=== PATIENT | female | born 1945 | race Caucasian/White ===

== ENCOUNTER 2020-10-09 08:59 | Day surgery (SDC) | payer MEDICARE, SELFPAY ==
[2020-10-03 11:32] VITALS: BMI 40.0
--- NOTE | 2020-10-04 16:50 | MHC.SHP ---
Pre-Procedural Eval Section A The patient is an INPATIENT: No The History & Physical has been completed within 30 days and I have reviewed it.: Yes Section B Chief Complaint: Cataract Right Eye Allergies: Allergies Allergy/AdvReac Type Severity Reaction Status Date / Time Erythromycin Allergy Intermediate swelling, Verified 10/03/20 11:37 itching Penicillins Allergy Intermediate itching/swe Verified 10/03/20 11:37 lling/rash Plan Diagnosis/Plan: Unchanged I have reviewed the history and physical and performed a pertinent physical examination on my patient. No changes have occurred unless specified.
--- NOTE | 2020-10-06 09:50 | HO.ANESPROP2 ---
Documented by User: Jo-Ann Bustillo 10/06/20 09:52 HPI - Anesthesia Eval Consult details Narrative: 75yo F for Right Cataract Extraction IOL Insertion PCP cleared No prev cataract on record PMFSH Past Medical History Medical History COVID-19 vaccine administered Elevated cholesterol GERD (gastroesophageal reflux disease) History of anxiety History of positive PPD Hypothyroid Surgical History Surgical History History of total replacement of right hip Hx of cholecystectomy Hx of hysterectomy Social History Social History Smoking Status: Former smoker Tobacco Type: Cigarette Years Smoked: 40 Smoking Quit Date: 2002 Use of substances other than those prescribed or required for medical reasons: No Have you been hit, kicked, punched, or otherwise hurt by someone within the past year? If so, by whom?: No Are you DNR?: No Advance Directives Information Provided: No Recently lost weight without trying: No Eating poorly because of decreased appetite: No Nutrition Risks: No Nutritional Risk Meds Allergies Allergy/AdvReac Type Severity Reaction Status Date / Time Erythromycin Allergy Intermediate swelling, Verified 10/03/20 11:37 itching Penicillins Allergy Intermediate itching/swe Verified 10/03/20 11:37 lling/rash Home Medications Medication Instructions Recorded Confirmed Last Taken Type citalopram 1 tab PO BEDTIME 10/03/20 10/03/20 Unknown History ibuprofen-diphenhydramine cit 1 cap PO BEDTIME 10/03/20 10/03/20 Unknown History [Advil PM] levothyroxine 1 tab PO BEDTIME 10/03/20 10/03/20 Unknown History omeprazole 20 mg PO BEDTIME 10/03/20 10/03/20 Unknown History simvastatin 1 tab PO BEDTIME 10/03/20 10/03/20 Unknown History Exam Exam Date and Time: October 06, 2020 0950 Height,Weight and Vital Signs: Height 5 ft 3 in Weight 102.512 kg Assessment and Plan Assessment Anesthesia Assessment: Chart Reviewed Documented by User: Carson Cooper 10/09/20 10:41 PMFSH Past Medical History Medical History COVID-19 vaccine administered Elevated cholesterol GERD (gastroesophageal reflux disease) History of anxiety History of positive PPD Hypothyroid Surgical History Surgical History History of total replacement of right hip Hx of cholecystectomy Hx of hysterectomy Social History Social History Smoking Status: Former smoker Tobacco Type: Cigarette Years Smoked: 40 Smoking Quit Date: 2002 Use of substances other than those prescribed or required for medical reasons: No Have you been hit, kicked, punched, or otherwise hurt by someone within the past year? If so, by whom?: No Are you DNR?: No Advance Directives Information Provided: No Recently lost weight without trying: No Eating poorly because of decreased appetite: No Nutrition Risks: No Nutritional Risk Meds Allergies Allergy/AdvReac Type Severity Reaction Status Date / Time Erythromycin Allergy Intermediate swelling, Verified 10/03/20 11:37 itching Penicillins Allergy Intermediate itching/swe Verified 10/03/20 11:37 lling/rash Home Medications Medication Instructions Recorded Confirmed Last Taken Type citalopram 1 tab PO BEDTIME 10/03/20 10/03/20 Unknown History ibuprofen-diphenhydramine cit 1 cap PO BEDTIME 10/03/20 10/03/20 Unknown History [Advil PM] levothyroxine 1 tab PO BEDTIME 10/03/20 10/03/20 Unknown History omeprazole 20 mg PO BEDTIME 10/03/20 10/03/20 Unknown History simvastatin 1 tab PO BEDTIME 10/03/20 10/03/20 Unknown History Exam Airway Mallampati Class: III TM Dist: >3cm Neck ROM: Full
[2020-10-09 10:06] VITALS: BP 141/80; PULSE 84; RESP 18; TEMP 36.1; O2SAT 95
[2020-10-09] MEDS: Tetracaine HCl/PF 0.5% Oph Sol 4 ML DROPS 1 DROP EYE-RIGHT (10:10)
[2020-10-09] MEDS: Phenylephrine HCL 2.5% Oph SoL 2 ML BOTTLE 1 DROP EYE-RIGHT ×3 (10:13→10:16)
[2020-10-09] MEDS: Tropicamide 1 % Ophth Sol 3 ML BTL 1 DROP EYE-RIGHT ×3 (10:13→10:16)
[2020-10-09] MEDS: Lactated Ringers 500 ML 50 ML IV (10:25)
--- NOTE | 2020-10-09 11:31 | HO.PNOPHT ---
Ophthalmology Procedure Procedure Date of Service: 10/09/20 Ophthalmology Viscoelastic: Chin Dunnt Dual Pack Pro Ophthalmology Lenses: TECARIS [id number] (21) Procedure Notes: PREOPERATIVE DIAGNOSIS: Decreased visual acuity right eye secondary to cataract POSTOPERATIVE DIAGNOSIS: Same PROCEDURE: Right cataract extraction with intraocular lens insertion SURGEON: Burt Christensen M.D. ANESTHESIA: Topical/MAC ESTIMATED BLOOD LOSS: None COMPLICATIONS: None After obtaining informed consent, the patient was brought to the operating room suite and placed in the supine position. After adequate sedation per anesthesia, topical drops of Tetracaine were given to the right eye. The eye was then prepped and draped in the usual sterile fashion. The operating room microscope was then positioned over the operative eye and a lid speculum placed. A paracentesis was created. Viscoelastic was then instilled into the anterior chamber. A three plane incision was then created temporally, utilizing a 2.85 mm keratome. Capsulotomy forceps were then utilized to create a circular tear capsulotomy. Hydrodissection and hydrodelineation were carried out until adequate mobilization of the nucleus occurred. Phacoemulsification was then utilized to remove the dense central nucleus followed by removal of the cortical material utilizing the automated aspiration irrigation unit. Viscoelastic was instilled into the posterior capsular bag followed by placement of a posterior chamber intraocular lens without difficulty. The residual Viscoelastic was then removed utilizing the automated IA machine. The wound was checked and found to be watertight. The patient tolerated the procedure well and the lid speculum was removed. Intracameral injection of Vigamox 0.1 mL followed by a subtenon injection of Kenalog-40 0.2 mL were administered. The patient will be seen in the a.m.
[2020-10-09 11:57] VITALS: BP 132/71; PULSE 73; RESP 16; TEMP 36.2; O2SAT 99
== END 2020-10-09 12:20 | disposition home or self-care (01) ==
PROVIDERS: PCP Nurse Practitioner Family; Visit Provider Ophthalmology
PROC: (CPT 66985; principal; 2020-10-09 12:00)
DX: H25.11 Age-related nuclear cataract, right eye (principal); H52.4 Presbyopia; E03.9 Hypothyroidism, unspecified; Z79.899 Other long term (current) drug therapy; Z87.891 Personal history of nicotine dependence
CPT/HCPCS: 66984; J2250; J3300; V2632

== ENCOUNTER 2020-10-23 10:15 | Day surgery (SDC) | payer MEDICARE, SELFPAY ==
[2020-10-03 11:39] VITALS: BMI 40.0
--- NOTE | 2020-10-19 08:37 | MHC.SHP ---
Pre-Procedural Eval Section A The patient is an INPATIENT: No The History & Physical has been completed within 30 days and I have reviewed it.: Yes Section B Chief Complaint: Left Eye Cataract Allergies: Allergies Allergy/AdvReac Type Severity Reaction Status Date / Time Erythromycin Allergy Intermediate swelling, Verified 10/03/20 11:37 itching Penicillins Allergy Intermediate itching/swe Verified 10/03/20 11:37 lling/rash Plan Diagnosis/Plan: Unchanged I have reviewed the history and physical and performed a pertinent physical examination on my patient. No changes have occurred unless specified.
--- NOTE | 2020-10-20 08:47 | HO.ANESPROP2 ---
HPI - Anesthesia Eval Consult details Narrative: 75yo F for Left Cataract Extraction IOL Insertion PCP cleared Right eye done 10/09/20: Midaz 2 PMFSH Past Medical History Medical History COVID-19 vaccine administered Elevated cholesterol GERD (gastroesophageal reflux disease) History of anxiety History of positive PPD Hypothyroid Surgical History Surgical History History of total replacement of right hip Hx of cholecystectomy Hx of hysterectomy Social History Social History Years Smoked: 40 Use of substances other than those prescribed or required for medical reasons: No Have you been hit, kicked, punched, or otherwise hurt by someone within the past year? If so, by whom?: No Are you DNR?: No Advance Directives Information Provided: No Recently lost weight without trying: No Eating poorly because of decreased appetite: No Nutrition Risks: No Nutritional Risk Meds Allergies Allergy/AdvReac Type Severity Reaction Status Date / Time Erythromycin Allergy Intermediate swelling, Verified 10/23/20 11:05 itching Penicillins Allergy Intermediate itching/swe Verified 10/23/20 11:05 lling/rash Home Medications Medication Instructions Recorded Confirmed Last Taken Type citalopram 1 tab PO BEDTIME 10/03/20 10/03/20 Unknown History ibuprofen-diphenhydramine cit 1 cap PO BEDTIME 10/03/20 10/03/20 Unknown History [Advil PM] levothyroxine 1 tab PO BEDTIME 10/03/20 10/03/20 Unknown History omeprazole 20 mg PO BEDTIME 10/03/20 10/03/20 Unknown History simvastatin 1 tab PO BEDTIME 10/03/20 10/03/20 Unknown History Exam Exam Date and Time: October 20, 2020 0847 Height,Weight and Vital Signs: Height 5 ft 3 in Weight 102.512 kg Assessment and Plan Assessment Anesthesia Assessment: Chart Reviewed
[2020-10-23 11:12] VITALS: BP 143/79; PULSE 93; RESP 18; TEMP 36.2; O2SAT 97
[2020-10-23] MEDS: Lactated Ringers 500 ML 50 ML IV (11:15)
[2020-10-23] MEDS: Tetracaine HCl/PF 0.5% Oph Sol 4 ML DROPS 1 DROP EYE-LEFT (11:17)
[2020-10-23] MEDS: Tropicamide 1 % Ophth Sol 3 ML BTL 1 DROP EYE-LEFT ×3 (11:18→11:24)
[2020-10-23] MEDS: Phenylephrine HCL 2.5% Oph SoL 2 ML BOTTLE 1 DROP EYE-LEFT ×3 (11:20→11:26)
--- NOTE | 2020-10-23 12:04 | HO.PNOPHT ---
Ophthalmology Procedure Procedure Date of Service: 10/23/20 Ophthalmology Viscoelastic: Healon Duet Dual Pack Pro Ophthalmology Lenses: TECNIS [id number] (20.5) Procedure Notes: PREOPERATIVE DIAGNOSIS: Decreased visual acuity left eye secondary to cataract POSTOPERATIVE DIAGNOSIS: Same PROCEDURE: Left cataract extraction with intraocular lens insertion SURGEON: Burt Christensen M.D. ANESTHESIA: Topical/MAC ESTIMATED BLOOD LOSS: None COMPLICATIONS: None After obtaining informed consent, the patient was brought to the operation room suite and placed in the supine position. After adequate sedation per anesthesia, topical drops of Tetracaine were given to the left eye. The eye was then prepped and draped in the usual sterile fashion. The operating room microscope was then positioned over the operative eye and a lid speculum placed. A paracentesis was created. Viscoelastic was then instilled into the anterior chamber. A three plane incision was then created temporally, utilizing a 2.85 mm keratome. Capsulotomy forceps were then utilized to create a circular tear capsulotomy. Hydrodissection and hydrodelineation were carried out until adequate mobilization of the nucleus occurred. Phacoemulsification was then utilized to remove the dense central nucleus followed by removal of the cortical material utilizing the automated aspiration irrigation unit. Viscoat elastic was instilled into the posterior capsular bag followed by placement of a posterior chamber intraocular lens without difficulty. The residual Viscoat elastic was then removed utilizing the automated IA machine. The wound was check and found to be watertight. The patient tolerated the procedure well and the lid speculum was removed. Intracameral injection of Vigamox 0.1 mL followed by a subtenon injection of Kenalog-40 0.2 mL were administered. The patient will be seen in the a.m.
[2020-10-23 12:37] VITALS: BP 113/70; PULSE 79; RESP 16; TEMP 36.5; O2SAT 95
== END 2020-10-23 12:39 | disposition home or self-care (01) ==
PROVIDERS: PCP Nurse Practitioner Family; Visit Provider Ophthalmology
PROC: (CPT 66985; principal; 2020-10-23 13:00)
DX: H25.12 Age-related nuclear cataract, left eye (principal); H52.4 Presbyopia; E03.9 Hypothyroidism, unspecified; Z87.891 Personal history of nicotine dependence; Z79.899 Other long term (current) drug therapy
CPT/HCPCS: 66984; J2250; J3010; J3300; V2632

== ENCOUNTER 2020-12-13 11:09 | Emergency (ER) | payer MEDICARE, SELFPAY ==
--- NOTE | ~2020-12-13 | XR_ITS ---
EXAMINATION: XR CHEST CLINICAL INFORMATION: Shortness of breath COMPARISON: Previous chest and rib x-ray May 2018 TECHNIQUE: 2 views of the chest were obtained. FINDINGS: No significant abnormality is noted involving the heart, lungs, mediastinum, bony thorax or soft tissues. XR/XR chest 2V IMPRESSION: Unremarkable examination.
--- NOTE | 2020-12-13 07:18 | ECG_ITS ---
Test Reason : SOB Blood Pressure : / mmHG Vent. Rate : 069 BPM Atrial Rate : 069 BPM P-R Int : 154 ms QRS Dur : 078 ms QT Int : 414 ms P-R-T Axes : 048 025 046 degrees QTc Int : 443 ms Normal sinus rhythm Normal ECG When compared with ECG of 31-MAR-2014 12:46, No significant change was found Referred By: Marlene Robles Electronically Signed By:Luis M Daniels
[2020-12-13 11:17] VITALS: BP 123/67; PULSE 78; RESP 24; TEMP 36.6; O2SAT 93; BMI 37.2
--- NOTE | 2020-12-13 11:46 | ED_ITS ---
HPI - SOB/Dyspnea General Chief Complaint: Dyspnea Stated Complaint: difficulty breathing Time Seen by Provider: 12/13/20 11:46 Source: patient Mode of arrival: ambulatory Limitations: no limitations History of Present Illness MD elicited complaint: shortness of breath and cough Onset (ago): day(s) (2) Context: other (did start a one shot supplement for ketosis) Timing: intermittent Severity: mild Exacerbating factors: coughing Relieving factors: nothing Associated symptoms: denies other symptoms Treatment prior to arrival: none Related Data Home Medications Medication Instructions Recorded Confirmed citalopram 1 tab PO BEDTIME 10/03/20 10/03/20 ibuprofen-diphenhydramine cit 1 cap PO BEDTIME 10/03/20 10/03/20 [Advil PM] levothyroxine 1 tab PO BEDTIME 10/03/20 10/03/20 omeprazole 20 mg PO BEDTIME 10/03/20 10/03/20 simvastatin 1 tab PO BEDTIME 10/03/20 10/03/20 Previous Rx's Medication Instructions Recorded prednisone 40 mg PO DAILY 4 Days #8 tab 12/13/20 Allergies Allergy/AdvReac Type Severity Reaction Status Date / Time Erythromycin Allergy Intermediate swelling, Verified 10/23/20 11:05 itching Penicillins Allergy Intermediate itching/swe Verified 10/23/20 11:05 lling/rash Review of Systems Review of Systems: Constitutional : No Fever, No Chills ENT/Mouth : No sore throat, No Rhinorrhea, No Swallowing Difficulty Eyes: No Eye Pain, No Swelling, No Redness Cardiovascular : No Chest Pain, positive SOB, No Orthopnea, no Edema Respiratory : pos Cough, No Sputum, No Wheezing, positive dyspnea Gastrointestinal : No Nausea, No Vomiting, No Diarrhea, No abdominal Pain, No Hematochezia, No Melena Genitourinary : No Dysuria, No Urinary Frequency, No Hematuria Musculoskeletal : No joint pain, No Myalgias Skin : No Skin Lesions, No rash Neuro : No Weakness, No Numbness, No Dizziness, No Headache Psych : No Anxiety/Panic, No Depression Heme/Lymph: No Bruising, No Lymphadenopathy Endocrine : No Polyuria, No Polydipsia All other systems reviewed and are negative PMFSH Past Medical History Attestation statement: The following information was validated with the patient. Medical History COVID-19 vaccine administered Elevated cholesterol GERD (gastroesophageal reflux disease) History of anxiety History of positive PPD Hypothyroid Surgical History History of total replacement of right hip Hx of cholecystectomy Hx of hysterectomy Social History Social History (Updated 12/13/20 @ 11:56 by Marlene Robles DO) Patient Tobacco Use Status: Former Tobacco user Years Smoked: 40 Use of substances other than those prescribed or required for medical reasons: No Advance Directives: No Advance Directives Information Provided: No Physical Exam Vital Signs: Vital Signs: Last Vital Signs Temp 97.8 F 12/13/20 11:17 Pulse 84 12/13/20 13:22 Resp 16 12/13/20 13:22 BP 133/51 L 12/13/20 13:22 Pulse Ox 99 12/13/20 13:22 Body Mass Index 37.2 Appearance: Alert. Oriented X3. No acute distress. Eyes: Pupils equal, round and reactive to light. ENT: Pharynx normal. Neck: Normal inspection. Neck supple. CVS: Normal heart rate and rhythm. Pulses normal. Respiratory: No respiratory distress. Breath sounds diminished throughout, dry bronchospastic cough Abdomen: Soft and non-tender. Skin: Skin warm and dry. Normal skin color. Normal skin turgor. Extremities: No lower extremity edema. No calf ttp Neuro: Oriented X 3. No motor deficit. No sensory deficit. Course Course Course Narrative: 1 to 2 days of symptoms neg ddimer, neg troponin, CXR negative, BNP negative - feels better after neb stable for DC at this time, will start on low dose prednisone and do INH teaching, sats 93% on RA MDM - SOB/Dyspnea MDM Narrative Medical decision making narrative: 75 yo female with hx of hypothyroidism, GERD, depression, HLD startd new ketone diet and started taking a supplement one shot - c/o dyspnea x 2 days has a dry bronchospastic cough will need labs, troponin, CXR, COVID swab, EKG ddimer - dispo per results and findings. Lab Data Result diagrams: 12/13/20 12:11 12/13/20 12:11 Labs: Lab Results 12/13/20 12/13/20 12/13/20 Range/Units 11:23 12:11 12:11 WBC 7.8 (4.8-10.8) X10*3/uL RBC 4.59 (4.20-5.50) X10*6/uL Hgb 13.0 (12.0-16.0) g/dl Hct 40.4 (37-47) % MCV 88.0 (80-98) fL MCH 28.3 (27.0-33.0) pg MCHC 32.2 (31.0-35.0) g/dl RDW 13.3 (11.0-16.0) % Plt Count 216 (160-400) X10*3/uL MPV 10.6 (9.4-12.3) fL Immature Gran % (Auto) 0.3 (0.0-0.4) % Neut % (Auto) 51.9 (45-73) % Lymph % (Auto) 32.3 (20-40) % [place] % (Auto) 4.9 (2-11) % Eos % (Auto) 9.7 H (0-4) % Baso % (Auto) 0.9 (0-2) % Lymph # (Auto) 2.5 (1.2-4.9) X10*3/uL [place] # (Auto) 0.4 (0.1-1.2) X10*3/uL Eos # (Auto) 0.8 H (0.0-0.4) X10*3/uL Baso # (Auto) 0.1 (0.0-0.2) X10*3/uL Abs Immat Gran (auto) 0.02 (0.00-0.03) X10*3/uL Absolute Neuts (auto) 4.1 (2.0-8.3) X10*3/uL Absolute Nucleated RBC 0.000 (0.0-0.012) X10*3/uL Nucleated RBC % (auto) 0.0 (0.0-0.2) /100WBC D-Dimer NG/ML Sodium 141 (135-145) mmol/L Potassium 4.0 (3.3-5.1) mmol/L Chloride 106 (96-108) mmol/L Carbon Dioxide 26 (22-29) mmol/L Anion Gap 13 (12-20) BUN 14 (9-16) mg/dL Creatinine 0.87 (0.5-1.4) mg/dL Estim Creat Clear Calc 63.2 Estimated GFR > 60 Random Glucose 108 (60-115) mg/dL Calcium 9.5 (8.4-10.2) mg/dL Magnesium 2.0 (1.6-2.6) mg/dL Total Bilirubin 0.3 (0.0-1.0) mg/dL Direct Bilirubin < 0.2 (0.0-0.5) mg/dL AST 14 (5-31) U/L ALT 9 (0-31) U/L Alkaline Phosphatase 75 (39-117) U/L Troponin I High Sens (<3.5-17.0) ng/L B-Natriuretic Peptide (<100) pg/mL Total Protein 6.4 L (6.5-8.0) g/dL Albumin 4.0 (3.5-5.0) g/dL Lipase 47 (8-78) U/L COVID-19 (AXEL) Negative (Negative) COVID-19 Clin Com See Note 12/13/20 12/13/20 Range/Units 12:11 12:11 WBC (4.8-10.8) X10*3/uL RBC (4.20-5.50) X10*6/uL Hgb (12.0-16.0) g/dl Hct (37-47) % MCV (80-98) fL MCH (27.0-33.0) pg MCHC (31.0-35.0) g/dl RDW (11.0-16.0) % Plt Count (160-400) X10*3/uL MPV (9.4-12.3) fL Immature Gran % (Auto) (0.0-0.4) % Neut % (Auto) (45-73) % Lymph % (Auto) (20-40) % [place] % (Auto) (2-11) % Eos % (Auto) (0-4) % Baso % (Auto) (0-2) % Lymph # (Auto) (1.2-4.9) X10*3/uL [place] # (Auto) (0.1-1.2) X10*3/uL Eos # (Auto) (0.0-0.4) X10*3/uL Baso # (Auto) (0.0-0.2) X10*3/uL Abs Immat Gran (auto) (0.00-0.03) X10*3/uL Absolute Neuts (auto) (2.0-8.3) X10*3/uL Absolute Nucleated RBC (0.0-0.012) X10*3/uL Nucleated RBC % (auto) (0.0-0.2) /100WBC D-Dimer < 200 NG/ML Sodium (135-145) mmol/L Potassium (3.3-5.1) mmol/L Chloride (96-108) mmol/L Carbon Dioxide (22-29) mmol/L Anion Gap (12-20) BUN (9-16) mg/dL Creatinine (0.5-1.4) mg/dL Estim Creat Clear Calc Estimated GFR Random Glucose (60-115) mg/dL Calcium (8.4-10.2) mg/dL Magnesium (1.6-2.6) mg/dL Total Bilirubin (0.0-1.0) mg/dL Direct Bilirubin (0.0-0.5) mg/dL AST (5-31) U/L ALT (0-31) U/L Alkaline Phosphatase (39-117) U/L Troponin I High Sens < 3.5 (<3.5-17.0) ng/L B-Natriuretic Peptide < 10 (<100) pg/mL Total Protein (6.5-8.0) g/dL Albumin (3.5-5.0) g/dL Lipase (8-78) U/L COVID-19 (AXEL) (Negative) COVID-19 Clin Com ECG Data Attestation: I personally reviewed and interpreted this ECG as follows: ECG interpretation date: 12/13/20 ECG interpretation time: 12:01 Interpretation: Rate: 69 Rhythm: NSR [place]: normal Normal P waves. Normal GIOVANNA. Normal QRS complex. ST T wave : normal no JHOANA qTC: normal prior studies: no acute ischemia The study has been interpreted contemporaneously by me. . Discharge Plan Discharge Clinical Impression: Acute bronchospasm Patient Disposition: Home, Self-Care Instructions: Dyspnea (ED) Additional Instructions: return to ED for any worsening symptoms or concerns STOP TAKING ONE SHOT USE INHALER 2 PUFFS EVERY 4 HOURS NEEDED FOR COUGH AND WHEEZING Prescriptions: New prednisone 20 mg tablet 40 mg PO DAILY 4 Days Qty: 8 RF: 0 No Action simvastatin 40 mg tablet 1 tab PO BEDTIME RF: 0 citalopram 20 mg tablet 1 tab PO BEDTIME RF: 0 levothyroxine 125 mcg tablet 1 tab PO BEDTIME RF: 0 Advil PM 200-38 mg Tablet 1 cap PO BEDTIME RF: 0 omeprazole 20 mg Tablet,Delayed Release (Dr/Ec) 20 mg PO BEDTIME RF: 0 Referrals: Linda Bell NP [Primary Care Provider] - 2 days
[2020-12-13 11:58] LABS: IDNOW Serial# 9DD0AD1C
[2020-12-13 11:59] LABS: COVID-19 Test Negative (Negative)
[2020-12-13 12:11] VITALS: PULSE 68; O2SAT 94
[2020-12-13] MEDS: Albuterol Sulfate (0.083%) 2.5 MG/3 ML VIAL.NEB INHALE (12:11)
[2020-12-13 12:25] LABS: MANUAL DIFF FLAG NO
[2020-12-13 12:26] LABS: Basophils Absolute Auto 0.1 X10*3/uL (0.0-0.2); Basophils Percent Auto 0.9 % (0-2); Eosinophils Absolute Auto 0.8 X10*3/uL (0.0-0.4); Eosinophils Percent Auto 9.7 % (0-4); Hematocrit 40.4 % (37-47); Imm Gran Abs Auto 0.02 X10*3/uL (0.00-0.03); Imm Gran Pct Auto 0.3 % (0.0-0.4); Lymphocytes Absolute Auto 2.5 X10*3/uL (1.2-4.9); Lymphocytes Percent Auto 32.3 % (20-40); Mean Corpuscular HGB Conc 32.2 g/dl (31.0-35.0); Mean Corpuscular Hemoglobin 28.3 pg (27.0-33.0); Mean Platelet Volume 10.6 fL (9.4-12.3); Monocytes Absolute Auto 0.4 X10*3/uL (0.1-1.2); Monocytes Percent Auto 4.9 % (2-11); Neutrophils Absolute Auto 4.1 X10*3/uL (2.0-8.3); Neutrophils Percent Auto 51.9 % (45-73); Platelet Count 216 X10*3/uL (160-400); Red Blood Count 4.59 X10*6/uL (4.20-5.50); Red Cell Distribution Width 13.3 % (11.0-16.0); White Blood Count 7.8 X10*3/uL (4.8-10.8)
[2020-12-13 12:37] LABS: D Dimer < 200 NG/ML
[2020-12-13 13:15] LABS: Alanine Aminotransferase 9 U/L (0-31); Alkaline Phosphatase 75 U/L (39-117); Anion Gap 13 (12-20); Aspartate Amino Transferase 14 U/L (5-31); Bilirubin Direct < 0.2 mg/dL (0.0-0.5); Bilirubin Total 0.3 mg/dL (0.0-1.0); Blood Urea Nitrogen 14 mg/dL (9-16); Calcium 9.5 mg/dL (8.4-10.2); Carbon Dioxide 26 mmol/L (22-29); Chloride 106 mmol/L (96-108); Creatinine Clr Calc Pharmacy 63.2; Estimated Glomerular Filt Rate > 60; Glucose Random 108 mg/dL (60-115); Lipase 47 U/L (8-78); Sodium 141 mmol/L (135-145); Total Protein 6.4 g/dL (6.5-8.0)
[2020-12-13 13:16] LABS: B Type Natriuretic Peptide < 10 pg/mL (<100); Troponin-I High Sensitivity < 3.5 ng/L (<3.5-17.0)
[2020-12-13 13:22] VITALS: BP 133/51; PULSE 84; RESP 16; O2SAT 99
[2020-12-13] MEDS: predniSONE 20 MG TABLET 40 MG PO (13:32)
[2020-12-13] MEDS: Albuterol Sulfate 90 MCG 8 GM INHALER 2 PUFF INHALE (13:37)
== END 2020-12-13 13:49 | disposition home or self-care (01) ==
PROVIDERS: Emergency Provider Emergency Medicine; PCP Nurse Practitioner Family
DX: J98.01 Acute bronchospasm (principal); R06.00 Dyspnea, unspecified; R05 Cough; R06.02 Shortness of breath; Z20.822 Contact with and (suspected) exposure to COVID-19; Z79.899 Other long term (current) drug therapy; Z87.891 Personal history of nicotine dependence
CPT/HCPCS: 36415; 71046; 80048; 80076; 83690; 83735; 83880; 84484; 85025; 85379; 87635; 93005; 94640; 94664; 99284

== ENCOUNTER 2021-01-29 09:07 | Outpatient (REF) | payer MEDICARE, SELFPAY ==
[2021-01-29 10:29] LABS: Hematocrit 40.1 % (37-47); Hemoglobin 12.6 g/dl (12.0-16.0); Mean Corpuscular HGB Conc 31.4 g/dl (31.0-35.0); Mean Corpuscular Hemoglobin 28.3 pg (27.0-33.0); Mean Corpuscular Volume 90.1 fL (80-98); Mean Platelet Volume 10.5 fL (9.4-12.3); Platelet Count 248 X10*3/uL (160-400); Red Blood Count 4.45 X10*6/uL (4.20-5.50); Red Cell Distribution Width 13.6 % (11.0-16.0); White Blood Count 9.5 X10*3/uL (4.8-10.8)
[2021-01-29 10:53] LABS: Cholesterol 194 mg/dL; HDL Cholesterol 64 mg/dL; LDL Cholesterol Calculated 100 mg/dl; Triglycerides 151 mg/dL
[2021-01-29 11:18] LABS: Thyroid Stimulating Hormone 0.56 uIU/mL (0.32-4.0)
== END 2021-01-29 09:08 | disposition home or self-care (01) ==
LOC: HO.LAB 09:07
PROVIDERS: PCP Nurse Practitioner Family; Visit Provider Nurse Practitioner Family
DX: E78.00 Pure hypercholesterolemia, unspecified (principal); E03.9 Hypothyroidism, unspecified
CPT/HCPCS: 36415; 80061; 84443; 85027

== ENCOUNTER 2021-05-15 14:27 | Outpatient (REF) | payer MEDICARE, SELFPAY ==
[2021-05-15 16:08] LABS: MANUAL DIFF FLAG NO
[2021-05-15 16:10] LABS: Basophils Absolute Auto 0.1 X10*3/uL (0.0-0.2); Basophils Percent Auto 0.8 % (0-2); Eosinophils Absolute Auto 0.5 X10*3/uL (0.0-0.4); Eosinophils Percent Auto 6.1 % (0-4); Hematocrit 42.3 % (37.0-47.0); Hemoglobin 13.1 g/dl (12.0-16.0); Imm Gran Abs Auto 0.04 X10*3/uL (0.00-0.03); Imm Gran Pct Auto 0.5 % (0.0-0.4); Lymphocytes Absolute Auto 2.1 X10*3/uL (1.2-4.9); Lymphocytes Percent Auto 26.4 % (20-40); Mean Corpuscular Hemoglobin 27.6 pg (27.0-33.0); Mean Corpuscular Volume 89.1 fL (80.0-98.0); Mean Platelet Volume 9.9 fL (9.4-12.3); Monocytes Absolute Auto 0.4 X10*3/uL (0.1-1.2); Monocytes Percent Auto 5.4 % (2-11); Neutrophils Absolute Auto 4.8 x10*3/uL (2.0-8.3); Neutrophils Percent Auto 60.8 % (45-73); Platelet Count 254 X10*3/uL (160-400); Red Blood Count 4.75 X10*6/uL (4.20-5.50); Red Cell Distribution Width 12.9 % (11.0-16.0); White Blood Count 7.9 X10*3/uL (4.8-10.8)
[2021-05-15 17:21] LABS: Erythrocyte Sedimentation Rate 7 MM/HR (0-20)
[2021-05-16 13:36] LABS: IgA 131 mg/dL (70-320); IgG 813 mg/dL (600-1540); IgM 73 mg/dL (50-300)
== END 2021-05-15 14:28 | disposition home or self-care (01) ==
LOC: HO.LAB 14:27
PROVIDERS: PCP Nurse Practitioner Family; Visit Provider Hospitalist
DX: J44.9 Chronic obstructive pulmonary disease, unspecified (principal); J45.40 Moderate persistent asthma, uncomplicated; D72.10 Eosinophilia, unspecified; R60.0 Localized edema; Z79.899 Other long term (current) drug therapy
CPT/HCPCS: 36415; 82784; 82785; 85025; 85652; 86003; 99202

== ENCOUNTER 2021-06-22 08:59 | Day surgery (SDC) | payer MEDICARE, SELFPAY ==
[2021-06-15 13:34] VITALS: BMI 37.5
--- NOTE | 2021-06-21 09:21 | HO.ANESPROP2 ---
Documented by User: Jo-Ann Bustillo NP 06/21/21 09:32 HPI - Anesthesia Eval Consult details Narrative: 76yo F for Upper Endoscopy with balloon dilation and Colonoscopy with antibiotics Preop abx per GI d/t [facility] Active Problems Active Problems: All Active Problems (Updated 06/15/21 @ 13:36 by Marta Gilmore RN) Bilateral lower extremity edema (Acute) Eosinophilia (Acute) Asthma (Acute) Past Medical History Medical History Asthma Bilateral lower extremity edema COVID-19 vaccine series completed Elevated cholesterol Eosinophilia GERD (gastroesophageal reflux disease) History of anxiety History of positive PPD Hypothyroid Surgical History Surgical History History of total replacement of right hip Hx of cataract extraction Hx of cholecystectomy Hx of hysterectomy Social History Social History Are you a primary healthcare business analyst to a significant other at home: No Do you presently have visiting nurse or other home services: No Patient Tobacco Use Status: Former Tobacco user Quit Date: age 56 Tobacco use type: Cigarette Years Smoked: 40 Use of substances other than those prescribed or required for medical reasons: No Have you been hit, kicked, punched, or otherwise hurt by someone within the past year? If so, by whom?: No Are you DNR?: No Advance Directives: Yes Advance Directives Information Provided: Yes Advance Directives on File: Yes Advance Directives Date on File: 07/12/15 Recently lost weight without trying: No Eating poorly because of decreased appetite: No Nutrition Risks: No Nutritional Risk Poor oral hygiene: No (dental implant upper right front-is somewhat LOOSE) Meds Allergies Allergy/AdvReac Type Severity Reaction Status Date / Time Erythromycin Allergy Intermediate swelling, Verified 05/15/21 14:52 itching Penicillins Allergy Intermediate itching/swe Verified 05/15/21 14:52 lling/rash Home Medications Medication Instructions Recorded Confirmed Last Taken Type citalopram 20 mg tablet 1 tab PO BEDTIME 10/03/20 06/15/21 Unknown History ibuprofen-diphenhydramine citrate 1 cap PO BEDTIME 10/03/20 06/15/21 Unknown History 200 mg-38 mg tablet (Advil PM) levothyroxine 125 mcg tablet 1 tab PO BEDTIME 10/03/20 06/15/21 Unknown History omeprazole 20 mg tablet,delayed 20 mg PO BEDTIME 10/03/20 06/15/21 Unknown History release simvastatin 40 mg tablet 1 tab PO BEDTIME 10/03/20 06/15/21 Unknown History budesonide-formoterol HFA 160 2 puff INHALATION BID 05/15/21 06/22/21 06/22/21 07:00 History mcg-4.5 mcg/actuation aerosol inhaler (Symbicort) Exam Exam Date and Time: June 21, 2021 0921 Height,Weight and Vital Signs: Height 5 ft 3 in Weight 96.162 kg Pertinent Lab Results Pertinent Lab Results: Laboratory Tests 12/13/20 05/15/21 12:11 15:55 WBC 7.9 Hgb 13.1 Hct 42.3 Plt Count 254 Sodium 141 Potassium 4.0 Chloride 106 Carbon Dioxide 26 BUN 14 Creatinine 0.87 Narrative Narrative: EKG 11/2020 Vent. Rate : 069 BPM ? ? Atrial Rate : 069 BPM ?? P-R Int : 154 ms? QRS Dur : 078 ms ? ? QT Int : 414 ms ? ? ? P-R-T Axes : 048 025 046 degrees ?? QTc Int : 443 ms ? Normal sinus rhythm Normal ECG When compared with ECG of 31-MAR-2014 12:46, No significant change was found Assessment and Plan Assessment Anesthesia Assessment: Chart Reviewed Documented by User: Janna Presley 06/22/21 10:33 ON LICENSE OF [facility] Past Medical History Medical History Asthma Bilateral lower extremity edema COVID-19 vaccine series completed Elevated cholesterol Eosinophilia GERD (gastroesophageal reflux disease) History of anxiety History of positive PPD Hypothyroid Family History Family history of problems with anesthesia: No Surgical History Surgical History History of total replacement of right hip Hx of cataract extraction Hx of cholecystectomy Hx of hysterectomy History of Problems with Anesthesia: No Social History Social History Are you a primary healthcare business analyst to a significant other at home: No Do you presently have visiting nurse or other home services: No Patient Tobacco Use Status: Former Tobacco user Quit Date: age 56 Tobacco use type: Cigarette Years Smoked: 40 Use of substances other than those prescribed or required for medical reasons: No Have you been hit, kicked, punched, or otherwise hurt by someone within the past year? If so, by whom?: No Are you DNR?: No Advance Directives: Yes Advance Directives Information Provided: Yes Advance Directives on File: Yes Advance Directives Date on File: 07/12/15 Recently lost weight without trying: No Eating poorly because of decreased appetite: No Nutrition Risks: No Nutritional Risk Poor oral hygiene: No (dental implant upper right front-is somewhat LOOSE) Meds Allergies Allergy/AdvReac Type Severity Reaction Status Date / Time Erythromycin Allergy Intermediate swelling, Verified 05/15/21 14:52 itching Penicillins Allergy Intermediate itching/swe Verified 05/15/21 14:52 lling/rash Home Medications Medication Instructions Recorded Confirmed Last Taken Type citalopram 20 mg tablet 1 tab PO BEDTIME 10/03/20 06/15/21 Unknown History ibuprofen-diphenhydramine citrate 1 cap PO BEDTIME 10/03/20 06/15/21 Unknown History 200 mg-38 mg tablet (Advil PM) levothyroxine 125 mcg tablet 1 tab PO BEDTIME 10/03/20 06/15/21 Unknown History omeprazole 20 mg tablet,delayed 20 mg PO BEDTIME 10/03/20 06/15/21 Unknown History release simvastatin 40 mg tablet 1 tab PO BEDTIME 10/03/20 06/15/21 Unknown History budesonide-formoterol HFA 160 2 puff INHALATION BID 05/15/21 06/22/21 06/22/21 07:00 History mcg-4.5 mcg/actuation aerosol inhaler (Symbicort) Exam Airway Mallampati Class: III TM Dist: >3cm Neck ROM: Full Assessment and Plan Final Anesthetic Review Family History of Problems with Anesthesia: No History of Problems with Anesthesia: No NPO: Yes ASA Class: III Anesthetic Plan Anesthetic Plan: MAC: Disposition: Standard PACU Documented by User: Alexia Noyola MD 06/22/21 10:49 PMFSH Active Problems Active Problems: All Active Problems (Updated 06/15/21 @ 13:36 by Marta Gilmore RN) Bilateral lower extremity edema (Acute)- low salt diet recommended. No medications. No h/o CHF Eosinophilia (Acute) Asthma (Acute) Increased BMI Asthma/COPD. On daily inhalers Past Medical History Medical History Asthma Bilateral lower extremity edema COVID-19 vaccine series completed Elevated cholesterol Eosinophilia GERD (gastroesophageal reflux disease) History of anxiety History of positive PPD Hypothyroid Surgical History Surgical History History of total replacement of right hip Hx of cataract extraction Hx of cholecystectomy Hx of hysterectomy Social History Social History Are you a primary healthcare business analyst to a significant other at home: No Do you presently have visiting nurse or other home services: No Patient Tobacco Use Status: Former Tobacco user Quit Date: age 56 Tobacco use type: Cigarette Years Smoked: 40 Use of substances other than those prescribed or required for medical reasons: No Have you been hit, kicked, punched, or otherwise hurt by someone within the past year? If so, by whom?: No Are you DNR?: No Advance Directives: Yes Advance Directives Information Provided: Yes Advance Directives on File: Yes Advance Directives Date on File: 07/12/15 Recently lost weight without trying: No Eating poorly because of decreased appetite: No Nutrition Risks: No Nutritional Risk Poor oral hygiene: No (dental implant upper right front-is somewhat LOOSE) Meds Allergies Allergy/AdvReac Type Severity Reaction Status Date / Time Erythromycin Allergy Intermediate swelling, Verified 05/15/21 14:52 itching Penicillins Allergy Intermediate itching/swe Verified 05/15/21 14:52 lling/rash Home Medications Medication Instructions Recorded Confirmed Last Taken Type citalopram 20 mg tablet 1 tab PO BEDTIME 10/03/20 06/15/21 Unknown History ibuprofen-diphenhydramine citrate 1 cap PO BEDTIME 10/03/20 06/15/21 Unknown History 200 mg-38 mg tablet (Advil PM) levothyroxine 125 mcg tablet 1 tab PO BEDTIME 10/03/20 06/15/21 Unknown History omeprazole 20 mg tablet,delayed 20 mg PO BEDTIME 10/03/20 06/15/21 Unknown History release simvastatin 40 mg tablet 1 tab PO BEDTIME 10/03/20 06/15/21 Unknown History budesonide-formoterol HFA 160 2 puff INHALATION BID 05/15/21 06/22/21 06/22/21 07:00 History mcg-4.5 mcg/actuation aerosol inhaler (Symbicort) Exam Height,Weight and Vital Signs: Height 5 ft 3 in Weight 96.162 kg Vital Signs Temp Pulse Resp BP Pulse Ox 06/22/21 10:20 98 F 72 18 106/73 96 Airway Loose/Missing/Broken Teeth: Yes (Loose dental implant. Has fallen out in the past) Heart: RRR Lungs: CTAB Assessment and Plan Assessment Anesthesia Assessment: Anesthesia Plan Discussed Final Anesthetic Review Final Preanesthetic Review: No Changes in Pt Med Stat, Meds/Allgs Chart Reviewed, Consent Obtained/Reviewed and Anes Risks/Benef Reviewed Patient Risk: Intermediate Procedure Risk: Low Assessment/Block/Sedation in SS: Assess/Block/Sedation-SS
[2021-06-22] MEDS: Lactated Ringers 1,000 ML 100 ML IVCONT (09:35)
[2021-06-22] MEDS: Gentamicin Sulfate/NaCl 80 MG/100 ML PIGGYBACK 100 MG IV (09:41)
[2021-06-22] MEDS: vancomycin HCL 1,500 MG in 0.9 % Sodium Chloride 500 ML 333.33 MG IV (10:04)
[2021-06-22] MEDS: Sodium Phosphate,Mono-Dibasic 133 ML ENEMA PR (10:11)
[2021-06-22 10:20] VITALS: BP 106/73; PULSE 72; RESP 18; TEMP 36.6; O2SAT 96
--- NOTE | 2021-06-22 11:54 | PM.OP ---
Brief Operative Note Date of Service: 06/22/21 Pre-op diagnosis: Dysphagia, Screening Post-op diagnosis: other (Esophageal stricture/Reflux esophagitis/Hiatal hernia, Colon polyp) Procedure: EGD with Balloon Dilation and biopsies, Colonoscopy to the cecum with hot snare polypectomy Surgeon: Refugio Mix Anesthesia: MAC Was an Mixer Helper used for this Procedure?: No Estimated blood loss (mL): 2.0 Pathology: other (A. EG Junction at 32cm B. Cecal polyp) Condition: stable Disposition: PACU
[2021-06-22 11:56] VITALS: BP 109/44; PULSE 88; RESP 20; TEMP 36.6; O2SAT 97
[2021-06-22 12:12] VITALS: BP 121/55; PULSE 76; RESP 18; TEMP 36.6; O2SAT 98
--- NOTE | 2021-06-23 01:01 | OP_ITS ---
SURGEON: Refugio Mix MD INDICATIONS: The patient presents for evaluation of gastroesophageal reflux, dysphagia, and colorectal cancer screening. Full consent was obtained from her for both procedures, including risks of bleeding and perforation. PREOPERATIVE DIAGNOSIS: POSTOPERATIVE DIAGNOSIS: PROCEDURE PERFORMED: Esophagogastroduodenoscopy with balloon dilation of esophageal stricture and biopsies and colonoscopy to the cecum with hot snare polypectomy. ESTIMATED BLOOD LOSS: COMPLICATIONS: ANESTHESIA: ASSISTANTS: SPECIMENS: PREOPERATIVE DIAGNOSES: Dysphagia, gastroesophageal reflux, and colorectal cancer screening. POSTOPERATIVE DIAGNOSES: Dysphagia, gastroesophageal reflux, and colorectal cancer screening, hiatal hernia, mild distal esophageal stricture, reflux esophagitis, colon polyp, diverticulosis, and internal hemorrhoids. DESCRIPTION OF PROCEDURE: The patient was placed in the left lateral decubitus position. The Olympus video gastroscope was passed in the posterior oropharynx and upper esophagus under direct vision. The scope was passed slowly into the distal esophagus. The gastroesophageal junction appeared at 32 cm. This area was notable for a nonobstructing fibrotic-appearing stricture with some friability and erythema consistent with some reflux esophagitis. There was no gross evidence of Tripp's esophagus, ulceration, nor mass. The scope easily passed this into a small to moderate-sized hiatal hernia. The scope was advanced to the pylorus and duodenum was cannulated the descending portion. The duodenum including the bulb appeared normal without mass or ulceration. Scope was withdrawn back to the stomach. The gastric antrum and body appeared normal with good peristalsis. The scope was retroflexed, visualizing the proximal stomach carefully, which appeared normal, without any sign of mass or ulceration. The scope was straightened and withdrawn back to the esophagus. I did use a [employer] incremental balloon to dilate the stricture from 18 mm to 19 mm at the recommended pressure for between 30 and 60 seconds each. Postdilation, there did appear to be definite disruption of the stricture and heme noted. I also obtained biopsies at the EG junction. Proximal to this, the esophageal mucosa appeared normal. Scope was withdrawn from the patient. She was turned around for the colonoscopy. The digital rectal exam revealed no abnormalities. The Olympus video pediatric colonoscope was entered into the rectum and advanced to the cecum. Once in the cecum, I did identify cecal pouch with appendiceal orifice. There was a fair amount of liquid stool in the cecum, which was irrigated and suctioned away as best as possible. In the region of the appendiceal orifice, just beneath it, there was an approximately 10 to 12 mm flat but slightly raised polyp, which was removed with the hot snare polypectomy and recovered by suction. Post polypectomy, there did not appear to be any residual polyp nor bleeding. The scope was then slowly withdrawn, assessing all mucosal surfaces carefully. Preparation throughout the colon, particularly in the descending and sigmoid colon, was limited due to a lot of liquid stool. A long time was spent irrigating and then suctioning, which did allow for good visualization overall. I did not visualize any other polyps, colitis, nor angiodysplasia. There was a mild amount of sigmoid diverticulosis. In the rectum, the scope was retroflexed visualizing internal hemorrhoids, but no other pathology. The rectal mucosa appeared normal. The scope was straightened and withdrawn from the patient. She tolerated both procedures well and was returned to recovery area in stable condition. IMPRESSION: 1. Distal esophageal stricture, status post balloon dilation. 2. Reflux esophagitis. 3. Hiatal hernia. 4. Colon polyp, status post hot snare polypectomy. 5. Sigmoid diverticulosis. 6. Internal hemorrhoids. PLAN: The results of the pathology will be checked. Overall, I would recommend a repeat colonoscopy in 3 years for further screening given the removal of the polyp and the somewhat limited visualization. Given the findings in the upper endoscopy, I shall increase omeprazole from 20 mg to 40 mg daily. I did advise her to stay off all aspirin and NSAIDs for at least 2 weeks, but long-term if possible. She was advised to see me in several months for a followup visit as well. She did receive preprocedure antibiotics in regard to her relatively recent hip replacement. MD UZAIR Sarmiento/JERONIMO / [id number] MTDChaitanya
== END 2021-06-22 12:58 | disposition home or self-care (01) ==
PROVIDERS: PCP Nurse Practitioner Family; Visit Provider Internal Medicine
PROC: (CPT 45385; principal; 2021-06-22 10:30)
DX: Z12.11 Encounter for screening for malignant neoplasm of colon (principal); D12.0 Benign neoplasm of cecum; K57.30 Diverticulosis of large intestine without perforation or abscess without bleeding; K64.8 Other hemorrhoids; K22.2 Esophageal obstruction; K21.00 Gastro-esophageal reflux disease with esophagitis, without bleeding; K44.9 Diaphragmatic hernia without obstruction or gangrene; E78.5 Hyperlipidemia, unspecified; E03.9 Hypothyroidism, unspecified; J45.909 Unspecified asthma, uncomplicated; Z79.51 Long term (current) use of inhaled steroids; Z79.899 Other long term (current) drug therapy; Z90.49 Acquired absence of other specified parts of digestive tract; Z96.641 Presence of right artificial hip joint; Z87.891 Personal history of nicotine dependence
CPT/HCPCS: 45385; 43249; 43239; 88305; C1726; J1580; J2370; J3370

== ENCOUNTER 2021-06-25 08:56 | Outpatient (REF) | payer MEDICARE, SELFPAY ==
--- NOTE | 2021-06-25 14:45 | PFT_ITS ---
Forced vital capacity 77%. FEV1 72%. FEV1 over FVC ratio is 70. FEF 25-75 is 59% and MVV 68%. Post bronchodilator therapy, there is a significant improvement in FVC, FEV1, EOA04-30, resulting in almost complete reversibility. Total lung capacity 92 and residual volume 92. Diffusion capacity 75. CONCLUSION: Mild obstructive airway disorder with significant response to bronchodilator therapy. These findings are consistent with bronchial asthma. Clinical correlation recommended. MD ANGELICA Zurita/MODL / [id number]
== END 2021-06-25 08:57 | disposition home or self-care (01) ==
LOC: HO.RESP 08:56
PROVIDERS: PCP Nurse Practitioner Family; Visit Provider Hospitalist
DX: J45.909 Unspecified asthma, uncomplicated (principal)
CPT/HCPCS: 94060; 94727; 94729

== ENCOUNTER → 2021-06-28 12:52 | Outpatient (BNVA) | payer MEDICARE, SELFPAY | PROVIDERS: PCP Nurse Practitioner Family; Visit Provider Hospitalist | DX: J45.40 Moderate persistent asthma, uncomplicated (principal); J44.9 Chronic obstructive pulmonary disease, unspecified; D72.10 Eosinophilia, unspecified; R60.0 Localized edema | CPT/HCPCS: 94640; 99212 ==

== ENCOUNTER 2021-11-06 07:06 | Outpatient (REF) | payer MEDICARE, SELFPAY ==
[2021-11-06 08:20] LABS: Hematocrit 41.1 % (37.0-47.0); Hemoglobin 12.9 g/dl (12.0-16.0); Mean Corpuscular HGB Conc 31.4 g/dl (31.0-35.0); Mean Corpuscular Hemoglobin 27.8 pg (27.0-33.0); Mean Corpuscular Volume 88.6 fL (80.0-98.0); Platelet Count 238 X10*3/uL (160-400); Red Blood Count 4.64 X10*6/uL (4.20-5.50); Red Cell Distribution Width 13.4 % (11.0-16.0)
[2021-11-06 08:41] LABS: Alanine Aminotransferase 11 U/L (0-31); Albumin Level 4.1 g/dL (3.5-5.0); Alkaline Phosphatase 91 U/L (39-117); Anion Gap 11 (12-20); Aspartate Amino Transferase 12 U/L (5-31); Bilirubin Total 0.3 mg/dL (0.0-1.0); Blood Urea Nitrogen 13 mg/dL (9-16); Calcium 9.3 mg/dL (8.4-10.2); Carbon Dioxide 30 mmol/L (22-29); Chloride 103 mmol/L (96-108); Estimated Glomerular Filt Rate > 60; Glucose Fasting 98 mg/dL (60-99); Potassium 4.3 mmol/L (3.3-5.1); Sodium 140 mmol/L (135-145); Total Protein 6.7 g/dL (6.5-8.0)
== END 2021-11-06 07:07 | disposition home or self-care (01) ==
LOC: HO.LAB 07:06
PROVIDERS: PCP Nurse Practitioner Family; Visit Provider Nurse Practitioner Family
DX: E78.00 Pure hypercholesterolemia, unspecified (principal); E03.9 Hypothyroidism, unspecified; K21.9 Gastro-esophageal reflux disease without esophagitis
CPT/HCPCS: 36415; 80053; 85027

== ENCOUNTER → 2021-12-28 13:02 | Outpatient (BNVA) | payer MEDICARE, SELFPAY | PROVIDERS: PCP Nurse Practitioner Family; Visit Provider Hospitalist | DX: J44.9 Chronic obstructive pulmonary disease, unspecified (principal); J45.40 Moderate persistent asthma, uncomplicated; D72.10 Eosinophilia, unspecified; R60.0 Localized edema | CPT/HCPCS: 99212 ==

== ENCOUNTER 2023-03-31 11:16 | Outpatient (AMB) | payer MEDICARE, SELFPAY ==
[2023-03-31 11:18] VITALS: BP 111/58; PULSE 101; O2SAT 95
--- NOTE | 2023-03-31 11:18 | MHC.OFFVIS ---
Intake Vital Signs 03/31/23 11:18 Weight 203 lb 14.841 oz BP 111/58 L Blood Pressure Location Rt brachial Position Sitting Pulse 101 H Pulse Source Doppler Pulse Oximetry (%) 95 Oxygen Delivery Method Room Air Intake Visit Reasons: dyspnea Allergies erythromycin base Allergy (Intermediate, Verified 03/31/23 11:23) swelling, itching Penicillins Allergy (Intermediate, Verified 03/31/23 11:23) itching/swelling/rash nickel Allergy (Verified 03/31/23 11:23) Unknown HPI HPI Comments History of Present Illness Details The patient is a 77-year-old woman with the family history of asthma in addition to eczema who apparently the last few months she started developing some chest tightness and wheezing after a bout of bronchitis. She has been evaluated in the ER. She was given medication including Symbicort. She has been using it daily. The medication has been helpful. However, family is have been concerned because she is still having some degree of wheezing during the daytime. She did have a follow-up with primary care. She did have a chest x-ray demonstrating no acute disease. The patient did have a bedside spirometry apparently without any significant findings. However because her ongoing symptoms the patient is referred to Pulmonary. The patient does state that she does have animals in the household. There is a dog and a cat that sleeps in her bed. She also states that there is mold in the basement. Denies any exposure to any other fumes or toxins. Denies any nasal polyps. The patient does have history of eczema. 06/28/2021 the patient is here for a pulmonary follow-up visit. Overall the patient has been doing very well on the Symbicort. She does use the medication as prescribed. She does have symptoms of chest tightness and dyspnea. She does not have a rescue inhaler at this time. The patient did undergo pulmonary function studies which I personally reviewed demonstrating an obstructive physiology consistent mild COPD. The patient will benefit from additional albuterol therapies and she does respond very well to the bronchodilators. In the office the patient was given albuterol treatments any did help her symptoms. Therefore she will take a nebulizer with her and will provide her with albuterol so she can use at home. In the meantime she continues with the allergy therapy. soon 02/19/2022 the patient is here for a pulmonary follow-up visit. Overall the patient has been doing well. She did get her nebulizer. However, for some reason the albuterol was not covered. She did not call the office however. Therefore, she had not been able to use her nebulizer. She still has a rescue inhaler that she can use as needed. Otherwise she has been doing well. Still having some dyspnea on exertion. We did review her last chest x-ray that was back in October 2020 demonstrating no acute disease. Will continue with current respiratory therapy. I will have another prescription sent to the pharmacy for the albuterol and will have a nurse follow-up with it. 03/31/2023 the patient is here for a pulmonary follow-up visit. Overall the patient continues to do well. She has been losing weight after her orthopedic surgery. She is going to be starting going to the [facility] and using a recumbent bike. Overall she is motivated. As far as her asthma seems to be in good control. Her PFTs were done back in 2021 demonstrating mild obstruction and a last chest x-ray was on 2020 demonstrating no acute disease. The patient has been using Symbicort but now she is as needed. She continues with a low-sodium diet. The patient will continue with current respiratory therapy. Plan to follow-up in a year's time with PFTs and an x-ray. If the patient develops any worsening symptoms prior to that she will call for an earlier assessment. FORMERLY [facility], [facility] Medical History (Updated 03/31/23 @ 11:28 by Reynold Aden MD) Asthma-COPD overlap syndrome COVID-19 vaccine series completed Bilateral lower extremity edema Eosinophilia Asthma History of positive PPD Hypothyroid GERD (gastroesophageal reflux disease) History of anxiety Elevated cholesterol Surgical History Hx of cataract extraction History of total replacement of right hip Hx of hysterectomy Hx of cholecystectomy Social History Are you a primary career guidance counselor to a significant other at home: No Do you presently have visiting nurse or other home services: No Patient Tobacco Use Status: Former Tobacco user Quit Date: age 56 Tobacco use type: Cigarette Years Smoked: 40 Advance Directives Date on File: 07/12/15 Review of Systems Const Denies night sweats ENT Denies change in voice, Denies lip swelling, Denies mouth pain, Reports nasal congestion, Reports nasal discharge and Denies tongue swelling Card Denies chest pain and Reports dyspnea on exertion Resp Reports cough and Reports dyspnea on exertion GI Denies abdominal pain Musc Denies no additional complaints Neuro Denies Neuro-related abnormal movements Psych Denies no additional complaints Ian/Lymph Denies easy bleeding and Denies lymphadenopathy Aller/Immun Denies lip swelling and Denies tongue swelling Physical Exam Vital Signs: Last Vital Signs Pulse 101 H 03/31/23 11:18 BP 111/58 L 03/31/23 11:18 Pulse Ox 95 03/31/23 11:18 Oxygen Delivery Method Room Air 03/31/23 11:18 Const General: alert Neck Neck: Yes normal visual inspection, Yes full ROM and Yes no lymphadenopathy Chest Chest palpation & inspection: normal inspection of the chest Resp Auscultation: no wheezes and diminished lung sounds Cardio Rate: regular rate Rhythm: regular rhythm Heart sounds: S1 normal heart sound present and S2 normal heart sound present GI Palpation (GI): Soft to palpation and nontender Auscultation: normal bowel sounds Skin General skin exam: rashes and/or lesions noted Extrem General: No clubbing, No cyanosis and Yes edema Immunizations pneumoc 20-ketan conj-dip cr(PF) 0.5 mL IM syringe Performing Provider: Reynold Aden MD [place] [facility] Administered by: Landy Martinez LPN on 03/31/23 11:42 Dose Route Admin Location Dispensed Lot Number Expiration Date NDC Dental Intern 0.5 mL IM Right Deltoid 0.5 mL [id number] 04/01/24 6130-5516-89 Lightbox/Modern Message VIS Given Date VIS Provided VIS Publication Date 03/31/23 Single Vaccine 22 Eligibility Eligibility Date Funding Source Not [facility] Eligible 03/31/23 Private Assessment & Plan Assessment & Plan (1) Asthma: Code(s): J45.909 - Unspecified asthma, uncomplicated Qualifiers: Asthma complication type: uncomplicated Asthma persistence: persistent Asthma severity: moderate Qualified Code(s): J45.40 - Moderate persistent asthma, uncomplicated (2) Eosinophilia: Code(s): D72.10 - Eosinophilia, unspecified Qualifiers: Eosinophilia type: unspecified eosinophilia Qualified Code(s): D72.10 - Eosinophilia, unspecified (3) Asthma-COPD overlap syndrome: Code(s): J44.9 - Chronic obstructive pulmonary disease, unspecified Plan Continue Symbicort Short-acting beta agonist as needed nebulizer continue singular at night low-sodium diet PFTs/CXR in 1 yr follow-up 12 months Orders: Orders XR chest 2V 11 Months J45.40 - Moderate persistent asthma, uncomplicated Pneumococcal 20 Immunization Today Z23 - Encounter for immunization PFT pulmonary function test 11 Months J45.40 - Moderate persistent asthma, uncomplicated Coding Level of Care Code Est Pt Level 4 (65737) Diagnoses Moderate persistent asthma without complication J45.40 Asthma complication type: uncomplicated Asthma persistence: persistent Asthma severity: moderate Eosinophilia, unspecified type D72.10 Eosinophilia type: unspecified eosinophilia Asthma-COPD overlap syndrome J44.9 Time Spent (min) 16
== END 2023-03-31 11:39 | disposition home or self-care (01) ==
PROVIDERS: PCP Nurse Practitioner Family; Visit Provider Hospitalist
DX: J45.40 Moderate persistent asthma, uncomplicated (principal); D72.10 Eosinophilia, unspecified; J44.9 Chronic obstructive pulmonary disease, unspecified
CPT/HCPCS: 99214

== ENCOUNTER → 2023-03-31 11:16 | Outpatient (BNVA) | payer MEDICARE, SELFPAY | PROVIDERS: PCP Nurse Practitioner Family; Visit Provider Hospitalist | DX: Z23 Encounter for immunization (principal); J45.40 Moderate persistent asthma, uncomplicated; D72.10 Eosinophilia, unspecified; J44.9 Chronic obstructive pulmonary disease, unspecified | CPT/HCPCS: 90471; 90677; 99212 ==

== ENCOUNTER 2023-05-12 14:43 | Outpatient (REF) | payer MEDICARE, SELFPAY ==
[2023-05-12 15:04] LABS: MANUAL DIFF FLAG NO
[2023-05-12 15:23] LABS: Basophils Absolute Auto 0.1 X10*3/uL (0.0-0.2); Basophils Percent Auto 0.7 % (0-2); Eosinophils Absolute Auto 0.3 X10*3/uL (0.0-0.4); Eosinophils Percent Auto 3.6 % (0-4); Hematocrit 38.7 % (37.0-47.0); Imm Gran Abs Auto 0.04 X10*3/uL (0.00-0.03); Imm Gran Pct Auto 0.5 % (0.0-0.4); Lymphocytes Absolute Auto 2.3 X10*3/uL (1.2-4.9); Lymphocytes Percent Auto 26.6 % (20-40); Mean Corpuscular Volume 90.4 fL (80.0-98.0); Mean Platelet Volume 10.2 fL (9.4-12.3); Monocytes Absolute Auto 0.4 X10*3/uL (0.1-1.2); Monocytes Percent Auto 4.1 % (2-11); Neutrophils Absolute Auto 5.6 x10*3/uL (2.0-8.3); Neutrophils Percent Auto 64.5 % (45-73); Platelet Count 257 X10*3/uL (160-400); Red Blood Count 4.28 X10*6/uL (4.20-5.50); Red Cell Distribution Width 13.6 % (11.0-16.0); White Blood Count 8.7 X10*3/uL (4.8-10.8)
[2023-05-12 15:54] LABS: Cholesterol 185 mg/dL (<200); HDL Cholesterol 59 mg/dL (>40); LDL Cholesterol Calculated 79 mg/dL (<100); Triglycerides 239 mg/dL (<150)
[2023-05-12 15:59] LABS: Alanine Aminotransferase 9 U/L (0-31); Albumin Level 3.9 g/dL (3.5-5.0); Alkaline Phosphatase 98 U/L (39-117); Anion Gap 11 (12-20); Aspartate Amino Transferase 14 U/L (5-31); Bilirubin Total 0.2 mg/dL (0.0-1.0); Blood Urea Nitrogen 17 mg/dL (9-16); Calcium 9.4 mg/dL (8.4-10.2); Carbon Dioxide 29 mmol/L (22-29); Chloride 108 mmol/L (96-108); Estimated Glomerular Filt Rate > 60; Glucose Random 133 mg/dL (60-115); Potassium 4.8 mmol/L (3.3-5.1); Sodium 143 mmol/L (135-145); Total Protein 6.6 g/dL (6.5-8.0)
[2023-05-12 16:15] LABS: TSH reflex Free T4 0.23 uIU/mL (0.32-4.0)
[2023-05-12 17:26] LABS: Free T4 (Free Thyroxine) 1.04 ng/dL (0.71-1.85)
[2023-05-12 17:41] LABS: Reflex LDLD? No
== END 2023-05-12 14:44 | disposition home or self-care (01) ==
LOC: HO.LAB 14:43
PROVIDERS: Visit Provider Internal Medicine
DX: Z00.00 Encounter for general adult medical examination without abnormal findings (principal); Z20.2 Contact with and (suspected) exposure to infections with a predominantly sexual mode of transmission
CPT/HCPCS: 36415; 80053; 80061; 84439; 84443; 85025

== ENCOUNTER 2023-12-17 12:53 | Outpatient (REF) | payer MEDICARE, SELFPAY ==
[2023-12-17 14:58] LABS: TSH reflex Free T4 0.87 uIU/mL (0.32-4.0)
== END 2023-12-17 12:54 | disposition home or self-care (01) ==
LOC: HO.LAB 12:53
PROVIDERS: PCP Internal Medicine; Visit Provider Internal Medicine
DX: E03.9 Hypothyroidism, unspecified (principal)
CPT/HCPCS: 36415; 84443

== ENCOUNTER 2024-03-23 09:54 | Outpatient (REF) | payer MEDICARE, SELFPAY ==
--- NOTE | 2024-03-23 11:07 | PFT_ITS ---
Flows: FEV1: 117 % of predicted at 2.28 L FVC: 132 % of predicted at 3.35 L FEV1/FVC: 68 % Bronchodilator response: Present Volumes: Total lung capacity: 101 % of predicted at 4.77 L Residual volume: 78 % of predicted at 1.58 L Slow vital capacity: 121 % of predicted at 3.19 L Expiratory reserve volume: 48 % of predicted at 0.31 L Diffusion capacity: Normal Impression: Mild obstructive ventilatory defect with positive bronchodilator response. Decreased expiratory reserve volume suggests extrathoracic restriction likely secondary to abdominal obesity. MTDD
[2024-03-23 11:18] VITALS: PULSE 100; RESP 16; O2SAT 93
== END 2024-03-23 09:55 | disposition home or self-care (01) ==
LOC: HO.RESP 09:54
PROVIDERS: Visit Provider Hospitalist
DX: J45.40 Moderate persistent asthma, uncomplicated (principal)
CPT/HCPCS: 94010; 94640; 94727; 94729

== ENCOUNTER → 2024-03-23 11:07 | Outpatient (BNV) | payer MEDICARE, SELFPAY | PROVIDERS: Visit Provider Internal Medicine Pulmonary Disease | DX: J45.40 Moderate persistent asthma, uncomplicated (principal) | CPT/HCPCS: 94060; 94727; 94729 ==

== ENCOUNTER 2024-12-21 13:12 | Outpatient (AMB) | payer MEDICARE, SELFPAY ==
[2024-12-21 13:13] VITALS: BP 110/68; PULSE 96; O2SAT 94; BMI 37.5
--- NOTE | 2024-12-21 13:13 | A.OFFVIS_ITS ---
Vital Signs 12/21/24 13:13 Height 5 ft 3 in Weight 211 lb 10.3 oz BMI 37.5 BP 110/68 Blood Pressure Location Lt brachial Pulse 96 Pulse Source Pulse Oximeter Pulse Oximetry (%) 94 Oxygen Delivery Method Room Air Intake Visit Reasons: asthma Internet Sourcer Required: No Accompanied by: Self / Same As Patient Allergies erythromycin base Allergy (Intermediate, Verified 12/21/24 13:18) swelling, itching Penicillins Allergy (Intermediate, Verified 12/21/24 13:18) itching/swelling/rash nickel Allergy (Verified 12/21/24 13:18) Unknown HPI Comments Details: The patient is a 79-year-old woman with the family history of asthma in addition to eczema who apparently the last few months she started developing some chest tightness and wheezing after a bout of bronchitis. She has been evaluated in the ER. She was given medication including Symbicort. She has been using it daily. The medication has been helpful. However, family is have been concerned because she is still having some degree of wheezing during the daytime. She did have a follow-up with primary care. She did have a chest x-ray demonstrating no acute disease. The patient did have a bedside spirometry apparently without any significant findings. However because her ongoing symptoms the patient is referred to Pulmonary. The patient does state that she does have animals in the household. There is a dog and a cat that sleeps in her bed. She also states that there is mold in the basement. Denies any exposure to any other fumes or toxins. Denies any nasal polyps. The patient does have history of eczema. 06/28/2021 the patient is here for a pulmonary follow-up visit. Overall the patient has been doing very well on the Symbicort. She does use the medication as prescribed. She does have symptoms of chest tightness and dyspnea. She does not have a rescue inhaler at this time. The patient did undergo pulmonary fu nction studies which I personally reviewed demonstrating an obstructive physiology consistent mild COPD. The patient will benefit from additional albuterol therapies and she does respond very well to the bronchodilators. In the office the patient was given albuterol treatments any did help her symptoms. Therefore she will take a nebulizer with her and will provide her with albuterol so she can use at home. In the meantime she continues with the allergy therapy. soon 02/19/2022 the patient is here for a pulmonary follow-up visit. Overall the patient has been doing well. She did get her nebulizer. However, for some reason the albuterol was not covered. She did not call the office however. Therefore, she had not been able to use her nebulizer. She still has a rescue inhaler that she can use as needed. Otherwise she has been doing well. Still having some dyspnea on exertion. We did review her last chest x-ray that was back in October 2020 demonstrating no acute disease. Will continue with current respiratory therapy. I will have another prescription sent to the pharmacy for the albuterol and will have a nurse follow-up with it. 03/31/2023 the patient is here for a pulmonary follow-up visit. Overall the patient continues to do well. She has been losing weight after her orthopedic surgery. She is going to be starting going to the [facility] and using a recumbent bike. Overall she is motivated. As far as her asthma seems to be in good control. Her PFTs were done back in 2021 demonstrating mild obstruction and a last chest x-ray was on 2020 demonstrating no acute disease. The patient has been using Symbicort but now she is as needed. She continues with a low-sodium diet. The patient will continue with current respiratory therapy. Plan to follow-up in a year's time with PFTs and an x-ray. If the patient develops any worsening symptoms prior to that she will call for an earlier assessment. 12/21/2024 the patient is here for a pulmonary follow-up visit. Overall she is doing okay although she complains of increasing dyspnea on exertion. She has been on the Symbicort. She no longer has been taking the Singulair since she could not get it refilled. She has noticed that with the heat in the humidity she has had a hard time with the breathing. More shortness of breath with minimal activity. Moderate severity. She does have wheezing on exam. The p atient did have PFTs back in 2023 which we personally reviewed. Appears that she does have a mild obstruction consistent with COPD. Will go ahead and optimize her respiratory medicines by switching her from Symbicort to Breztri. She also will restart Singulair. Will plan to follow-up in the fall to see how she is responding to the therapy. If she has any issues prior to the appointment she can always call for further recommendations. [facility] Medical History (Updated 03/31/23 @ 11:28 by Reynold Aden MD) Asthma-COPD overlap syndrome COVID-19 vaccine series completed Bilateral lower extremity edema Eosinophilia Asthma History of positive PPD Hypothyroid GERD (gastroesophageal reflux disease) History of anxiety Elevated cholesterol Surgical History Hx of cataract extraction History of total replacement of right hip Hx of hysterectomy Hx of cholecystectomy Social History Are you a primary patient care nursing assistant to a significant other at home: No Do you presently have visiting nurse or other home services: No Patient Tobacco Use Status: Former Tobacco user Tobacco use type: Cigarette Years Smoked: 40 Advance Directives Date on File: 07/12/15 Review of Systems Const Denies night sweats ENT Denies change in voice, Denies lip swelling, Denies mouth pain, Reports nasal congestion, Reports nasal discharge and Denies tongue swelling Card Denies chest pain and Reports dyspnea on exertion Resp Reports cough, Reports dyspnea on exertion and Reports wheezing GI Denies abdominal pain Musc Denies no additional complaints Neuro Denies Neuro-related abnormal movements Psych Denies no additional complaints Ian/Lymph Denies easy bleeding and Denies lymphadenopathy Aller/Immun Denies lip swelling, Denies tongue swelling and Reports wheezing Physical Exam Vital Signs: Last Vital Signs Pulse 96 12/21/24 13:13 BP 110/68 12/21/24 13:13 Pulse Ox 94 12/21/24 13:13 Oxygen Delivery Method Room Air 12/21/24 13:13 BMI result Body Mass Index 37.5 Const General: alert Neck Neck: Yes normal visual inspection, Yes full ROM and Yes no lymphadenopathy Chest Chest palpation & inspection: normal inspection of the chest Resp Effort & Inspection: prolonged expiratory phase Auscultation: wheezes and diminished lung sounds Cardio Rate: regular rate Rhythm: regular rhythm Heart sounds: S1 normal heart sound present and S2 normal heart sound present GI Palpation (GI): Soft to palpation and nontender Auscultation: normal bowel sounds Skin General skin exam: rashes and/or lesions noted Extrem General: No clubbing, No cyanosis and Yes edema Assessment & Plan Assessment & Plan (1) Asthma: Code(s): J45.909 - Unspecified asthma, uncomplicated Category: Medical Qualifiers: Asthma complication type: uncomplicated Asthma persistence: persistent Asthma severity: moderate Qualified Code(s): J45.40 - Moderate persistent asthma, uncomplicated (2) Eosinophilia: Code(s): D72.10 - Eosinophilia, unspecified Category: Medical Qualifiers: Eosinophilia type: unspecified eosinophilia Qualified Code(s): D72.10 - Eosinophilia, unspecified (3) Asthma-COPD overlap syndrome: Code(s): J44.9 - Chronic obstructive pulmonary disease, unspecified Category: Medical Plan stop Symbicort start Breztri BID Short-acting beta agonist as needed nebulizer continue singular at night low-sodium diet CXR follow-up 4 months Orders: Orders XR chest 2V Today J44.9 - Chronic obstructive pulmonary disease, unspecified Medications: New etgzsxzrfk-cwlowcny-tnwdfrqrxn 160-9-4.8 mcg/actuation (Breztri Aerosphere) 2 inhalations inhalation BID 10.7 grams 11RF albuterol sulfate 90 mcg/actuation (Ventolin HFA) 2 puffs inhalation QID PRN 18 grams 11RF shortness of breath or wheezing 30 days Refilled montelukast 10 mg PO BEDTIME 90 tabs 3RF J45.909 - Unspecified asthma, uncomplicated Coding Level of Care Code Est Pt Level 4 (98291) Diagnoses Moderate persistent asthma without complication J45.40 Asthma complication type: uncomplicated Asthma persistence: persistent Asthma severity: moderate Eosinophilia, unspecified type D72.10 Eosinophilia type: unspecified eosinophilia Asthma-COPD overlap syndrome J44.9 Time Spent (min) 17
--- OUTSIDE RECORDS SUMMARY | 2024-12-21 14:17 | XMS_ITS | Clinical Summary ---
Author Organization [address] [place] [address] Building Address [address] [place] [address] Phone Care Team Providers Care Merchandising Manager Name Role Phone Caleb Perkins MD Primary Care Provider Allergies Active Allergy Reactions Criticality Noted Date Comments Erythromycin 03/12/2016 Nickel 04/06/2024 Penicillins Other,Wheezing 08/23/2005 Medications acetaminophen (TYLENOL) 325 mg tablet Take 2 tablets (650 mg total) by mouth every 6 hours as needed. Active bisacodyL (DULCOLAX) 10 mg suppository Insert 1 suppository (10 mg total) into the rectum 1 (one) time each day if needed. Active omeprazole (PriLOSEC) [address] capsule Take 1 capsule (20 mg total) by mouth. Active multivitamin tablet Take 1 tablet by mouth. Active citalopram (CeleXA) 20 mg tablet Take 1 tablet (20 mg total) by mouth 1 (one) time each day. 90 tablet 3 05/19/20 24 Active budesonide-form oteroL (SYMBICORT) 160-4.5 mcg/actuation inhaler INHALE 2 INHALATIONS INTO THE LUNGS 2 TIMES A DAY 51 g 08/05/19 25 Active mometasone (ELOCON) 0.1 % ointment Apply a thin layer to the affected area nightly for two weeks, then MWF thereafter 30 g 3 08/18/19 25 Active levothyroxine (SYNTHROID, LEVOTHROID) 112 mcg tablet TAKE 1 TABLET BY MOUTH DAILY FOR 5 DAYS A WEEK 30 tablet 3 12/09/19 25 Active levothyroxine (SYNTHROID, LEVOTHROID) 112 mcg tablet Take one tablet daily five days a week 09/16/19 24 025 Discontinued Active Problems Problem Noted Date Diagnosed Date Anxiety 04/06/2024 Diverticulosis of colon 05/08/2022 Gastro-esophageal reflux dis ease with esophagitis, without bleeding 05/08/2022 Simple chronic bronchitis (CMS/[facility] V24, CMS/HCC V28) 10/31/2021 Lichen sclerosus 09/05/2020 Other insomnia 07/18/2019 PLMD (periodic limb movement disorder) 1 Sleep apnea 01/29/2011 Eczema 07/02/2007 Dysphagia 08/23/2005 Overview (04/06/2024): 05/2004 IMO update Hyperlipidemia 08/23/2005 Overview (04/06/2024): 10/11-mibi at duson negative for ischemia Assessment & Plan (05/19/2024 1:03 PM EST): -stable Hypothyroidism 08/23/2005 Assessment & Plan (05/19/2024 1:03 PM EST): -continue synthroid 112 mcg daily 5 days a week Orders: Lipid panel; Future CBC and differential; Future Comprehensive metabolic panel; Future Thyroid stimulating hormone; Future Immunizations Name Administration Dates Next Due Influenza Quadravalent, 0.5m l (Fluad) 65yo and older 05/07/2021 Influenza Quadravalent, 0.5m l (Fluzone High-dose) 65yo and older 05/12/2023,03/27/2022,04/03/2017 Influenza trivalent, with pr eservative (Fluzone; Afluria) 6mo and older 03/02/2021 Shoebox SARS-CoV-2 COVID-19, mRNA, LNP-S, preservative free 01/03/2021 Td Tetanus diptheria, preser vative free (Tenivac) 7yo and older 05/12/2023 Tdap Tetanus diptheria acell ular pertussis (Boostrix; Adacel) 7yo and older 05/07/2004 Surgical History Surgery Date Site/Laterality Comments CHOLECYSTECTOMY PROCEDURE:CHOLECYSTECTOMY HYSTERECTOMY PROCEDURE:HYSTERECTOMY;COMMENT:1991 Medical History Medical History Date Comments Exposure to TB 1979 DX:Exposure to T B Anxiety DX:Anxiety GERD (gastroesophageal reflux disease) DX:GERD (gastroesophageal reflux disease) Hypothyroidism DX:Hypothyroidis m Hyperlipidemia DX:Hyperlipidemi a Family History Medical History Relation Name Comments No Known Problems Brother 1 Alcohol abuse Maternal Grandfather Cancer Maternal Grandfather Stroke Paternal Grandfather Asthma Sister 1 Asthma Sister 2 Relation Name Status Comments Brother 1 Alive Brother 2 Alive Father Maternal Grandfather Maternal Grandmother MA age mid 70 Mother Paternal Grandfather Paternal Grandmother ovarian cancer age 83 Sister 1 Alive Sister 2 Alive Sister 3 MS Social History Tobacco Use Types Packs/Day Years Used Date Smoking Tobacco: Former Cigarettes 0.5 40 0 10/24/1962 - 10/24/2002 Smokeless Tobacco: Never Alcohol Use Standard Drinks/Week Comments Yes 0 (1 standard drink = 0.6 oz pur e alcohol) rarely Comments No Sex and Gender Information Value Date Recorded Sex Assigned at Not on file Legal Sex Female 3:50 AM EST Gender Identity Not on file Sexual Orientation Not on file Obstetrics History Para Term AB IAB SAB Ectopic Multiple Livin g Live Births 1 1 Date Outcome GA Total Labor Labor/2nd/3rd Weight Sex Type Anes PTL Ariane A1 A5 Name Clin Para Last Filed Vital Signs Vital Sign Reading Time Taken Comments Blood Pressure 120/74 08/17/2024 1:05 PM EDT Pulse 77 08/17/2024 1:05 PM EDT Temperature - - Respiratory Rate 16 08/17/2024 1:05 PM EDT Oxygen Saturation 97% 05/19/2024 10:38 AM EST Inhaled Oxygen Concentration - - Weight 96.3 kg (212 lb 6.4 oz) 08/17/2024 1:05 P M EDT Height 160 cm (5' 3 ) 08/17/2024 1:05 PM EDT Body Mass Index 37.62 08/17/2024 1:05 PM EDT Plan of Treatment Health Maintenance Due Date Last Done Comments Zoster Vaccines (1 of 2) 1997 Hepatitis C Screening 05/09/2022 Osteoporosis Screening (Bone Density Screening) 05/09/2022 Social Influencers of Health Screening 05/09/2022 RSV Immunization Adult Patients (1 - 1-dose 75+ series) 2022 COVID-19 Vaccine ( season) 2024 06/21/2023, 05/09/2021, 01/03/2021, Additional history exists Depression Screening 06/02/2024 05/19/2024, 05/12/20 23 Influenza Vaccine (#1) 2025 , 03/27/2022, 05/07/2021, Additional history exists Falls Risk Assessment 05/19/2025 05/19/2024, 023 Medicare Annual Wellness Visit 05/19/2025 05/19/2024 Cholesterol Screening (Lipid Panel) 05/12/2028 05/12/2023 DTaP,Tdap,and Td Vaccines (3 - Td or Tdap) 05/12/2033 05/12/2023, 05/07/2004, 05/07/2004 Pneumococcal Vaccine: 50+ Years Completed 03/31/2023, 12/13/2014 HIB Vaccines Aged Out No longer eligi ble based on patient's age to complete this topic HPV Vaccines Aged Out No longer eligi ble based on patient's age to complete this topic Hepatitis A Vaccines Aged Out No long er eligible based on patient's age to complete this topic Hepatitis B Vaccines Aged Out No long er eligible based on patient's age to complete this topic IPV Vaccines Aged Out No longer eligi ble based on patient's age to complete this topic MMR Vaccines Aged Out No longer eligi ble based on patient's age to complete this topic Meningococcal ACWY Vaccine Aged Out N o longer eligible based on patient's age to complete this topic Meningococcal B Vaccine Aged Out No l onger eligible based on patient's age to complete this topic RSV Immunization Patients Under 20 months Aged Out No longer eligible based on patient's age to complete this topic Varicella Vaccines Aged Out No longer eligible based on patient's age to complete this topic Procedures Procedure Name Priority Date/Time Associated Diagnosis Comments DEPRESSION SCREENING Routine 05/12/2023 FALLS RISK ASSESSMENT Routine 05/12/2023 LIPID PANEL Routine 05/12/2023 from Last 3 Months or Most Recently Relevant to Health Maintenance Results * Falls Risk Assessment (05/12/2023) Falls Risk Assessment abstracted Historical Provider HEALTH MAINTENANCE Final Result * Depression Screening (05/12/2023) Pathologist [facility] [place] HM Depression Screening abstracted [facility] Provider HEALTH MAINTENANCE Final Result * Lipid panel (05/12/2023) Pathologist [facility] [place] Triglycerides 0 mg/dL Comment:no interpretation Cholesterol 0 mg/dL Comment:n interpretation HDL 0 mg/dL Comment:no interpretation LDL Cholesterol 0 mg/dL Comment:no interpretation Blood Venous blood specimen / Unknown [facility] Provider LAB BLOOD ORDERABLES Breanne l Result from Last 3 Months or Most Recently Relevant to Health Maintenance Insurance MEDICARE [facility] Care Teams Merchandising Manager Relationship Specialty Start Date End Date Caleb Perkins MD [address] [place] [address] PCP - General 06/09/23
--- OUTSIDE RECORDS SUMMARY | 2024-12-21 14:17 | XMS_ITS ---
Author Name [facility] Organization Unknown History of Medication Use Medication Directions Dispensed Refills Start Date End Date Stat us LORazepam (Ativan) 0.5 MG tablet Take 1 tablet (0.5 mg total) by mouth every night at bedtime as needed (insomnia). 12/23/2023 12/29/2023 active citalopram (CeleXA) 20 MG tablet TAKE 1 TABLET(20 MG) BY MOUTH DAILY 05/09/2023 active traMADol (ULTRAM) 50 MG tablet Take 50 mg by mouth every 6 (six) hours as needed for pain. 03/17/2023 05/09/2023 aborted budesonide-formotero l (Symbicort) 160-4.5 MCG/ACT inhaler Inhale 2 inhalations into the lungs 2 (two) times a day. 08/13/2022 active montelukast (SINGULAIR) 10 MG tablet Take 1 tablet (10 mg total) by mouth every night at bedtime. 08/12/2021 active omeprazole (PriLOSEC) 40 MG capsule Take 1 capsule (40 mg total) by mouth daily. 06/24/2021 12/23/2023 active acetaminophen (TYLENOL) 325 MG tablet Take 2 tablets (650 mg total) by mouth every 6 (six) hours as needed. active Multiple Vitamins-Calcium (Essential One Daily Multivit) TABS Take 1 tablet by mouth. active omeprazole (PriLOSEC) 20 MG capsule Take 1 capsule (20 mg total) by mouth. active Allergies Allergen Reaction Severity Comment Documented Date Source Statu s ERYTHROMYCIN 03/12/2016 [facility] active PENICILLINS OTHER (SEE COMMENTS) 08/23/2005 [facility] active NICKEL [facility] active Problems Problem Status Onset Date Problem Type Date of Resolution Source Gastro-esophageal reflux disease with esophagitis, without bleeding active 2022-05-08 ProblemAct [facility] Simple chronic bronchitis active 2021-10-31 ProblemAct [facility] Sleep apnea active 2011-01-29 ProblemAct [facility] Eczema active 2007-07-02 ProblemAct [facility] Screening for malignant neoplasm of colon active 2022-05-08 ProblemAct [facility] Hyperlipidemia active ProblemAct [facility] Hypothyroidism active ProblemAct [facility] Other insomnia active 2019-07-18 ProblemAct [facility] Anxiety active ProblemAct [facility] Lichen sclerosus active 2020-09-05 ProblemAct [facility] Dysphagia active 2005-08-23 ProblemAct [facility] Primary insomnia active EncounterDiagnosisAct [facility] PLMD (periodic limb movement disorder) active 2011-01-29 ProblemAct [facility] Diverticulosis of colon active 2022-05-08 ProblemAct [facility] Immunizations Vaccine Date Source Lot Number Status Influenza Quad (High Dose Fl uzone) 0.7mL >65Yrs (HD-IIV4) 05/12/2023 [facility] [id number] completed Td (Tenivac) 05/12/2023 [facility] [id number] completed Influenza Quad (Fluad) 0.5 m L >65Yrs (A&B ADJUVANTED) 05/07/2021 [facility] [id number] completed Influenza Trivalent Vaccine (IIV3) (inactive) 03/02/2021 [facility] completed Covid-19 (Pfizer) Dilution Required 01/03/2021 [facility] completed Covid-19 (Pfizer) Dilution Required 08/10/2020 [facility] [id number] completed Covid-19 (Pfizer) Dilution Required 07/20/2020 [facility] [id number] completed Tdap 05/07/2004 [facility] completed Encounters Encounter Type Encounter Reason Primary Diagnosis Location Date Ambulatory Hypothyroidism, unspecified Hypothyroidism, unspecified [facility] 05/19/2024 Care Team Organization Name Specialty Phone Email Start Date End [place] [facility] [place] [facility] 05/19/2024
--- OUTSIDE RECORDS SUMMARY | 2024-12-21 14:17 | XMS_ITS | Patient Health Record ---
Author Organization [facility] Address [address] [place] [id number] Care Team Providers Care Top Waddy Name Role Phone Caleb Perkins M.D. Primary Care Provider Ronda Refugio Wick Unavailable [phone] Allergies Allergen (clinical drug ingredient) Drug/Non Drug Allergy documented on EMR Reaction Allergy Type Onset Date Status Penicillin Itching Drug Allergy Active erythromycin Erythromycin Unknown Drug Allergy A ctive nickel Nickel Unknown Allergy Active Reason For Referral No Information Medications Medication SIG (Take, Route, Frequency, Duration) Notes Start Date End Date Status Citalopram Hydrobromide 20 MG Oral for 90 Active Levothyroxine Sodium 125 MCG TAKE 1 TABLET BY MOUTH DAILY Oral for 30 Active Symbicort 160-4.5 MCG/ACT Inhalation for 30 Active Tylenol 325 MG 1 tablet as needed Orally as needed Not-Taking Vitamin B Complex Ac tive Immunizations Vaccine Route Administration Date Status Comme nts Influenza Unknown 03/02/2021 Administered Social History Tobacco Use: Social History Observation Description Date Details (start date - stop date) Former Smoker NA - NA Tobacco Use/Smoking Question Answer Notes Patient is a former smoker How long has it been since you last smoked? > 10 years Alcohol Screen Question Answer Notes Did you have a drink contain ing alcohol in the past year? Yes How often did you have a dri nk containing alcohol in the past year? Never (0 point) How many drinks did you have on a typical day when you were drinking in the past year? 1 or 2 drinks (0 point) How often did you have 6 or more drinks on one occasion in the past year? Never (0 point) Points 0 Interpretation Negative Section Notes: Nonsmoker; no sig. alcohol Nonsmoker; no sig. alcohol Problems Problem Type SNOMED Code ICD Code Onset Dates Problem Status W/U Status Risk Notes Problem Colon cancer screening (508438930) Colon cancer screening (Z12.11) Active confirmed Problem 808009457 Encounter for screening for malignant neoplasm of colon (Z12.11) Active confirmed Problem Dysphagia (78139532) Dysphagia (R13.10) Active confirmed Problem Esophageal stricture (57000757) Esophageal stricture (K22.2) Active confirmed Problem Hiatal hernia (65931442) Hiatal hernia (K44.9) Active confirmed Problem Diverticulosis of colon (055432452) Diverticulosis of colon (K57.30) Active confirmed Problem Serrated polyp of colon (955047279) Serrated polyp of colon (K63.5) Active confirmed Problem 451147056 Gastroesophageal reflux disease, unspecified whether esophagitis present (K21.9) Active confirmed Problem Gastroesophageal reflux disease with esophagitis (disorder) (284005494) Gastro-esophageal reflux disease with esophagitis, without bleeding (K21.00) Active confirmed Problem 12559959 Esophageal dysphagia (R13.19) Active confirmed Vital Signs Blood pressure diastolic 11 mm Hg 09/14/2024 Height 63 in 09/14/2024 Blood pressure systolic 111 mm Hg 09/14/2024 Weight 213 lbs 09/14/2024 BMI 37.73 kg/m2 09/14/2024 Procedures Procedure Date Ordered Date Performed Result Body Sit e COLONOSCOPY 09/14/2024 N/A Encounters Encounter Location Date Provider Diagnosis [facility] [address] [place] [address] 09/14/2024 Refugio Mix Esophageal stricture K22.2 ; Hiatal hernia K44.9 ; Serrated polyp of colon K63.5 and Colon cancer screening Z12.11 Assessments Encounter Date Diagnosis (ICD Code) Assessment Notes Treatment Notes Treatment Clinical Notes Section Notes 09/14/2024 Esophageal stricture (ICD-10 - K22.2) Continue omeprazole daily. Call me if the swallowing worsens again and we can do another upper endoscopy with dilation if need be. Overall, Sandra appears to be doing well. Given the findings on the colonoscopy 3 years ago with a poor prep, I did recommend a follow-up colonoscopy with a better prep so as to rule out any polyps that were not seen at that time. She will have a 2-day prep at home that I did review with her today. We did review the rationale for the colonoscopy, including risks of bleeding and perforation. The procedure will be done with monitored anesthesia care. Full consent has been obtained for this, including risks of bleeding and perforation. It seems that her previous issues with swallowing are much improved at the present time. I did advise her of the findings of the stricture. I did advise her that I would recommend she stay on omeprazole daily rather than just as needed so as to minimize the risk of the stricture recurring and to also eliminate any acid reflux that might be causing esophageal spasm and dysphagia on that basis. I did advise her that she should let me know if the swallowing becomes problematic again and we could then always repeat the endoscopy with dilation if need be. Sandra was comfortable with this plan. Thank you again for allowing me to participate in Sandra's care. I shall continue to keep you advised of her progress.. 09/14/2024 Hiatal hernia (ICD-10 - K44.9) Overall, Sandra appears to be doing well. Given the findings on the colonoscopy 3 years ago with a poor prep, I did recommend a follow-up colonoscopy with a better prep so as to rule out any polyps that were not seen at that time. She will have a 2-day prep at home that I did review with her today. We did review the rationale for the colonoscopy, including risks of bleeding and perforation. The procedure will be done with monitored anesthesia care. Full consent has been obtained for this, including risks of bleeding and perforation. It seems that her previous issues with swallowing are much improved at the present time. I did advise her of the findings of the stricture. I did advise her that I would recommend she stay on omeprazole daily rather than just as needed so as to minimize the risk of the stricture recurring and to also eliminate any acid reflux that might be causing esophageal spasm and dysphagia on that basis. I did advise her that she should let me know if the swallowing becomes problematic again and we could then always repeat the endoscopy with dilation if need be. Sandra was comfortable with this plan. Thank you again for allowing me to participate in Sandra's care. I shall continue to keep you advised of her progress.. 09/14/2024 Serrated polyp of colon (ICD-10 - K63.5) Overall, Sandra appears to be doing well. Given the findings on the colonoscopy 3 years ago with a poor prep, I did recommend a follow-up colonoscopy with a better prep so as to rule out any polyps that were not seen at that time. She will have a 2-day prep at home that I did review with her today. We did review the rationale for the colonoscopy, including risks of bleeding and perforation. The procedure will be done with monitored anesthesia care. Full consent has been obtained for this, including risks of bleeding and perforation. It seems that her previous issues with swallowing are much improved at the present time. I did advise her of the findings of the stricture. I did advise her that I would recommend she stay on omeprazole daily rather than just as needed so as to minimize the risk of the stricture recurring and to also eliminate any acid reflux that might be causing esophageal spasm and dysphagia on that basis. I did advise her that she should let me know if the swallowing becomes problematic again and we could then always repeat the endoscopy with dilation if need be. Sandra was comfortable with this plan. Thank you again for allowing me to participate in Sandra's care. I shall continue to keep you advised of her progress.. 09/14/2024 Colon cancer screening (ICD-10 - Z12.11) Overall, Sandra appears to be doing well. Given the findings on the colonoscopy 3 years ago with a poor prep, I did recommend a follow-up colonoscopy with a better prep so as to rule out any polyps that were not seen at that time. She will have a 2-day prep at home that I did review with her today. We did review the rationale for the colonoscopy, including risks of bleeding and perforation. The procedure will be done with monitored anesthesia care. Full consent has been obtained for this, including risks of bleeding and perforation. It seems that her previous issues with swallowing are much improved at the present time. I did advise her of the findings of the stricture. I did advise her that I would recommend she stay on omeprazole daily rather than just as needed so as to minimize the risk of the stricture recurring and to also eliminate any acid reflux that might be causing esophageal spasm and dysphagia on that basis. I did advise her that she should let me know if the swallowing becomes problematic again and we could then always repeat the endoscopy with dilation if need be. Sandra was comfortable with this plan. Thank you again for allowing me to participate in Sandra's care. I shall continue to keep you advised of her progress.. Plan Of Treatment Pending Test Test Name Order Date COLONOSCOPY 09/14/2024 Future Test Test Name Order Date UPPER GI ENDOSCOPY BALLOOON DILATION OF ESOPH 05/31/2021 COLONOSCOPY 05/31/2021 Next Appt Details Provider Name:Refugio Mix , 03/07/2025 10:30:00 AM, [address] [place] [address] , [place], [place], [id number], Insurance Providers Payer Name Payer Address Payer Phone Subscriber Number Group Number Insured Name Patient Relationship to Insured Coverage Start Date Coverage End Date MEDICARE OF ID [address] [place] [address] [id number] SANDRA HSIEH Self - patient is the insured [employer] ATT[employer] CLAIMS [address] [place] [address] [id number] SANDRA HSIEH Self - patient is the insured Medical (General) History Medical History History ICD Code Denies [place],DM,CVA,renal disease GERD Hypothyroidism Hyperlipidemia Anxiety Asthma-seeing Dr. Aden Lichen sclerosis of perineal area--sees a [employer] for periodic biopsies Screening colonoscopy 06/2021 with a sessile serrated cecal polyp, but poor prep Upper endoscopy in June 03 revealed a moderate-sized hiatal hernia and an esophageal stricture that was dilated up to a 19 mm balloon with good effect. There was no esophagitis nor any Tripp's esophagus. Surgical History Surgery Date(Month/Year) Cataracts Hysterectomy with BSO 1991 Cholecystectomy 1996 Right hip replacement/ left hip replacem ent 2019
--- OUTSIDE RECORDS SUMMARY | 2024-12-21 14:17 | XMS_ITS | Clinical Summary ---
Author Organization Formerly [facility] Address [address] [place] [address] Phone Care Team Providers Care Pot Sander Name Role Phone Linda Bell NP Primary Care Provider + [phone] Matheus Lopez MD Unavailable [phone] Social History Tobacco Use Types Packs/Day Years Used Date Smoking Tobacco: Never Assessed Education Answer Date Recorded Are you interested in more education? Not on josie e 01/24/2023 Are you concerned about learning? Not on file 01/24/2023 No 01/24/2023 No 01/24/2023 Digital Access Answer Date Recorded No 01/24/2023 No 01/24/2023 Reliable internet access at home? Not on file 01/24/2023 Device with a working camera? Not on file Comments Unknown Sex and Gender Information Value Date Recorded Sex Assigned at Not on file Legal Sex Female 3:13 PM EDT Gender Identity Not on file Sexual Orientation Not on file Plan of Treatment Health Maintenance Due Date Last Done Comments LIPID PANEL 1945 DEPRESSION SCREENING 1959 SMOKING Hx and SMOKELESS TOB ACCO SCREENING 1960 HEPATITIS C SCREENING 1965 PNEUMOCOCCAL VACCINES (50+ y ears) (1 of 1 - PCV) 1997 ZOSTER VACCINES (1 of 2) 1997 OSTEOPOROSIS SCREENING INITI AL (ONE-TIME) 2012 Adult Td,Tdap Booster 05/07/2014 05/07/2004 RSV VACCINE (1 - 1-dose 75+ series) 2022 COVID-19 VACCINE ( - 2023-2 5 season) 2024 HEPATITIS A VACCINES Aged Out No long er eligible based on patient's age to complete this topic HIB VACCINES Aged Out No longer eligi ble based on patient's age to complete this topic MENINGOCOCCAL VACCINES (ACWY) Aged Out No longer eligible based on patient's age to complete this topic MENINGOCOCCAL VACCINES (B) Aged Out N o longer eligible based on patient's age to complete this topic Medical Devices Not on file Insurance [place] [id number] [employer] MEDEX SUPPLEMENT MEDICARE PART A & B [employer] MED[employer] SUPPLEMENT MEDICARE PART A & B [employer] MEDEX SUPPLEMENT MEDICARE PART A & B [employer] MEDEX SUPPLEMENT MEDICARE PART A & B [employer] MEDEX SUPPLEMENT MEDICARE PART A & B [employer] MEDEX SUPPLEMENT Care Teams Pot Sander Relationship Specialty Start Date End Date Linda Bell NP [address] [place] [address] [place] [address] [email or web address] PCP - General Nurse Practitioner 01/23/23 Matheus Lopez MD [address] [place] [address] [place] [address] Orthopedic Surgery 01/27/23 Additional Source Comments The information contained in this document represents components of the legal health record. It is not the complete legal health record.[facility]ly [facility]
--- OUTSIDE RECORDS SUMMARY | 2024-12-21 14:17 | XMS_ITS | Data Portability ---
Author Organization [place] - [facility] [place], [facility] Address [address] [place] [address] Care Team Providers Care Club Manager Name Role Phone KELVIN GOMEZ Primary Care Provider Assessment Encounter Date Assessment Date Assessment LastModified [...] patient. Fortunately she does not have severe imvd-hd-dftl osteoarthritis. I do not think she is a surgical candidate. I do think a course of nonoperative treatment including activity modification, rest, ice and elevation will help her symptoms. She should continue to use occasional shpc-vvd-zisbnyx pain medication and try to back off [...] with this appointment. This visit is a axzq-tu-zoph visit during the COVID-19 pandemic. Based on [...] all services provided today in accordance with [facility] and CDC Guidelines. [email or web address] Not available 11/30/2019 [...] Recorded Time 10/21/19 19 Orthopaedic Surgery completed [facility] [place] 11/15/2019 13:33:27 Hysterectomy/bladde r repair completed [facility] [place] 11/15/2019 13:33:40 cholecystectomy completed [facility] [place] 11/15/2019 13:33:50 Imaging Results None recorded. Procedure Notes None recorded. Medical Equipment None Reported. Allergies Allergen ID Allergen Name Allergen Category Reaction Reaction Severity Criticality Documentation Date Start Date Code Code System Note Provider Name and Address Organization Details Recorded Time 621667 Product containin g penicilli n (product) medicatio n Not available Not available Not available 11/15/2019 88181 8001 SNOMED [facility] 0 13:31:12 Medications Name Sig Start Date [...] Updated DateTime 11/15/2019 160.02 cm 37.2 kg/m2 38486.4 g May Chance [facility] [place] 11/15/2019 13:30:56 Social History Question Answer Notes LastModified by [employer] Details LastModified Time Tobacco Smoking Status Former Smoker 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 No Information not available 11/15/2019 What Is Your Level Of Caffeine Consumption? Moderate Information not available 11/15/2019 Have You Had Cortisone? Yes Information not available 11/15/2019 Work Related Injury? No Information not available 11/15/2019 Sex: Unknown Functional Status Question Answer Note LastModified by [employer] Details LastModified Time What is your level of alcohol consumption? 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 Family History Relationship Description Onset Age of this Age Resolved Age Notes LastModified by Organization Details LastModified Time Father No current problems or disability [email or web address] Not available 11/14 13:32:29 Mother No current problems or disability [email or web address] Not available 11/14 13:32:29 Medical History Condition Response HIV or AIDS N High Blood Pressure N Irregular Heartbeat N MRSA N Any Other Significant Medical Issues N Weight Gain / Loss N Hearing Loss N Angina, Heart Failure or Attack N Night Sweats N Seizures / Epilepsy N Osteoarthritis / Rheumatoid arthritis / Other N Cancer N Stroke N Ulcer / Stomach Bleeding / Indigestion N Visual Loss or Glaucoma N Blood Clots / Phlebitis N Heart Problems N Depression or Anxiety Y Emphysema / Chronic Bronchitis N Reaction to General/Local Anesthesia N Hepatitis / Jaundice N Kidney / Bladder Infections N Diabetes N Bleeding Disorder N Chemical Dependency / Alcoholism N Psoriasis / Skin Rash N Thyroid Disorder Y Heart Disease N Asthma / Shortness of Breath / Sleep Self Propelled 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 Obstetrics History GPAL:G 0 P 0 0 0 0 Past Encounters Encounter ID Performer Location Encounter Start Date Encounter Closed Date Diagnosis/Indication Diagnosis SNOMED-CT Code Diagnosis ICD10 Code Diagnosis Note [id number] TYRESE PERDOMO MD [address] [address] 11/15/2019 12:38:23 11/18/2019 15:41:21 Pain in right knee [id number] 87341 M25.561 Acute worsening in right knee pain [...] ID Guarantor Name 11/10/2019 1 MEDICARE [place]: [employer] Sandra Y Alexis [id number] Sandra Alexis 11/19/2019 2 [facility] [id number] Sandra Y Alexis [id number] Sandra Alexis Notes Date Note Type [...] Primarily medial side. She has used occasional iraj-iuj-tzzxvdt pain medication secondary to the pain. It [...] SYSTEMS: As per HPI. TYRESE PERDOMO MD [address] [place] [address], [phone], [facility] 12/05/2019 19:52:08 OBGyn Episode No OBEpisode recorded.
--- OUTSIDE RECORDS SUMMARY | 2024-12-21 14:17 | XMS_ITS | Clinical Summary ---
Author Organization [facility] Address [address] [place] [address] Care Team Providers Care Machine Washer Name Role Phone Caleb Perkins MD Primary Care Provider Ronda vailable Allergies Active Allergy Reactions Criticality Noted Date Comments Erythromycin 03/12/2016 Nickel Penicillins Other (See Comments) 08/23/2005 Medications Medication Sig Dispensed Refills Start Date End Date Status montelukast (SINGULAIR) 10 MG tablet Take 1 tablet (10 mg total) by mouth every night at bedtime. 0 08/12/2021 Active budesonide-formotero l (Symbicort) 160-4.5 MCG/ACT inhalerIndications:M ild persistent asthma without complication Inhale 2 inhalations into the lungs 2 (two) times a day. 48 g 1 08/13/2022 Active levothyroxine (SYNTHROID) tablet 112 mcgIndications:Hypot hyroidism, unspecified type Take one tablet daily five days a week 30 tablet 11 09/16/2023 Active acetaminophen (TYLENOL) 325 MG tablet Take 2 tablets (650 mg total) by mouth every 6 (six) hours as needed. 0 Active bisacodyl (DULCOLAX) [address] 1 suppository (10 mg total) rectally daily as needed. 0 Active Multiple Vitamins-Calcium (Essential One Daily Multivit) TABS Take 1 tablet by mouth. 0 Active omeprazole (PriLOSEC) 20 MG capsule Take 1 capsule (20 mg total) by mouth. 0 Active citalopram (CeleXA) 20 MG tabletIndications:An xiety TAKE 1 TABLET(20 MG) BY MOUTH DAILY 90 tablet 0 02/13/2024 Active Active Problems Problem Noted Date Diagnosed Date Diverticulosis of colon 05/08/2022 Gastro-esophageal reflux dis ease with esophagitis, without bleeding 05/08/2022 Screening for malignant neoplasm of colon 2021 Simple chronic bronchitis 10/31/2021 Lichen sclerosus 09/05/2020 Other insomnia 07/18/2019 PLMD (periodic limb movement disorder) 1 Sleep apnea 01/29/2011 Eczema 07/02/2007 Dysphagia 08/23/2005 Overview: Overview: 05/2004 O update Anxiety Hypothyroidism Hyperlipidemia Resolved Problems Problem Noted Date Diagnosed Date Resolved Date Personal history of tobacco use, presenting hazards to health 08/23/2005 09/29/2020 Overview: Overview: quit 2 years ago Dysphagia 08/23/2005 09/29/2020 Overview: 05/2004 IMO update Hyperlipidemia 08/23/2005 09/29/2020 Overview: 10/11-mibi at [place] negative for ischemia GERD (gastroesophageal reflux disease) 05/08/2022 Immunizations Name Administration Dates Next Due Covid-19 (Pfizer) Dilution Required 01/03/2021,0 08/10/2020,07/20/2020 Influenza Quad (Fluad) 0.5 m L >65Yrs (AIIV4) 05/07/2021 Influenza Quad (High Dose Fl uzone) 0.7mL >65Yrs (HD-IIV4) 05/12/2023 Influenza Trivalent (Fluzone /Afluria) 5.0mL Multi-dose Vial 03/02/2021 Td (Tenivac) 05/12/2023 Tdap 05/07/2004 Family History Medical History Relation Name Comments No Sig Med Hx Brother 1 Alcohol abuse Maternal Grandfather Cancer Maternal Grandfather Stroke Paternal Grandfather Asthma Sister 2 Asthma Sister 3 Relation Name Status Comments Brother 1 Alive Brother 2 Alive Father Maternal Grandfather Maternal Grandmother ID age mid 70 Mother Paternal Grandfather Paternal Grandmother ovarian cancer age 83 Sister 1 MS Sister 2 Alive Sister 3 Alive Social History Tobacco Use Types Packs/Day Years Used Date Smoking Tobacco: Former Cigarettes 0.5 0 10/24/1962 - 10/24/2002 Smokeless Tobacco: Never Tobacco Cessation:Counseling Given: Not Answered Alcohol Use Standard Drinks/Week Comments Yes 0 (1 standard drink = 0.6 oz pur e alcohol) rare Sex and Gender Information Value Date Recorded Sex Assigned at Female 05/12/2023 12:54 PM EST Gender Identity Not on file Sexual Orientation Not on file Job Start Date Occupation Industry Not on file Not on file Not on file Last Filed Vital Signs Vital Sign Reading Time Taken Comments Blood Pressure 94/65 12/23/2023 2:33 PM EDT Pulse 82 12/23/2023 2:33 PM EDT Temperature 36.2 C (97.1 F) 12/23/2023 2:33 PM EDT Respiratory Rate 20 10/31/2021 10:09 AM EDT Oxygen Saturation 96% 12/23/2023 2:33 PM EDT Inhaled Oxygen Concentration - - Weight 94.1 kg (207 lb 6.4 oz) 12/23/2023 2:33 P M EDT Height 160 cm (5' 3 ) 10/31/2021 10:09 AM EDT Body Mass Index 36.74 10/31/2021 10:09 AM EDT Plan of Treatment Health Maintenance Due Date Last Done Comments Hepatitis C Screening 1945 Shingrix-Zoster Vaccine (1 of 2) 1997 RSV Adult > 60+ Yrs or (1 - 1-dose 75+ series) 2022 COVID-19 Vaccine ( season) 2024 01/03/2021, 08/10/2020, 07/20/2020 BMI Counseling 05/12/2024 05/12/2023, 11/30, 05/08/2022, Additional history exists Depression Screening 05/12/2024 05/12/2023, 05/12/2023, 05/08/2022, Additional history exists Fall Risk Assessment 05/12/2024 05/12/2023, 05/12/2023, 05/08/2022, Additional history exists Preventative Health Evaluation 05/12/2024 05/12/2023, 05/08/2022, 05/07/2021, Additional history exists Osteoporosis Screening (DEXA Scan) 12/16/2024 12/16/2022 (Declined) Influenza Vaccine (#1) 2025 3, 05/07/2021, 03/02/2021 DTap / Tdap / Td (3 - Td or Tdap) 05/12/2033 05/12/2023, 05/07/2004 Hepatitis B Vaccines Aged Out No long er eligible based on patient's age to complete this topic Pneumococcal Vaccine Discontinued RSV Ped < 20 months Aged Out No longe r eligible based on patient's age to complete this topic Care Teams Machine Washer Relationship Specialty Start Date End Date Caleb Perkins MD PCP - General Internal Medicine 06/09/23
== END 2024-12-21 13:43 | disposition home or self-care (01) ==
LOC: HO.HPS 13:12
PROVIDERS: PCP Internal Medicine; Visit Provider Hospitalist
DX: J45.40 Moderate persistent asthma, uncomplicated (principal); D72.10 Eosinophilia, unspecified; J44.9 Chronic obstructive pulmonary disease, unspecified
CPT/HCPCS: 99214

== ENCOUNTER → 2024-12-21 13:12 | Outpatient (BNVA) | payer MEDICARE, SELFPAY | PROVIDERS: PCP Internal Medicine; Visit Provider Hospitalist | DX: J45.40 Moderate persistent asthma, uncomplicated (principal); D72.10 Eosinophilia, unspecified; J44.89 Other specified chronic obstructive pulmonary disease | CPT/HCPCS: 99212 ==

== ENCOUNTER 2025-02-17 08:42 | Outpatient (REF) | payer MEDICARE, SELFPAY ==
--- OUTSIDE RECORDS SUMMARY | 2024-12-13 05:10 | XMS_ITS ---
Author Organization [facility] Address [address] [place] [address] Care Team Providers Care Field Care Advocate Name Role Phone Caleb Perkins M.D. Primary Care Provider Ronda milenaRefugio Barajas [phone] REASON FOR VISIT screening,serrated polyp Encounters Encounter Location Date Provider Diagnosis [facility] Outpatient [address] [place] [id number] 12/13/2024 Refugio Mix Plan Of Treatment Next Appt Details Provider Name:Refugio Mix , 03/07/2025 10:30:00 AM, [address] [place] [address], [phone], Progress Notes * CAMERON HSIEH JoannaDOB: (79 yo F)Acc No.[id number]:12/13/2024 COLON WITH MAC Patient: CAMERON HUBER Provider: Lázaro Mix MD :1945 A ge:79 Y S ex:Female Date:12/13/2024 Address:[address] [place] [phone] Pcp:Caleb Perkins M.D. Subjective: * Chief Complaints: [...] 12/13/2024 Generated for Mariangel silva/Alvarado/Cody on: 0 02/17/2025 09:59 AM EDT
[2025-02-17 09:02] LABS: MANUAL DIFF FLAG NO
[2025-02-17 09:29] LABS: Hematocrit 39.9 % (37.0-47.0); Hemoglobin 13.1 g/dl (12.0-16.0); Imm Gran Abs Auto 0.05 X10*3/uL (0.00-0.03); Imm Gran Pct Auto 0.6 % (0.0-0.4); Lymphocytes Absolute Auto 3.2 X10*3/uL (1.2-4.9); Mean Corpuscular HGB Conc 32.8 g/dl (31.0-35.0); Mean Corpuscular Hemoglobin 28.8 pg (27.0-33.0); Mean Corpuscular Volume 87.7 fL (80.0-98.0); NRBC Abs Auto 0.000 X10*3/uL (0.0-0.012); NRBC Pct Auto 0.0 /100WBC (0.0-0.2); Platelet Count 255 X10*3/uL (160-400); Red Blood Count 4.55 X10*6/uL (4.20-5.50); White Blood Count 8.7 X10*3/uL (4.8-10.8)
--- OUTSIDE RECORDS SUMMARY | 2025-02-17 09:59 | XMS_ITS | Patient Health Record ---
Author Organization [facility] Address [address] [place] [address] Care Team Providers Care Contractor Buyer Name Role Phone Caleb Perkins M.D. Primary Care Provider Ronda Refugio Wick Unavailable [phone] Allergies Allergen (clinical drug ingredient) Drug/Non Drug [...] Status Risk Notes Problem Colon cancer screening (514111140) Colon cancer screening (Z12.11) Active confirmed Problem 245439299 Encounter for screening for malignant neoplasm of colon (Z12.11) Active confirmed Problem Dysphagia (72198976) Dysphagia (R13.10) Active confirmed Problem Esophageal stricture (64271717) Esophageal stricture (K22.2) Active confirmed Problem Hiatal hernia (69282110) Hiatal hernia (K44.9) Active confirmed Problem Diverticulosis of colon (163706179) Diverticulosis of colon (K57.30) Active confirmed Problem Serrated polyp of colon (092851658) Serrated polyp of colon (K63.5) Active confirmed Problem 444908497 Gastroesophageal reflux disease, unspecified whether esophagitis present (K21.9) Active confirmed Problem Gastroesophageal reflux disease with esophagitis (disorder) (865392883) Gastro-esophageal reflux disease with esophagitis, without bleeding (K21.00) Active confirmed Problem 36944787 Esophageal dysphagia (R13.19) Active confirmed Vital Signs Blood pressure diastolic 11 mm Hg 09/14/2024 Height 63 in 09/14/2024 Blood pressure systolic 111 mm Hg 09/14/2024 Weight 213 lbs 09/14/2024 BMI 37.73 kg/m2 09/14/2024 Procedures Procedure Date Ordered Date Performed Result Body Sit e COLONOSCOPY 09/14/2024 N/A Encounters Encounter Location Date Provider Diagnosis [facility] [address] [place] [address] 09/14/2024 Refugio Mix Esophageal stricture K22.2 ; [...] Provider Name:Refugio Mix , 03/07/2025 10:30:00 AM, [address] [place] [address] , [place], [place], [phone], Insurance Providers Payer Name Payer Address Payer Phone Subscriber Number Group Number Insured Name Patient Relationship to Insured Coverage Start Date Coverage End Date [place] [address] [place] [address] [id number] SANDRA HSIEH Self - patient is the insured MEDEX ATTN CLAIMS [address] [place] [address] [phone] [id number] SANDRA HSIEH Self - patient is the insured Medical (General) History Medical History History ICD Code Denies [place],DM,CVA,renal disease GERD Hypothyroidism Hyperlipidemia Anxiety Asthma-seeing Dr. 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
--- OUTSIDE RECORDS SUMMARY | 2025-02-17 09:59 | XMS_ITS | Clinical Summary ---
Author Organization [facility] Address [address] [place] [address] Phone Care Team Providers Care Retail Merchandising Specialist Name Role Phone Linda Bell NP Primary Care Provider + [phone] Matheus Lopez MD Unavailable [phone] Social History Tobacco Use Types Packs/Day Years [...] VACCINE (1 - 1-dose 75+ series) 2022 INFLUENZA VACCINE (#1) 2024 COVID-19 VACCINE (2023-2 5 season) 2025 HEPATITIS A VACCINES Aged Out No long [...] file Insurance MEDICARE PART A & B [facility] MEDEX SUPPLEMENT MEDICARE PART A & B [employer] MED[employer] SUPPLEMENT MEDICARE PART A & B [employer] MED[employer] SUPPLEMENT MEDICARE PART A & B [employer] MEDEX SUPPLEMENT MEDICARE PART A & B [employer] MEDEX SUPPLEMENT MEDICARE PART A & B [employer] MEDEX SUPPLEMENT Care Teams Retail Merchandising Specialist Relationship Specialty Start Date End Date Linda Bell NP [address] [place] [address] [address] [place] [address] [email or web address] PCP - General Nurse Practitioner 01/23/23 Matheus Lopez MD [address] [place] [address] Dr [place] [address] Orthopedic Surgery 01/27/23 Additional Source Comments The information contained in this document represents components of the legal health record. It is not the complete legal health record.[facility]
--- OUTSIDE RECORDS SUMMARY | 2025-02-17 09:59 | XMS_ITS | Clinical Summary ---
Author Organization [address] [place] [address] Building Address [address] [place] [address] Phone Care Team Providers Care Ice Cream Machine Operator Name Role Phone Caleb Perkins MD Primary [...] day. 90 tablet 3 05/19/20 24 Active mometasone (ELOCON) 0.1 % ointment Apply a thin layer to the affected area nightly for two weeks, then MWF thereafter 30 g 3 08/18/19 25 Active levothyroxine (SYNTHROID, LEVOTHROID) 112 mcg tabletIndications: Acquired hypothyroidism Take 1 tablet (112 mcg total) by mouth See administration instructions. TAKE 1 TABLET BY MOUTH DAILY FOR 5 DAYS A WEEK 90 tablet 12/29/19 25 025 Active budesonide-formote roL (SYMBICORT) 160-4.5 mcg/actuation inhaler INHALE 2 INHALATIONS INTO THE LUNGS 2 TIMES A DAY 51 g 01/08/20 25 Active Active Problems Problem Noted Date Diagnosed Date Anxiety 04/06/2024 Diverticulosis of colon 05/08/2022 Gastro-esophageal reflux dis ease with esophagitis, without bleeding 05/08/2022 Simple chronic bronchitis (CMS/HCC V24, CMS/HCC V28) 10/31/2021 Lichen sclerosus 09/05/2020 Other insomnia 07/18/2019 PLMD (periodic limb movement disorder) 1 Sleep apnea 01/29/2011 Eczema 07/02/2007 Dysphagia 08/23/2005 Overview (04/06/2024): 05/2004 IMO update Hyperlipidemia 08/23/2005 Overview (04/06/2024): 10/11-mibi at [place] negative for ischemia Assessment & Plan (05/19/2024 [...] eservative (Fluzone; Afluria) 6mo and older 03/02/2021 Prysm SARS-CoV-2 COVID-19, mRNA, LNP-S, preservative free 01/03/2021 [...] 2 Alive Father Maternal Grandfather Maternal Grandmother [place] age mid 70 Mother Paternal Grandfather Paternal [...] 08/17/2024 1:05 PM EDT Plan of Treatment Upcoming Encounters Date Type Department Care Team (Late st Contact Info) Description 02/18/2025 11:30 AM EDT Office Visit Internal Medicine - [place] [address] [place], [place] [address]e [place] [address] [place] [address] Caleb Perkins MD [address] [place] [address] 05/20/2025 10:00 AM EST Office Visit Internal Medicine - Isabella Yousifs [address] [place] [address] Caleb Perkins MD [address] [place] [address] Health Maintenance Due Date Last Done Comments Zoster Vaccines (1 of 2) 1997 Hepatitis C Screening 05/09/2022 Osteoporosis Screening (Bone Density Screening) 05/09/2022 Social Influencers of Health Screening 05/09/2022 RSV Immunization Adult Patients (1 - 1-dose 75+ series) 2022 Depression Screening 06/02/2024 05/19/2024, 05/12/20 23 COVID-19 Vaccine ( season) 2025 06/21/2023, 05/09/2021, 01/03/2021, Additional history exists Influenza Vaccine (#1) 2025 , 03/27/2022, 05/07/2021, [...] Maintenance Results * Falls Risk Assessment (05/12/2023) Pathologist [facility] Falls Risk Assessment abstracted Historical Provider HEALTH MAINTENANCE Final Result * Depression Screening (05/12/2023) Pathologist [facility] Depression Screening abstracted [facility] Provider HEALTH MAINTENANCE Final Result * Lipid panel (05/12/2023) Pathologist [facility] Triglycerides 0 mg/dL Comment:no interpretation Cholesterol 0 mg/dL Comment:n interpretation HDL 0 mg/dL Comment:no interpretation LDL Cholesterol 0 mg/dL Comment:no interpretation Blood Venous blood specimen / Unknown Historical Provider LAB BLOOD ORDERABLES Breanne l Result from Last 3 Months or Most Recently Relevant to Health Maintenance Insurance MEDICARE [facility] Care Teams Ice Cream Machine Operator Relationship Specialty Start Date End Date Caleb Perkins MD [address] [place] [address] PCP - General 06/09/23
--- OUTSIDE RECORDS SUMMARY | 2025-02-17 10:00 | XMS_ITS | Clinical Summary ---
Author Organization [facility] Address [address] [place] [address] Care Team Providers Care Paralegal Legal Secretary Name Role Phone Caleb Perkins MD Primary [...] update Hyperlipidemia 08/23/2005 09/29/2020 Overview: 10/11-mibi at [place] negative for ischemia GERD (gastroesophageal reflux disease) [...] 2 Alive Father Maternal Grandfather Maternal Grandmother [place] age mid 70 Mother Paternal Grandfather Paternal [...] or (1 - 1-dose 75+ series) 2022 BMI Counseling 05/12/2024 05/12/2023, 11/30, 05/08/2022, Additional history exists Depression Screening 05/12/2024 05/12/2023, 05/12/2023, 05/08/2022, Additional history exists Fall Risk Assessment 05/12/2024 05/12/2023, 05/12/2023, 05/08/2022, Additional history exists Preventative Health Evaluation 05/12/2024 05/12/2023, 05/08/2022, 05/07/2021, Additional history exists Osteoporosis Screening (DEXA Scan) 12/16/2024 12/16/2022 (Declined) COVID-19 Vaccine ( season) 2025 01/03/2021, 08/10/2020, 07/20/2020 Influenza Vaccine (#1) 2025 , 05/07/2021, 03/02/2021 DTap / Tdap / Td (3 - Td or Tdap) 05/12/2033 05/12/2023, 05/07/2004 Hepatitis B Vaccines Aged Out No long er eligible based on patient's age to complete this topic Pneumococcal Vaccine Discontinued RSV Ped < 20 months Aged Out No longe r eligible based on patient's age to complete this topic Care Teams Paralegal Legal Secretary Relationship Specialty Start Date End Date Caleb Perkins MD PCP - General Internal Medicine 06/09/23
[2025-02-17 10:05] LABS: Alanine Aminotransferase 15 U/L (0-31); Albumin Level 4.1 g/dL (3.5-5.0); Alkaline Phosphatase 84 U/L (39-117); Anion Gap 8 (12-20); Aspartate Amino Transferase 18 U/L (5-31); Blood Urea Nitrogen 14 mg/dL (9-16); Calcium 9.2 mg/dL (8.4-10.2); Carbon Dioxide 29 mmol/L (22-29); Chloride 109 mmol/L (96-108); Cholesterol 308 mg/dL (<200); Estimated Glomerular Filt Rate > 60; HDL Cholesterol 63 mg/dL (>40); Potassium 4.2 mmol/L (3.3-5.1); Sodium 142 mmol/L (135-145); Total Protein 6.5 g/dL (6.5-8.0); Triglycerides 179 mg/dL (<150)
[2025-02-17 10:22] LABS: Thyroid Stimulating Hormone 1.57 uIU/mL (0.32-4.0)
== END 2025-02-17 08:43 | disposition home or self-care (01) ==
LOC: HO.LAB 08:42
PROVIDERS: PCP Internal Medicine; Visit Provider Internal Medicine
DX: E03.9 Hypothyroidism, unspecified (principal)
CPT/HCPCS: 36415; 80053; 80061; 84443; 85025

== ENCOUNTER 2025-02-28 22:15 | Emergency (ER) | payer MEDICARE, SELFPAY ==
--- OUTSIDE RECORDS SUMMARY | 2024-12-13 05:10 | XMS_ITS ---
Author Organization [facility] Address [address] [place] [phone] Care Team Providers Care School Bus Mechanic Name Role Phone Caleb Perkins M.D. Primary Care Provider Ronda milenaRefugio Barajas [phone] REASON FOR VISIT screening,serrated polyp Encounters Encounter Location Date Provider Diagnosis [facility] [place] [address] [place] [id number] 12/13/2024 Refugio iMx Plan Of Treatment Next Appt Details Provider Name:Refugio Mix , 03/07/2025 10:30:00 AM, [address] [place] [address], [id number], Progress Notes * CAMERON HSIEH JoannaDOB: (79 yo F)Acc No.[id number]:12/13/2024 COLON WITH MAC Patient: CAMERON HUBER Provider: Lázaro Mix MD :1945 A ge:79 Y S ex:Female Date:12/13/2024 Address:[address] [place] [phone] Pcp:Caleb Perkins M.D. Subjective: * Chief Complaints: * 1 . Screening,serrated polyp. * Medical History: Objective: * Vitals: Assessment: Plan: * Treatment: * * The named appointment provid er may or may not be the originator of this progress note, and it is not deemed complete until electronically signed by the appointment provider. Sign off status: Pending * Provider: Lázaro Mix MD Date: 12/13/2024 Generated for Mariangel silva/Alvarado/Cody on: 0 03/01/2025 02:40 AM EDT
--- NOTE | ~2025-02-28 | XR_ITS ---
CLINICAL HISTORY: cough SOB 1 view chest x-ray Comparison: None provided Findings: Focal left medial lower lobe patchy opacities with air bronchograms. No significant pleural effusion or pneumothorax. Normal size heart. No acute fracture. IMPRESSION: Suspect left lower lobe pneumonia or aspiration. This document has been electronically signed by: Paresh Morrison MD on 03/01/2025 01:14:57
[2025-02-28 22:18] VITALS: BP 121/68; PULSE 118; RESP 20; TEMP 37.5; O2SAT 95; BMI 37.3
--- NOTE | 2025-02-28 22:24 | ECG_ITS ---
Test Reason : SOB Blood Pressure : */* mmHG Vent. Rate : 113 BPM Atrial Rate : 113 BPM P-R Int : 154 ms QRS Dur : 70 ms QT Int : 322 ms P-R-T Axes : 35 14 32 degrees QTcB Int : 441 ms Sinus tachycardia Possible Anterior infarct , age undetermined Abnormal ECG When compared with ECG of 13-Dec-2020 12:00, Vent. rate has increased by 44 bpm Referred By: Generic ED Physician Electronically Signed By: RIKKI LANGE
[2025-02-28 22:46] LABS: MANUAL DIFF FLAG NO
[2025-02-28 22:47] LABS: Hematocrit 37.1 % (37.0-47.0); Hemoglobin 12.5 g/dl (12.0-16.0); Imm Gran Abs Auto 0.08 X10*3/uL (0.00-0.03); Imm Gran Pct Auto 0.8 % (0.0-0.4); Lymphocytes Absolute Auto 1.6 X10*3/uL (1.2-4.9); Mean Corpuscular HGB Conc 33.7 g/dl (31.0-35.0); Mean Corpuscular Hemoglobin 28.8 pg (27.0-33.0); Mean Corpuscular Volume 85.5 fL (80.0-98.0); NRBC Abs Auto 0.000 X10*3/uL (0.0-0.012); NRBC Pct Auto 0.0 /100WBC (0.0-0.2); Platelet Count 257 X10*3/uL (160-400); Red Blood Count 4.34 X10*6/uL (4.20-5.50); White Blood Count 10.3 X10*3/uL (4.8-10.8)
[2025-02-28 23:04] LABS: IDNOW Serial# 152EDE1D; Influenza B2 Negative (Negative)
[2025-02-28 23:05] LABS: COVID-19 Test Positive (Negative); IDNOW Serial# 16C4AD1C
[2025-02-28 23:06] LABS: Alanine Aminotransferase 9 U/L (0-31); Albumin Level 4.0 g/dL (3.5-5.0); Alkaline Phosphatase 88 U/L (39-117); Anion Gap 13 (12-20); Aspartate Amino Transferase 13 U/L (5-31); Blood Urea Nitrogen 14 mg/dL (9-16); Calcium 9.2 mg/dL (8.4-10.2); Carbon Dioxide 25 mmol/L (22-29); Chloride 107 mmol/L (96-108); Creatinine Clr Calc Pharmacy 64.7; Estimated Glomerular Filt Rate > 60; Magnesium 2.0 mg/dL (1.6-2.6); Potassium 4.1 mmol/L (3.3-5.1); Sodium 141 mmol/L (135-145); Total Protein 6.7 g/dL (6.5-8.0)
[2025-02-28 23:13] LABS: NT Pro B Type Natriuretic Pept 102.5 pg/mL (<300); Troponin-I High Sensitivity < 2.7 ng/L (<3.5-17.0)
--- OUTSIDE RECORDS SUMMARY | 2025-03-01 02:39 | XMS_ITS | Patient Health Record ---
Author Organization [facility] Address [address] [place] [id number] Care Team Providers Care Sterile Process Coordinator Name Role Phone Caleb Perkins M.D. Primary Care Provider Ronda Refugio Wick Unavailable [phone] Allergies Allergen (clinical drug ingredient) Drug/Non Drug [...] Status Risk Notes Problem Colon cancer screening (801189421) Colon cancer screening (Z12.11) Active confirmed Problem 028457659 Encounter for screening for malignant neoplasm of colon (Z12.11) Active confirmed Problem Dysphagia (60194481) Dysphagia (R13.10) Active confirmed Problem Esophageal stricture (75967112) Esophageal stricture (K22.2) Active confirmed Problem Hiatal hernia (96080856) Hiatal hernia (K44.9) Active confirmed Problem Diverticulosis of colon (362766328) Diverticulosis of colon (K57.30) Active confirmed Problem Serrated polyp of colon (608486180) Serrated polyp of colon (K63.5) Active confirmed Problem 309031233 Gastroesophageal reflux disease, unspecified whether esophagitis present (K21.9) Active confirmed Problem Gastroesophageal reflux disease with esophagitis (disorder) (855873539) Gastro-esophageal reflux disease with esophagitis, without bleeding (K21.00) Active confirmed Problem 80634313 Esophageal dysphagia (R13.19) Active confirmed Vital Signs Blood pressure diastolic 11 mm Hg 09/14/2024 Height 63 in 09/14/2024 Blood pressure systolic 111 mm Hg 09/14/2024 Weight 213 lbs 09/14/2024 BMI 37.73 kg/m2 09/14/2024 Procedures Procedure Date Ordered Date Performed Result Body Sit e COLONOSCOPY 09/14/2024 N/A Encounters Encounter Location Date Provider Diagnosis [facility] [address] [facility] [address] [place] [address] 09/14/2024 Refugio Mix Esophageal stricture K22.2 ; [...] Provider Name:Refugio Mix , 03/07/2025 10:30:00 AM, [address] [place] [address] , [place], [place], [id number], Insurance Providers Payer Name Payer Address Payer Phone Subscriber Number Group Number Insured Name Patient Relationship to Insured Coverage Start Date Coverage End Date MEDICARE OF [place] [address] [place] [place] [address] [id number] SANDRA HSIEH Self - patient is the insured MEDEX ATTN CLAIMS [address] [place] [phone] [id number] SANDRA HSIEH Self - patient is the insured Medical (General) History Medical History History ICD Code Denies VT,DM,CVA,renal disease GERD Hypothyroidism Hyperlipidemia Anxiety Asthma-seeing Dr. 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
--- OUTSIDE RECORDS SUMMARY | 2025-03-01 02:39 | XMS_ITS | Encounter Summary ---
Author Organization [facility] [place] [address] Care Team Providers Care Ocular Care Technician Name Role Phone Caleb Perkins MD Primary Care Provider Encounter Details Date Type Department Care Team (Late st Contact Info) Description 02/23/2025 Telephone Internal Medicine - [place] [address] [place] [id number] Jeanie Sanchez MA Social History Tobacco Use Types Packs/Day Years [...] on file Sexual Orientation Not on file documented as of this encounter Progress Notes * Mat Sanchez RN - 02/25/2025 9:21 AM EDTAddended by: MAT SANCHEZ on: 02/25/2025 09:21 AM Modules accepted: Orders * Jeanie Sanchez MA - 02/23/2025 3:15 PM EDT The pt reported receiving a letter indicating that the prescribed medication, Zepbound 2.5 mg, was denied for use due to loss of appetite, weight loss, and weight gain. documented in this encounter Plan of Treatment Upcoming Encounters Date Type Department Care Team (Late st Contact Info) Description 08/19/2025 11:00 AM EDT Office Visit Internal Medicine - [place] [address] [facility] [address] [place] [address] Caleb Perkins MD [address] [place] [address] documented as of this encounter Visit Diagnoses Not on filedocumented in this encounter Discontinued Medications Medication Sig Discontinue Reason Start Date End Da te tirzepatide, weight loss, (Zepbound) 2.5 mg/0.5 mL injectionIndications:Obs tructive sleep apnea syndrome Inject 0.5 mL (2.5 mg total) under the skin every 7 (seven) days. Cost of medication 02/18/2025 02/25/2025 documented as of this encounter Additional Health Concerns Assessment Noted Time PHQ-9 Depression Total Score: 1 05/19/20 10:43 AM EST A fall risk assessment has been complete d for the patient 05/19/2024 10:41 AM EST documented as of this encounter Care Teams Ocular Care Technician Relationship Specialty Start Date End Date Caleb Perkins MD [address] [place] [address] PCP - General 06/09/23 documented as of this encounter
--- OUTSIDE RECORDS SUMMARY | 2025-03-01 02:40 | XMS_ITS | Clinical Summary ---
Author Organization [facility] Address [address] [place] [address] Phone Care Team Providers Care Cosmetic Dentist Name Role Phone Linda Bell NP Primary Care Provider [phone] Matheus Lopez MD Unavailable [phone] Social History Tobacco Use Types Packs/Day Years [...] file Insurance MEDICARE PART A & B [facility] MEDEX SUPPLEMENT MEDICARE PART A & B [employer] MEDEX SUPPLEMENT MEDICARE PART A & B [employer] MEDEX SUPPLEMENT MEDICARE PART A & B [employer] MEDEX SUPPLEMENT MEDICARE PART A & B [employer] MEDEX SUPPLEMENT MEDICARE PART A & B [employer] CROSS MEDEX SUPPLEMENT Care Teams Cosmetic Dentist Relationship Specialty Start Date End Date Linda Bell NP [address] [place] [address] Dr [facility] [place] [address] [email or web address] PCP - General Nurse Practitioner 01/23/23 Matheus Lopez MD [address] [place] [address] Dr [facility] [address] Orthopedic Surgery 01/27/23 Additional Source Comments The information contained in this document represents components of the legal health record. It is not the complete legal health record.[facility]
--- OUTSIDE RECORDS SUMMARY | 2025-03-01 02:41 | XMS_ITS | Clinical Summary ---
Author Organization [facility] Address [address] [place] [address] Care Team Providers Care Data Warehousing Engineer Name Role Phone Caleb Perkins MD Primary [...] update Hyperlipidemia 08/23/2005 09/29/2020 Overview: 10/11-mibi at [facility] negative for ischemia GERD (gastroesophageal reflux disease) [...] 2 Alive Father Maternal Grandfather Maternal Grandmother [place] age mid 70 Mother Paternal Grandfather Paternal [...] age to complete this topic Care Teams Data Warehousing Engineer Relationship Specialty Start Date End Date Caleb Perkins MD PCP - General Internal Medicine 06/09/23
--- OUTSIDE RECORDS SUMMARY | 2025-03-01 02:41 | XMS_ITS | Clinical Summary ---
Author Organization [address] [place] [address] Building Address [address] [place] [address] Phone Care Team Providers Care Admeasurer Name Role Phone Caleb Perkins MD Primary Care Provider [phone] Allergies Active Allergy Reactions Criticality Noted Date [...] tablet Take 1 tablet by mouth. Active mometasone (ELOCON) 0.1 % ointment Apply a thin layer to the affected area nightly for two weeks, then MWF thereafter 30 g 3 08/18/19 25 Active levothyroxine (SYNTHROID, LEVOTHROID) 112 mcg tabletIndications :Acquired hypothyroidism Take 1 tablet (112 mcg total) by mouth See administration instructions. TAKE 1 TABLET BY MOUTH DAILY FOR 5 DAYS A WEEK 90 tablet 12/29/19 25 025 Active budesonide-formot Gerson (SYMBICORT) 160-4.5 mcg/actuation inhaler INHALE 2 INHALATIONS INTO THE LUNGS 2 TIMES A DAY 51 g 01/08/20 25 Active citalopram (CeleXA) 20 mg tablet Take 1 tablet (20 mg total) by mouth 1 (one) time each day. 90 tablet 3 02/23/20 25 Active citalopram (CeleXA) 20 mg tablet Take 1 tablet (20 mg total) by mouth 1 (one) time each day. 90 tablet 3 05/19/20 24 025 Disconti nued(Reo rder) tirzepatide, weight loss, (Zepbound) 2.5 mg/0.5 mL injectionIndicati ons:Obstructive sleep apnea syndrome Inject 0.5 mL (2.5 mg total) under the skin every 7 (seven) days. 2 mL 11 02/19/20 25 025 Disconti nued(Cos t of medicati on) Active Problems Problem Noted Date Diagnosed Date Anxiety 04/06/2024 Diverticulosis of colon 05/08/2022 Gastro-esophageal reflux dis ease with esophagitis, without bleeding 05/08/2022 Simple chronic bronchitis ([facility] V24, [facility] V28) 10/31/2021 Lichen sclerosus 09/05/2020 Other insomnia 07/18/2019 PLMD (periodic limb movement disorder) 1 Sleep apnea 01/29/2011 Assessment & Plan (02/19/2025 5:06 PM EDT): -given approval for MARTA will prescribe -f/u monthly if plateau is reached or side effects otherwise follow up in 6 months Orders: tirzepatide, weight loss, (Zepbound) 2.5 mg/0.5 mL injection; Inject 0.5 mL (2.5 mg total) under the skin every 7 (seven) days. Eczema 07/02/2007 Dysphagia 08/23/2005 Overview (04/06/2024): 05/2004 IMO update Hyperlipidemia 08/23/2005 Overview (04/06/2024): 10/11-mibi at [place] negative for ischemia Assessment & Plan (05/19/2024 1:03 PM EST): -stable Hypothyroidism 08/23/2005 Assessment & Plan (05/19/2024 1:03 PM EST): -continue synthroid 112 mcg daily 5 days a week Orders: Lipid panel; Future CBC and differential; Future Comprehensive metabolic panel; Future Thyroid stimulating hormone; Future Encounters Date Type Department Care Team Description 02/23/2025 Telephone Internal Medicine - [place] [address] [place] [address] Jeanie Sanchez MA 02/18/2025 11:30 AM EDT Office Visit Internal Medicine - [place] [address] [place] [address] Caleb Perkins MD Obstructive sleep apnea syndrome (Primary Dx) from Last 3 Months Immunizations Immunization Administration Dates Next Due Influenza Quadravalent, 0.5m l (Fluad) 65yo and older 05/07/2021 Influenza Quadravalent, 0.5m l (Fluzone High-dose) 65yo and older 05/12/2023,03/27/2022,04/03/2017 Influenza trivalent, with pr eservative (Fluzone; Afluria) 6mo and older 03/02/2021 [employer] SARS-CoV-2 COVID-19, mRNA, LNP-S, preservative free 01/03/2021 [...] 2 Alive Father Maternal Grandfather Maternal Grandmother [place] age mid 70 Mother Paternal Grandfather Paternal [...] Sign Reading Time Taken Comments Blood Pressure 101/69 02/18/2025 11:29 AM EDT Pulse 84 02/18/2025 11:29 AM EDT Temperature 36.6 C (97.8 F) 02/18/2025 11:29 AM EDT Respiratory Rate 18 02/18/2025 11:29 AM EDT Oxygen Saturation 95% 02/18/2025 11:29 AM EDT Inhaled Oxygen Concentration - - Weight 97.3 kg (214 lb 6.4 oz) 02/18/2025 11:29 AM EDT Height 160 cm (5' 2.99 ) 02/18/2025 11:29 AM EDT Body Mass Index 37.99 02/18/2025 11:29 AM EDT Plan of Treatment Upcoming Encounters Date Type Department Care Team (Late st Contact Info) Description 08/19/2025 11:00 AM EDT Office Visit Internal Medicine - [place] [address] [facility] 2 [place] [address] Caleb Perkins MD [address] [place] [address] Health Maintenance Due Date Last Done Comments [...] Procedure Name Priority Date/Time Associated Diagnosis Comments EXTERNAL CLINICAL LAB 02/18/2025 DEPRESSION SCREENING Routine 05/12/2023 FALLS RISK ASSESSMENT Routine 05/12/2023 LIPID PANEL Routine 05/12/2023 from Last 3 Months or Most Recently Relevant to Health Maintenance Results * External clinical lab (02/18/2025) Provider Brandy [facility] LAB BLOOD ORDERABLES Fin al Result * Falls Risk Assessment (05/12/2023) Falls Risk Assessment abstracted Historical Provider HEALTH MAINTENANCE Final Result * Depression Screening (05/12/2023) Pathologist [facility] HM Depression Screening abstracted [facility] Provider HEALTH MAINTENANCE Final Result * Lipid panel (05/12/2023) Pathologist [facility] Triglycerides 0 mg/dL Comment:no interpretation Cholesterol 0 mg/dL Comment:n interpretation HDL 0 mg/dL Comment:no interpretation LDL Cholesterol 0 mg/dL Comment:no interpretation Blood Venous blood specimen / Unknown [facility] Provider LAB BLOOD ORDERABLES Breanne l Result from Last 3 Months or Most Recently Relevant to Health Maintenance Insurance MEDICARE [facility] Care Teams Admeasurer Relationship Specialty Start Date End Date Caleb Perkins MD [address] [place] [address] PCP - General 06/09/23
[2025-03-01 04:28] VITALS: BP 112/69; PULSE 90; RESP 18; TEMP 36.9; O2SAT 94
--- NOTE | 2025-03-01 05:21 | ED.SOB ---
HPI - SOB/Dyspnea General Chief Complaint: Dyspnea Stated Complaint: difficulty breathing, coughing, fell out of bed Time Seen by Provider: 03/01/25 02:40 Source: patient Mode of arrival: ambulatory Limitations: no limitations History of Present Illness ED Provider: Dr. Emerita Yanez HPI Narrative: 79-year-old female with history of COPD/asthma, hypothyroidism presenting with shortness of breath, dry cough, generalized malaise and fatigue ongoing for the last 5 days or so. Admits that she was around her daughter who is sick with similar symptoms. No reported fever or chills. Denies associated chest pain, abdominal pain, vomiting0, significant changes in her bowel habits, urinary complaints, lower extremity edema or pain. Had been feeling well prior to this. No recent travel. Related Data Home Medications ?Medication ?Instructions ?Recorded ?Confirmed citalopram 20 mg tablet 1 tab PO BEDTIME 10/03/20 06/28/21 levothyroxine 125 mcg tablet 1 tab PO BEDTIME 10/03/20 06/28/21 omeprazole 20 mg tablet,delayed 20 mg PO BEDTIME 10/03/20 06/28/21 release budesonide-formoterol HFA 160 2 puff inhalation BID 05/15/21 06/28/21 mcg-4.5 mcg/actuation aerosol inhaler (Symbicort) ibuprofen-diphenhydramine citrate 1 cap PO BEDTIME PRN 12/28/21 200 mg-38 mg tablet (Advil PM) Previous Rx's ?Medication ?Instructions ?Recorded albuterol sulfate 2.5 mg/3 mL 2.5 mg (3 mL) inhalation DAILY 30 12/28/21 (0.083 %) solution for nebulization days #90 mL albuterol sulfate 90 mcg/actuation 2 puff inhalation QID PRN 12/21/24 aerosol inhaler (Ventolin HFA) shortness of breath or wheezing 30 days #18 grams budesonide 160 mcg-glycopyr 9 2 inh inhalation BID #10.7 grams 12/21/24 mcg-formot 4.8 mcg/actuation HFA inhaler (Breztri Aerosphere) montelukast 10 mg tablet 10 mg PO BEDTIME #90 tabs 12/21/24 prednisone 50 mg tablet 50 mg PO DAILY 5 days #5 tabs 03/01/25 Allergies Allergy/AdvReac Type Severity Reaction Status Date / Time erythromycin base Allergy Intermediate swelling, Verified 02/28/25 22:22 itching Penicillins Allergy Intermediate itching/swe Verified 02/28/25 22:22 lling/rash nickel Allergy Unknown Verified 02/28/25 22:22 Review of Systems Review of Systems: As per HPI, full review of systems performed and negative but for the above mentioned pertinent positives and negatives. [facility] Past Medical History Medical History Asthma-COPD overlap syndrome COVID-19 vaccine series completed Bilateral lower extremity edema Eosinophilia Asthma History of positive PPD Hypothyroid GERD (gastroesophageal reflux disease) History of anxiety Elevated cholesterol Surgical History Hx of cataract extraction History of total replacement of right hip Hx of hysterectomy Hx of cholecystectomy Social History Social History Are you a primary rn home care to a significant other at home: No Do you presently have visiting nurse or other home services: No Patient Tobacco Use Status: Former Tobacco user Tobacco use type: Cigarette Years Smoked: 40 Smoked in Last 30 Days: No Use of substances other than those prescribed or required for medical reasons: No Advance Directives: Yes Advance Directives Information Provided: Yes Advance Directives on File: No Advance Directives Date on File: 07/12/15 Physical Exam Exam: Exam: GENERAL: Ill-Appearing, appears uncomfortable. SKIN: Normal skin color for ethnicity, warm, dry, no rashes noted. HEENT: Normocephalic, atraumatic, no stridor, dry mucous membranes, dentition intact, EOMI, PERRLA. NECK: Soft, supple, full ROM, midline structures nontender, no step-offs, no deformities, no lymphadenopathy. CHEST: Heart regular tachycardia, no murmurs, symmetric chest rise and fall. PULMONARY: Clear to auscultation bilaterally, occasional bronchospastic cough, diminished at the bases, no labored breathing, no wheezes/rhales/rhonchi. ABDOMINAL: Soft, nondistended, nontender, positive bowel sounds in all quadrants. : Deferred. MUSCULOSKELETAL: Normal tone, full range of motion, no deformities, no peripheral edema. NEURO: Alert and oriented x3, CN II through XII intact, equal strength and sensation bilateral upper and lower extremities, no focal neurologic deficits. PSYCHIATRIC: Flat affect, fluid speech, good eye contact and appropriate demeanor. Vital Signs: Vital Signs: Last Vital Signs Temp 98.4 F 03/01/25 04:28 Pulse 90 03/01/25 04:28 Resp 18 03/01/25 04:28 BP 112/69 03/01/25 04:28 Pulse Ox 94 03/01/25 04:28 O2 Del Method Room Air 03/01/25 04:28 BMI result Body Mass Index 37.3 Medical Decision Making Medical Decision Making [facility] Narrative: Patient presents today with flu-like symptoms. Differential diagnosis includes influenza, coronavirus, pneumonia, upper respiratory infection, among others. Most importantly, this patient is not in any acute respiratory distress. They have normal oxygen levels at room air. I have discussed medication and other home therapies that will help the patient and have discussed strict return precautions. Instructed that symptoms may worsen and the patient might need re-evaluation or even hospitalization in the future, but did not show signs of this at the time of discharge. Encouraged use of prednisone for the next 5 days as well as use of her inhaler for coughing fits and bronchospasm. She is out of the window for treatment with Paxlovid. Differential Diagnosis Differential Diagnoses: The differential diagnosis associated with the presentation includes (As above) Admission/Observation Consideration of admission/observation: Escalation of care including admission/observation considered Lab Data [facility] Lab Attestation statement: I reviewed the patient's lab results. 02/28/25 22:37 02/28/25 22:37 Labs: Lab Results 02/28/25 Range/Units 22:37 WBC 10.3 (4.8-10.8) X10*3/uL RBC 4.34 (4.20-5.50) X10*6/uL Hgb 12.5 (12.0-16.0) g/dl Hct 37.1 (37.0-47.0) % MCV 85.5 (80.0-98.0) fL MCH 28.8 (27.0-33.0) pg MCHC 33.7 (31.0-35.0) g/dl RDW 12.7 (11.0-16.0) % Plt Count 257 (160-400) X10*3/uL MPV 9.3 L (9.4-12.3) fL Immature Gran % (Auto) 0.8 H (0.0-0.4) % Neut % (Auto) 74.3 H (45-73) % Lymph % (Auto) 15.6 L (20-40) % Conway % (Auto) 5.1 (2-11) % Eos % (Auto) 3.7 (0-4) % Baso % (Auto) 0.5 (0-2) % Lymph # (Auto) 1.6 (1.2-4.9) X10*3/uL Conway # (Auto) 0.5 (0.1-1.2) X10*3/uL Eos # (Auto) 0.4 (0.0-0.4) X10*3/uL Baso # (Auto) 0.1 (0.0-0.2) X10*3/uL Abs Immat Gran (auto) 0.08 H (0.00-0.03) X10*3/uL Absolute Neuts (auto) 7.7 (2.0-8.3) x10*3/uL Absolute Nucleated RBC 0.000 (0.0-0.012) X10*3/uL Nucleated RBC % (auto) 0.0 (0.0-0.2) /100WBC Sodium 141 (135-145) mmol/L Potassium 4.1 (3.3-5.1) mmol/L Chloride 107 (96-108) mmol/L Carbon Dioxide 25 (22-29) mmol/L Anion Gap 13 (12-20) BUN 14 (9-16) mg/dL Creatinine 0.80 (0.5-1.4) mg/dL Estim Creat Clear Calc 64.7 Estimated GFR > 60 Random Glucose 131 H (60-115) mg/dL Calcium 9.2 (8.4-10.2) mg/dL Magnesium 2.0 (1.6-2.6) mg/dL Total Bilirubin 0.2 (0.0-1.0) mg/dL AST 13 (5-31) U/L ALT 9 (0-31) U/L Alkaline Phosphatase 88 (39-117) U/L Troponin I High Sens < 2.7 (<3.5-17.0) ng/L NT-Pro-B Natriuret Pep 102.5 (<300) pg/mL Total Protein 6.7 (6.5-8.0) g/dL Albumin 4.0 (3.5-5.0) g/dL COVID-19 (AXEL) Positive A (Negative) COVID-19 Clin Com See Note Influenza Type A (KELSEY) Negative (Negative) Influenza Type B (KELSEY) Negative (Negative) Influenza A & B Note See Note Independent Interpretation I performed an independent interpretation of an: EKG and Plain X-Ray Interpretation: My independent interpretation of the chest x-ray reveals no consolidations, pulmonary edema, pleural effusion, pneumothorax, obvious bony abnormalities. Radiology Impression Discussion of test interpretation with radiology: I have reviewed the radiologist's reading. Radiologist Impression: Disagree with infiltrate reading in the left lower lobe. Patient has no evidence of pneumonia today on exam or history. She is afebrile with a low white blood cell count, no changes in sputum production and no chest pain. Independent Historian Clinical information obtained from an independent historian. History obtained from or confirmed by: Friend External Record Review External record reviewed: Inpatient record Prescription Management I considered prescription management with: Other (Steroids) Chronic Conditions Patient?s care impacted by: Other (Hypothyroidism, COPD) Discharge Plan Discharge Clinical Impression: COVID-19 virus infection, Acute exacerbation of chronic obstructive airways disease Patient Disposition: Home, Self-Care Instructions: How to Recover from COVID-19 at Home (ED) Additional Instructions: You tested positive for COVID-19 today. The treatment for COVID-19 is supportive care (rest, albuterol inhaler for coughing fits, honey for sore throat, plenty of fluids over the next several days). You also have some evidence of bronchospasm and can benefit from a course of steroids. I have sent a prescription to your pharmacy for prednisone (50 milligrams) for the next 5 days. Take this medication every day until the course is completed. Do not stop this medication early if you start to feel better. Return to the emergency department immediately with any new or worsening symptoms including: Worsening shortness of breath despite medications, fevers greater than 100 degrees for more than 5 days in a row, inability to tolerate food or drink, passing out, any new symptom that concerns you. Call 911 with any medical emergency. Follow up with your primary care doctor as soon as possible. Prescriptions: New prednisone 50 mg tablet 50 mg PO DAILY 5 Days Qty: 5 0RF No Action citalopram 20 mg tablet 1 tab PO BEDTIME levothyroxine 125 mcg tablet 1 tab PO BEDTIME omeprazole 20 mg Tablet,Delayed Release (Dr/Ec) 20 mg PO BEDTIME Advil PM 200-38 mg tablet 1 cap PO BEDTIME PRN budesonide-formoterol [Symbicort] 160-4.5 mcg/actuation HFA aerosol inhaler 2 puff inhalation BID albuterol sulfate 2.5 mg /3 mL (0.083 %) solution for nebulization 2.5 mg inhalation DAILY 30 Days Qty: 90 11RF Breztri Aerosphere 160-9-4.8 mcg/actuation HFA aerosol inhaler 2 inh inhalation BID Qty: 10.7 11RF montelukast 10 mg tablet 10 mg PO BEDTIME Qty: 90 3RF albuterol sulfate [Ventolin HFA] 90 mcg/actuation HFA aerosol inhaler 2 puff inhalation QID PRN (Reason: shortness of breath or wheezing) 30 Days Qty: 18 11RF Print Language: Danish
[2025-03-01 05:47] VITALS: BP 112/69; PULSE 90; RESP 18; TEMP 36.9; O2SAT 94
== END 2025-03-01 05:48 | disposition home or self-care (01) ==
PROVIDERS: Emergency Provider Emergency Medicine; PCP Internal Medicine
DX: U07.1 COVID-19 (principal); J44.1 Chronic obstructive pulmonary disease with (acute) exacerbation; R06.00 Dyspnea, unspecified; R00.0 Tachycardia, unspecified; R05.9 Cough, unspecified; R53.81 Other malaise; Z87.891 Personal history of nicotine dependence; R94.31 Abnormal electrocardiogram [ECG] [EKG]
CPT/HCPCS: 71045; 80053; 83735; 83880; 84484; 85025; 87502; 87635; 93005; 99284

== ENCOUNTER → 2025-02-28 22:24 | Outpatient (BNV) | payer MEDICARE, SELFPAY | PROVIDERS: Emergency Provider Emergency Medicine; PCP Internal Medicine; Visit Provider Internal Medicine | DX: R00.0 Tachycardia, unspecified (principal) | CPT/HCPCS: 93010 ==

== ENCOUNTER → 2025-03-01 | Outpatient (BNV) | payer MEDICARE, SELFPAY | PROVIDERS: PCP Internal Medicine; Visit Provider Radiology Diagnostic Radiology | DX: R05.9 Cough, unspecified (principal); R06.02 Shortness of breath | CPT/HCPCS: 71045 ==

== ENCOUNTER 2025-03-07 09:29 | Day surgery (SDC) | payer MEDICARE, SELFPAY ==
--- OUTSIDE RECORDS SUMMARY | 2024-11-23 15:34 | XMS_ITS | Data Portability ---
Author Organization [place] - [facility], [facility] - [facility]PATIENT Address [address] [place] [address] Care Team Providers Care Burlap Man Name Role Phone KELVIN GOMEZ Primary Care Provider [phone] Assessment Encounter Date Assessment Date Assessment LastModified by Organization Details LastModified Time 11/15/2019 11/15/2019 DIAGNOSTIC IMAGING: Three views of the right knee are obtained today. She has mild joint space narrowing on the medial side. Joint space maintained laterally, as well as in the patellofemoral compartment. Her alignment is appropriate on short leg films. No fractures are noted. IMPRESSION: Right knee pain. PLAN: I reviewed with the patient. Fortunately she does not have severe ksfw-wl-ecrr osteoarthritis. I do not think she is a surgical candidate. I do think a course of nonoperative treatment including activity modification, rest, ice and elevation will help her symptoms. She should continue to use occasional lmpb-okm-dcbkgve pain medication and try to back off on her Zoom classes for the time being. If she continues to have pain in 4 weeks time, she can follow up with me again for a repeat evaluation. Otherwise, she can follow up as necessary. Her pain is actually improved per her report. We will continue to monitor and treat accordingly. All questions are answered. She is satisfied with this plan. Thank you for including me in the care of this patient. Please do not hesitate to contact my office if you have any additional questions or concerns. The patient completed the COVID-19 screening handout and was deemed healthy to move forward with this appointment. This visit is a zcal-ce-tqeo visit during the COVID-19 pandemic. Based on my clinical judgment, I felt that this visit could not be provided safely and appropriately via TeleHealth. Based on available information prior to presentation, the patient had a high risk of significant worsening and potential functional impairment affecting ADLs if the visit was not completed today. The patient was seen in the office after following PPE use, Workforce Safety, Patient Safety and Infection Control protocols for all services provided today in accordance with [facility] and CDC Guidelines. [email or web address] Not available 11/30/2019 20:27:20 Plan of Treatment Reminders Order Date Submit Date Provider Last Modified By Organization Details Last Modified Time Details Appointments None record ed. Lab None record ed. Referral None record ed. Procedures None record ed. Surgeries None record ed. Imaging None record ed. Medication Orders None record ed. Patient TargetsNo targets recorded. Patient InstructionsNo instructions recorded. Reason for Referral None Reported. Procedures Surgical History Date Name Laterality Status Provider Name and Address Organization Details Recorded Time 10/21/19 19 Orthopaedic Surgery completed [facility] 11/15/2019 13:33:27 Hysterectomy/bladde r repair completed [facility] 11/15/2019 13:33:40 cholecystectomy completed [facility] 11/15/2019 13:33:50 Imaging Results None recorded. Procedure Notes None recorded. Medical Equipment None Reported. Allergies Allergen ID Allergen Name Allergen Category Reaction Reaction Severity Criticality Documentation Date Start Date Code Code System Note Provider Name and Address Organization Details Recorded Time 815008 Product containin g penicilli n (product) medicatio n Not available Not available Not available 11/15/2019 44765 8001 SNOMED [facility] 0 13:31:12 Medications Name Sig Start Date Stop Date Status Note LastModified by Organization Details LastModified Time quetiapine 25 mg tablet active Not Available Not Available No t Available clindamycin HCl 300 mg capsule 11/14 completed Not Available Not Available Not Available azithromycin 250 mg tablet 11/14 completed Not Available Not Available Not Available simvastatin 40 mg tablet active Not Available Not Available No t Available hydromorphone 2 mg tablet 11/14 completed Not Available Not Available Not Available citalopram 20 mg tablet active Not Available Not Available No t Available levothyroxine 125 mcg tablet active Not Available Not Availab le Not Available ergocalciferol (vitamin D2) 1,250 mcg (50,000 unit) capsule TK 1 C PO 1 TIME A WK active Not Available Not Available No t Available mometasone 0.1 % topical cream 11/14 completed Not Available Not Available Not Available omeprazole active Not Available Not Av ailable Not Available Vitals Date Recorded Body height Body mass index (BMI) Body weight Provider Name and Address Organization Details Last Updated DateTime 11/15/2019 160.02 cm 37.2 kg/m2 93111.4 g May Chance [facility] 11/15/2019 13:30:56 Social History Question Answer Notes LastModified by [employer] [place] Details LastModified Time Tobacco Smoking Status 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 No Information not available 11/15/2019 What Is Your Level Of Caffeine Consumption? Moderate Information not available 11/15/2019 Have You Had Cortisone? Yes Information not available 11/15/2019 Work Related Injury? No Information not available 11/15/2019 Sex: Unknown Functional Status Question Answer Note LastModified by [employer] [place] Details LastModified Time What is your level of alcohol consumption? 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 Family History Relationship Description Onset Age of this Age Resolved Age Notes LastModified by Organization Details LastModified Time Father No current problems or disability [email or web address] Not available 11/14 13:32:29 Mother No current problems or disability [email or web address] Not available 11/14 13:32:29 Medical History Condition Response Blood Clots / Phlebitis N HIV or AIDS N Heart Problems N High Blood Pressure N Depression or Anxiety Y Irregular Heartbeat N MRSA N Emphysema / Chronic Bronchitis N Any Other Significant Medical Issues N Reaction to General/Local Anesthesia N Hepatitis / Jaundice N Weight Gain / Loss N Kidney / Bladder Infections N Diabetes N Bleeding Disorder N Hearing Loss N Angina, Heart Failure or Attack N Night Sweats N Seizures / Epilepsy N Osteoarthritis / Rheumatoid arthritis / Other N Cancer N Stroke N Chemical Dependency / Alcoholism N Ulcer / Stomach Bleeding / Indigestion N Visual Loss or Glaucoma N Psoriasis / Skin Rash N Thyroid Disorder Y Heart Disease N Asthma / Shortness of Breath / Sleep Power Distributor ea (please specify) N Pulmonary Embolism N Gynecological HistoryNo gynecological history recorded. Obstetrics History GPAL:G 0 P 0 0 0 0 Past Encounters Encounter ID Performer Location Encounter Start Date Encounter Closed Date Diagnosis/Indication Diagnosis SNOMED-CT Code Diagnosis ICD10 Code Diagnosis Note [id number] TYRESE PERDOMO MD [address] [address] 11/15/2019 12:38:23 11/18/2019 15:41:21 Pain in right knee [id number] 97386 M25.561 Acute worsening in right knee pain that has improved over last 2 weeks. Likely degenerati ve meniscal tear. No interventi on. Continue to monitor. Will call if symptoms persist. Otherwise, follow up as needed. Health Concerns Section Related Observation LastModified by Organization Detai ls LastModified Time None Recorded Concern Status LastModified by Organization Details LastModified Time None Recorded Advance Directives Directive None Recorded Payers Insurance Date Sequence Insurance Name Policy Number Policy Wagner Covered Member ID Wagner Member ID Guarantor Name 11/10/2019 1 [place] [employer] Sandra Y Alexis [id number] Sandra Alexis 11/19/2019 2 [facility] [id number] Sandra Y Alexis [id number] Sandra Alexis Notes Date Note Type Note Provider Name and Address Organization Details Recorded Time 11/15/2019 text/html CHIEF COMPLAINT: Right knee pain. HISTORY OF PRESENT ILLNESS: The patient presents today for evaluation of her right knee. She has had pain in the right knee for approximately the last 2 to 3 weeks. She is quite active. She participates in a Zoom class 3 times a week. She has pain following the class. The pain is located deep within the knee. Primarily medial side. She has used occasional lttj-ycm-guxhfru pain medication secondary to the pain. It does not wake her up at night. She does feel stiff in the knee following the class at times, especially after sitting for a long period of time. She does not have significant swelling of the knee. She has never had an injection in the knee. She has not had an evaluation for this knee in the past. PAST MEDICAL HISTORY: Medical history reviewed and documented in the electronic medical record. No history significant secondary to her right knee pain. REVIEW OF SYSTEMS: As per HPI. TYRESE PERDOMO MD [address] [place] [address], [phone], [facility] - [facility] 12/05/2019 19:52:08 OBGyn Episode No OBEpisode recorded.
[2025-03-03 15:50] VITALS: BMI 37.7
--- NOTE | 2025-03-04 08:55 | HO.ANESPROP2 ---
Documented by User: Jo-Ann Bustillo NP 03/04/25 08:56 HPI - Anesthesia Eval Consult details Narrative: 79yo F for Colonoscopy PMFSH Active Problems Active Problems: All Active Problems COVID-19 virus infection (Acute) Asthma-COPD overlap syndrome (Acute) Bilateral lower extremity edema (Acute) Eosinophilia (Acute) Asthma (Acute) Past Medical History Medical History Abnormal colonoscopy Hiatal hernia HLD (hyperlipidemia) Asthma-COPD overlap syndrome COVID-19 vaccine series completed Bilateral lower extremity edema Eosinophilia Asthma History of positive PPD Hypothyroid GERD (gastroesophageal reflux disease) History of anxiety Elevated cholesterol Family History Family history of problems with anesthesia: No Surgical History Surgical History History of left hip replacement (2018) Hx of cataract extraction History of total replacement of right hip Hx of hysterectomy (1991) Hx of cholecystectomy (1996) History of Problems with Anesthesia: No Social History Social History Are you a primary palliative care nurse practitioner to a significant other at home: No Do you presently have visiting nurse or other home services: No Patient Tobacco Use Status: Former Tobacco user Tobacco use type: Cigarette Years Smoked: 40 Use of substances other than those prescribed or required for medical reasons: No Are you DNR?: No Advance Directives: No Advance Directives Information Provided: Yes Advance Directives Date on File: 07/12/15 Patient : No : No Poor oral hygiene: No Meds Allergies Allergy/AdvReac Type Severity Reaction Status Date / Time erythromycin base Allergy Intermediate swelling, Verified 02/28/25 22:22 itching Penicillins Allergy Intermediate itching/swe Verified 02/28/25 22:22 lling/rash nickel Allergy Unknown Verified 02/28/25 22:22 Home Medications ?Medication ?Instructions ?Recorded ?Confirmed ?Last Taken ?Type citalopram 20 mg tablet 1 tab PO BEDTIME 10/03/20 03/03/25 Unknown History levothyroxine 125 mcg tablet 1 tab PO BEDTIME 10/03/20 03/03/25 Unknown History omeprazole 20 mg tablet,delayed 20 mg PO BEDTIME 10/03/20 06/28/21 Unknown History release budesonide-formoterol HFA 160 2 puff inhalation BID 05/15/21 03/03/25 06/22/21 07:00 History mcg-4.5 mcg/actuation aerosol inhaler (Symbicort) ibuprofen-diphenhydramine citrate 1 cap PO BEDTIME PRN 12/28/21 Unknown History 200 mg-38 mg tablet (Advil PM) Exam Height,Weight and Vital Signs: Height 5 ft 3 in Weight 96.615 kg Assessment and Plan Assessment Anesthesia Assessment: Chart Reviewed Final Anesthetic Review Family History of Problems with Anesthesia: No History of Problems with Anesthesia: No Documented by User: Lit Crews MD 03/07/25 12:07 HPI - Anesthesia Eval Anesthesia Pre-Procedure Meds If yes to any meds - educate patient: Pt education - increased risk of aspiration and/or euvolemic DKA and Pt education - possibility of cancelled proc at provider's discretion PMFSH Past Medical History Medical History Abnormal colonoscopy Hiatal hernia HLD (hyperlipidemia) Asthma-COPD overlap syndrome COVID-19 vaccine series completed Bilateral lower extremity edema Eosinophilia Asthma History of positive PPD Hypothyroid GERD (gastroesophageal reflux disease) History of anxiety Elevated cholesterol Functional capacity: independent ambulation Family History Family history of problems with anesthesia: No Surgical History Surgical History History of left hip replacement (2018) Hx of cataract extraction History of total replacement of right hip Hx of hysterectomy (1991) Hx of cholecystectomy (1996) Social History Social History Are you a primary palliative care nurse practitioner to a significant other at home: No Do you presently have visiting nurse or other home services: No Patient Tobacco Use Status: Former Tobacco user Tobacco use type: Cigarette Years Smoked: 40 Use of substances other than those prescribed or required for medical reasons: No Are you DNR?: No Advance Directives: No Advance Directives Information Provided: Yes Advance Directives Date on File: 07/12/15 Patient : No : No Poor oral hygiene: No Meds Allergies Allergy/AdvReac Type Severity Reaction Status Date / Time erythromycin base Allergy Intermediate swelling, Verified 02/28/25 22:22 itching Penicillins Allergy Intermediate itching/swe Verified 02/28/25 22:22 lling/rash nickel Allergy Unknown Verified 02/28/25 22:22 Home Medications ?Medication ?Instructions ?Recorded ?Confirmed ?Last Taken ?Type citalopram 20 mg tablet 1 tab PO BEDTIME 10/03/20 03/03/25 Unknown History levothyroxine 125 mcg tablet 1 tab PO BEDTIME 10/03/20 03/03/25 Unknown History omeprazole 20 mg tablet,delayed 20 mg PO BEDTIME 10/03/20 06/28/21 Unknown History release budesonide-formoterol HFA 160 2 puff inhalation BID 05/15/21 03/03/25 06/22/21 07:00 History mcg-4.5 mcg/actuation aerosol inhaler (Symbicort) ibuprofen-diphenhydramine citrate 1 cap PO BEDTIME PRN 12/28/21 Unknown History 200 mg-38 mg tablet (Advil PM) Exam Exam Date and Time: 03/07/2025 Airway Mallampati Class: III TM Dist: >3cm Neck ROM: Full Loose/Missing/Broken Teeth: No Heart: rrr Lungs: cta Other: normal Assessment and Plan Assessment Anesthesia Assessment: Anesthesia Plan Discussed Final Anesthetic Review Family History of Problems with Anesthesia: No NPO: Yes ASA Class: III Final Preanesthetic Review: No Changes in Pt Med Stat, Meds/Allgs Chart Reviewed, Consent Obtained/Reviewed and Anes Risks/Benef Reviewed Patient Risk: Low Procedure Risk: Low Anesthetic Plan Anesthetic Plan: MAC: Disposition: Standard PACU
[2025-03-07 10:53] VITALS: BMI 36.8
[2025-03-07 11:00] VITALS: BP 116/78; PULSE 81; RESP 16; TEMP 36.4; O2SAT 98
[2025-03-07] MEDS: Lactated Ringers 1,000 ML 100 ML IVCONT (11:07)
[2025-03-07 12:55] VITALS: BP 140/57; PULSE 67; RESP 18; TEMP 36.1; O2SAT 97
--- NOTE | 2025-03-07 12:57 | P.BOP_ITS ---
Brief Operative Note Date of Service: 03/07/25 Pre-op diagnosis: Screening Post-op diagnosis: other (Polyps) Procedure: Colonoscopy to the cecum with bx/removal of 3 Ascending colon polyps Surgeon: Refugio Mix MD Anesthesia: MAC Was an Livestock Sales Representative used for this Procedure?: No Estimated blood loss (mL): 2.0 Pathology: other (A. Ascending colon polyps) Condition: stable Disposition: PACU
[2025-03-07 13:10] VITALS: BP 132/62; PULSE 66; RESP 20; O2SAT 97
--- NOTE | 2025-03-07 13:22 | OP_ITS ---
DATE OF SERVICE: 03/07/2025 SURGEON: Refugio Mix MD INDICATIONS: The patient presents for evaluation of personal history of colon polyps and need for colorectal cancer screening. Full consent has been obtained from her for this, including risks of bleeding and perforation. PREOPERATIVE DIAGNOSIS: POSTOPERATIVE DIAGNOSIS: PROCEDURE PERFORMED: Colonoscopy to the cecum with biopsy and removal of polyps. ESTIMATED BLOOD LOSS: COMPLICATIONS: ANESTHESIA: Medication used, monitored anesthesia care. ASSISTANTS: SPECIMENS: PREOPERATIVE DIAGNOSES: Colorectal cancer screening and personal history of colon polyps. POSTOPERATIVE DIAGNOSES: Colorectal cancer screening and personal history of colon polyps, colon polyps, diverticulosis, and internal hemorrhoids. DESCRIPTION OF PROCEDURE: The patient was placed in the left lateral decubitus position. The digital rectal exam revealed no abnormalities. The Olympus video pediatric colonoscope was entered into the rectum and advanced easily to the cecum. Once in the cecum, I did identify normal-appearing cecal pouch with appendiceal orifice and a normal-appearing ileocecal valve. The entire cecum and ileocecal valve appeared normal. The appendiceal orifice appeared normal. The scope was then slowly withdrawn assessing all mucosal surfaces carefully. Preparation was excellent after her 2 day prep. In the proximal ascending colon between folds, was an approximately 5 or 6 mm flat polyp, which was removed completely in piecemeal fashion.. Further distal in the ascending colon were 2 flat, less than 5 mm polyps, which were each biopsied and completely removed with a cold biopsy forceps as well. These were all placed in the same container. I did not visualize any other polyps, colitis, nor angiodysplasia. There was a mild amount of sigmoid diverticulosis. In the rectum, scope was retroflexed visualizing internal hemorrhoids, but no other pathology. The rectal mucosa appeared normal. Scope was straightened and withdrawn from the patient. She tolerated the procedure well and was returned to the recovery area in stable condition. IMPRESSION: 1. Colon polyps. 2. Diverticulosis. 3. Internal hemorrhoids. PLAN: The results of the biopsies will be checked. Given these relatively minimal findings and her age, I do not think she would need any further screening colonoscopies. She was advised to continue her PPI in regard to her history of reflux and previous esophageal stricture. She reports that presently her swallowing has been fine. She will see me on a p.r.n. basis. MD UZAIR Sarmiento/JERONIMO / [phone] GURJIT
[2025-03-07 13:25] VITALS: BP 132/62; PULSE 69; RESP 20; O2SAT 98
== END 2025-03-07 13:57 | disposition home or self-care (01) ==
PROVIDERS: PCP Internal Medicine; Visit Provider Internal Medicine
PROC: 0DJD8ZZ Inspection of Lower Intestinal Tract, Via Natural or Artificial Opening Endoscopic (ICD-10-PCS; CPT 45378; principal; 2025-03-07 10:30)
DX: Z12.11 Encounter for screening for malignant neoplasm of colon (principal); D12.2 Benign neoplasm of ascending colon; K57.30 Diverticulosis of large intestine without perforation or abscess without bleeding; K64.8 Other hemorrhoids; K22.2 Esophageal obstruction; K21.9 Gastro-esophageal reflux disease without esophagitis; Z79.899 Other long term (current) drug therapy
CPT/HCPCS: 45380; 88305; J2003; J2704; J3010

== ENCOUNTER 2025-04-13 11:04 | Outpatient (AMB) | payer MEDICARE, SELFPAY ==
--- OUTSIDE RECORDS SUMMARY | 2024-12-13 04:10 | XMS_ITS ---
Author Organization [facility] Address [address] [place] [phone] Care Team Providers Care Restorative Care Technician Name Role Phone Caleb Perkins M.D. Primary Care Provider Ronda Refugio Wick [phone] REASON FOR VISIT screening,serrated polyp Encounters Encounter Location Date Provider Diagnosis [facility] Outpatient [address] [place] [id number] 12/13/2024 Refugio Mix Plan Of Treatment No Information Progress Notes * CAMERON HSIEH YDOB: (79 yo F)Acc No.[id number]:12/13/2024 COLON WITH MAC Patient: CAMERON HUBER Provider: Lázaro Mix MD :1945 A ge:79 Y S ex:Female Date:12/13/2024 Address:[address] [place], [place] [phone] Pcp:Caleb Perkins M.D. Subjective: * Chief Complaints: * 1 . Screening,serrated polyp. * Medical History: Objective: * Vitals: Assessment: Plan: * Treatment: * * The named appointment provid er may or may not be the originator of this progress note, and it is not deemed complete until electronically signed by the appointment provider. Sign off status: Pending * Provider: Lázaro Mix MD Date: 0 12/13/2024 Generated for Mariangel silva/Alvarado/eTransmitting on: 1 06/13/2024 01:41 PM EST
--- OUTSIDE RECORDS SUMMARY | 2025-03-07 05:30 | XMS_ITS ---
Author Organization [facility] Address [address] [place] [id number] Care Team Providers Care Furnace Operator Name Role Phone Caleb Perkins M.D. Primary Care Provider Ronda Refugio Wick [phone] REASON FOR VISIT screening,serrated polyp Encounters Encounter Location Date Provider [place] [facility] [place] [address] [place], [place] [phone] 03/07/2025 Refugio Mix Plan Of Treatment No Information Progress Notes * CAMERON HSIEH YDOB: [birth year] (79 yo F)Acc No.[id number]:03/07/2025 COLON WITH MAC Patient: CAMERON HUBER Provider: Lázaro Mix MD :1945 A ge:79 Y S ex:Female Date:03/07/2025 Address:[address] [place], [place] [phone] Pcp:Caleb Perkins M.D. Subjective: * Chief Complaints: * 1 . Screening,serrated polyp. * Medical History: Objective: * Vitals: Assessment: Plan: * Treatment: * * The named appointment provid er may or may not be the originator of this progress note, and it is not deemed complete until electronically signed by the appointment provider. Sign off status: Pending * Provider: Lázaro Mix MD Date: Generated for Mariangel silva/Alvarado/eTcamsmitting on: 06/13/2024 01:41 PM EST
[2025-04-13 11:24] VITALS: BP 120/70; PULSE 95; O2SAT 94; BMI 37.7
--- NOTE | 2025-04-13 11:24 | MHC.OFFVIS ---
Vital Signs 04/13/25 11:24 Height 5 ft 3 in Weight 212 lb 11.937 oz BMI 37.7 BP 120/70 Blood Pressure Location Lt brachial Position Sitting Pulse 95 Pulse Source Pulse Oximeter Pulse Oximetry (%) 94 Oxygen Delivery Method Room Air Intake Visit Reasons: Asthma Diet Counselor Required: No Accompanied by: Self / Same As Patient Allergies erythromycin base Allergy (Intermediate, Verified 04/13/25 11:27) swelling, itching Penicillins Allergy (Intermediate, Verified 04/13/25 11:27) itching/swelling/rash nickel Allergy (Verified 04/13/25 11:27) Unknown HPI Comments Details: The patient is a 79-year-old woman with the family history of asthma in addition to eczema who apparently the last few months she started developing some chest tightness and wheezing after a bout of bronchitis. She has been evaluated in the ER. She was given medication including Symbicort. She has been using it daily. The medication has been helpful. However, family is have been concerned because she is still having some degree of wheezing during the daytime. She did have a follow-up with primary care. She did have a chest x-ray demonstrating no acute disease. The patient did have a bedside spirometry apparently without any significant findings. However because her ongoing symptoms the patient is referred to Pulmonary. The patient does state that she does have animals in the household. There is a dog and a cat that sleeps in her bed. She also states that there is mold in the basement. Denies any exposure to any other fumes or toxins. Denies any nasal polyps. The patient does have history of eczema. 06/28/2021 the patient is here for a pulmonary follow-up visit. Overall the patient has been doing very well on the Symbicort. She does use the medication as prescribed. She does have symptoms of chest tightness and dyspnea. She does not have a rescue inhaler at this time. The patient did undergo pulmonary function studies which I personally reviewed demonstrating an obstructive physiology consistent mild COPD. The patient will benefit from additional albuterol therapies and she does respond very well to the bronchodilators. In the office the patient was given albuterol treatments any did help her symptoms. Therefore she will take a nebulizer with her and will provide her with albuterol so she can use at home. In the meantime she continues with the allergy therapy. soon 02/19/2022 the patient is here for a pulmonary follow-up visit. Overall the patient has been doing well. She did get her nebulizer. However, for some reason the albuterol was not covered. She did not call the office however. Therefore, she had not been able to use her nebulizer. She still has a rescue inhaler that she can use as needed. Otherwise she has been doing well. Still having some dyspnea on exertion. We did review her last chest x-ray that was back in October 2020 demonstrating no acute disease. Will continue with current respiratory therapy. I will have another prescription sent to the pharmacy for the albuterol and will have a nurse follow-up with it. 03/31/2023 the patient is here for a pulmonary follow-up visit. Overall the patient continues to do well. She has been losing weight after her orthopedic surgery. She is going to be starting going to the [facility] and using a recumbent bike. Overall she is motivated. As far as her asthma seems to be in good control. Her PFTs were done back in 2021 demonstrating mild obstruction and a last chest x-ray was on 2020 demonstrating no acute disease. The patient has been using Symbicort but now she is as needed. She continues with a low-sodium diet. The patient will continue with current respiratory therapy. Plan to follow-up in a year's time with PFTs and an x-ray. If the patient develops any worsening symptoms prior to that she will call for an earlier assessment. 12/21/2024 the patient is here for a pulmonary follow-up visit. Overall she is doing okay although she complains of increasing dyspnea on exertion. She has been on the Symbicort. She no longer has been taking the Singulair since she could not get it refilled. She has noticed that with the heat in the humidity she has had a hard time with the breathing. More shortness of breath with minimal activity. Moderate severity. She does have wheezing on exam. The patient did have PFTs back in 2023 which we personally reviewed. Appears that she does have a mild obstruction consistent with COPD. Will go ahead and optimize her respiratory medicines by switching her from Symbicort to Breztri. She also will restart Singulair. Will plan to follow-up in the fall to see how she is responding to the therapy. If she has any issues prior to the appointment she can always call for further recommendations. 04/13/2025 the patient is here for pulmonary follow-up visit. Overall the patient has been doing well. She continues uses Symbicort with good response. She has not had to use her rescue inhaler. She never had to switch over to Breztri which is reassuring. The patient did have worsening respiratory symptoms sometime in January. She had a worsening cough malaise. She went to the ER and she was diagnosed with COVID-19. The patient had a chest x-ray with some subtle changes to the left base likely related to the COVID infection. But overall she did take a course of prednisone and her symptoms improved and she feels perfectly fine now. She is back to her baseline. Therefore will continue with the current respiratory therapy the patient will follow-up in a year's time. If any issues arise she can always call for an earlier assessment or recommendations. [facility] Medical History Abnormal colonoscopy Hiatal hernia HLD (hyperlipidemia) Asthma-COPD overlap syndrome COVID-19 vaccine series completed Bilateral lower extremity edema Eosinophilia Asthma History of positive PPD Hypothyroid GERD (gastroesophageal reflux disease) History of anxiety Elevated cholesterol Surgical History History of left hip replacement (2018) Hx of cataract extraction History of total replacement of right hip Hx of hysterectomy (1991) Hx of cholecystectomy (1996) Social History Are you a primary direct care worker to a significant other at home: No Do you presently have visiting nurse or other home services: No Patient Tobacco Use Status: Former Tobacco user Tobacco use type: Cigarette Years Smoked: 40 Advance Directives Date on File: 07/12/15 Review of Systems Const Denies night sweats ENT Denies change in voice, Denies lip swelling, Denies mouth pain, Reports nasal congestion, Reports nasal discharge and Denies tongue swelling Card Denies chest pain and Reports dyspnea on exertion Resp Reports cough, Reports dyspnea on exertion and Denies wheezing GI Denies abdominal pain Musc Denies no additional complaints Neuro Denies Neuro-related abnormal movements Psych Denies no additional complaints Ian/Lymph Denies easy bleeding and Denies lymphadenopathy Aller/Immun Denies lip swelling, Denies tongue swelling and Denies wheezing Physical Exam Vital Signs: Last Vital Signs Pulse 95 04/13/25 11:24 BP 120/70 04/13/25 11:24 Pulse Ox 94 04/13/25 11:24 Oxygen Delivery Method Room Air 04/13/25 11:24 BMI result Body Mass Index 37.7 Const General: alert Neck Neck: Yes normal visual inspection, Yes full ROM and Yes no lymphadenopathy Chest Chest palpation & inspection: normal inspection of the chest Resp Auscultation: no wheezes and diminished lung sounds Cardio Rate: regular rate Rhythm: regular rhythm Heart sounds: S1 normal heart sound present and S2 normal heart sound present GI Palpation (GI): Soft to palpation and nontender Auscultation: normal bowel sounds Skin General skin exam: rashes and/or lesions noted Extrem General: No clubbing, No cyanosis and Yes edema Assessment & Plan Assessment & Plan (1) Asthma: Code(s): J45.909 - Unspecified asthma, uncomplicated Category: Medical Qualifiers: Asthma complication type: uncomplicated Asthma persistence: persistent Asthma severity: moderate Qualified Code(s): J45.40 - Moderate persistent asthma, uncomplicated (2) Eosinophilia: Code(s): D72.10 - Eosinophilia, unspecified Category: Medical Qualifiers: Eosinophilia type: unspecified eosinophilia Qualified Code(s): D72.10 - Eosinophilia, unspecified (3) Asthma-COPD overlap syndrome: Code(s): J44.9 - Chronic obstructive pulmonary disease, unspecified Category: Medical Plan Symbicort Short-acting beta agonist as needed nebulizer continue singular at night low-sodium diet follow-up 8-12 months Coding Level of Care Code Est Pt Level 4 (09314) Complex EM visit Add On G2211 Diagnoses Moderate persistent asthma without complication J45.40 Asthma complication type: uncomplicated Asthma persistence: persistent Asthma severity: moderate Eosinophilia, unspecified type D72.10 Eosinophilia type: unspecified eosinophilia Asthma-COPD overlap syndrome J44.9 Time Spent (min) 16
--- OUTSIDE RECORDS SUMMARY | 2025-04-13 13:41 | XMS_ITS | Patient Health Record ---
Author Organization [facility] Address [address] [place] [address] Care Team Providers Care Product Marketing Manager Name Role Phone Caleb Perkins M.D. Primary Care Provider Refugio Valdez [phone] Allergies Allergen (clinical drug ingredient) Drug/Non Drug Allergy documented on EMR Reaction Allergy Type Onset Date Status Penicillin Itching Drug Allergy Active erythromycin Erythromycin Unknown Drug Allergy A ctive nickel Nickel Unknown Allergy Active Results Component Value Reference Range Notes Pathology (Not yet reviewed by provider) Interpretation: Performing Lab:[facility], [address] [place] [id number] Notes/Report: Reason For Referral No Information Medications Medication SIG (Take, Route, Frequency, Duration) Notes Start Date End Date Status Citalopram Hydrobromide 20 MG Oral; Duration: 90 Active Levothyroxine Sodium 125 MCG TAKE 1 TABLET BY MOUTH DAILY Oral; Duration: 30 Active Symbicort 160-4.5 MCG/ACT Inhalation; Du ration: 30 Active Tylenol 325 MG 1 tablet [...] Status Risk Notes Problem Colon cancer screening (826556373) Colon cancer screening (Z12.11) Active confirmed Problem Screening for malignant neoplasm of colon (697226693) Encounter for screening for malignant neoplasm of colon (Z12.11) Active confirmed Problem Dysphagia (48334783) Dysphagia (R13.10) Active confirmed Problem Esophageal stricture (03298971) Esophageal stricture (K22.2) Active confirmed Problem Hiatal hernia (85982633) Hiatal hernia (K44.9) Active confirmed Problem Diverticulosis of colon (884614658) Diverticulosis of colon (K57.30) Active confirmed Problem Serrated polyp of colon (954883763) Serrated polyp of colon (K63.5) Active confirmed Problem Gastroesophageal reflux disease (816749221) Gastroesophageal reflux disease, unspecified whether esophagitis present (K21.9) Active confirmed Problem Gastroesophageal reflux disease with esophagitis (disorder) (010268993) Gastro-esophageal reflux disease with esophagitis, without bleeding (K21.00) Active confirmed Problem Esophageal dysphagia (51956155) Esophageal dysphagia (R13.19) Active confirmed Vital Signs Blood pressure diastolic 11 mm Hg 09/14/2024 Height 63 in 09/14/2024 Blood pressure systolic 111 mm Hg 09/14/2024 Weight 213 lbs 09/14/2024 BMI 37.73 kg/m2 09/14/2024 Procedures Procedure Date Ordered Date Performed Result Body Sit e COLONOSCOPY 09/14/2024 N/A Encounters Encounter Location Date Provider Diagnosis [facility] [place] Out[place] [address] [place], [place] [phone] 03/07/2025 Refugio Mix [facility] [address] [place] [address] 09/14/2024 Refugio Mix Esophageal stricture K22.2 ; [...] Test Test Name Order Date COLONOSCOPY 09/14/2024 Pathology 03/07/2025 Future Test Test Name Order Date UPPER GI ENDOSCOPY BALL[place]ON DILATION OF ESOPH 05/31/2021 COLONOSCOPY 05/31/2021 Insurance Providers Payer Name Payer Address Payer Phone Subscriber Number Group Number Insured Name Patient Relationship to Insured Coverage Start Date Coverage End Date MEDICARE OF [place] [address] [facility] [address] [id number] SANDRA HSIEH Self - patient is the insured [employer] ATT[employer] CLAIMS [address] [place] [address] [id number] [id number] [id number] Self - patient is the insured Medical (General) History Medical History History ICD Code Denies UT,DM,CVA,renal disease GERD Hypothyroidism Hyperlipidemia Anxiety Asthma-seeing Dr. Aden Lichen sclerosis of perineal area--sees a CRM TECHNICAL LEAD for periodic biopsies Screening colonoscopy 06/2021 with [...]
--- OUTSIDE RECORDS SUMMARY | 2025-04-13 13:41 | XMS_ITS | Data Portability ---
Author Organization [facility], OFFICE Address [address], [address] [address] Assessment Encounter Date Assessment Date Assessment LastModified by Organization Details LastModified Time 07/24/2018 07/24/2018 We discussed the options related to her treatment. 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 Clearly right hip arthroplasty would be a reasonable treatment alternative for her. We discussed the issues related to total hip arthroplasty in a lot of detail today including the preoperative process, the operative techniques, less invasive techniques, computer-assisted techniques, the types of implants, the types of bearings, and the perioperative risks. In addition, we discussed the typical hospitalization course following surgery and reasonable expectations for recovery, outcome, activity level, and long-term followup. She is interested in proceeding, and we will begin to make arrangements. sbm Not available 07/24/2018 14:13:51 12/23/2018 12/23/2018 Sandra has recovered rapidly following elective RTHR. She's going to progress to reasonable activities as tolerated. sbm Not available 12/23/2018 16:23:00 10/21/2022 10/21/2022 We discussed the issues related to her treatment. Mrs. Espinoza has radiographic evidence of end stage arthrosis of the left hip as demonstrated by severe joint space narrowing, subchondral cysts, subchondral sclerosis and periarticular osteophytes with a medial and coxa profunda failure pattern. She has a functional disability from the arthritis. Conservative therapy in the form of NSAIDs and flexibility and muscle strengthening exercises have been insufficiently helpful. Total hip arthroplasty is therefore appropriately indicated. We discussed the issues related to total hip arthroplasty in a lot of detail today including the preoperative process, the operative techniques, less invasive techniques, computer-assisted techniques, the types of implants, and the perioperative risks. In addition, we discussed the typical course following surgery and reasonable expectations for recovery, outcome, activity level, and long-term followup. She is interested in proceeding, and we will begin to make arrangements. This visit was conducted as a real-time telehealth interactive video visit. She was identified and consented to this telehealth visit. I spent a total of 20 minutes during this encounter. Greater than 50% of the time was devoted to counseling and coordinating care. This included reviewing records and pertinent studies, discussing diagnostic evaluation and workup, planning therapeutic interventions, and formulating the future disposition of care. sbm Not available 10/21/2022 09:00:51 02/17/2023 02/17/2023 Sandra is progressing well following elective LTHR but she isn't yet fully recovered. She's going to continue to use external support and otherwise progress as tolerated provided she no pain and no limp. We plan to reevaluate in about 4 weeks. This visit was conducted as a real-time telehealth interactive video visit. She was identified and consented to this telehealth visit. I spent a total of 15 minutes during this encounter. Greater than 50% of the time was devoted to counseling and coordinating care. This included reviewing records and pertinent studies, discussing diagnostic evaluation and workup, planning therapeutic interventions, and formulating the future disposition of care. sbm Not available 02/17/2023 16:34:05 Plan of Treatment Reminders Order Date Submit Date Provider Last Modified By Organization Details Last Modified Time Details Appointments None record ed. Lab None record ed. Referral None record ed. Procedures None record ed. Surgeries None record ed. Imaging None record ed. Medication Orders None record ed. Patient TargetsNo targets recorded. Patient InstructionsNo instructions recorded. Reason for Referral None Reported. Problems No Known Problems Procedures Surgical History Date Name Laterality Status Provider Name and Address Organization Details Recorded Time 12/25/19 23 total replacement of left hip joint completed Jess Fuentes [place] - [facility] 02/17/2023 08:22:37 10/31/19 19 Total hip arthroplasty completed Jess Fuentes MA - [facility] 12/23/2018 14:59:11 Hysterectomy completed Matheus Lopez MD [address] [place], [place] [address], [place], [address], [place] - [facility] 07/24/2018 14:09:48 Cholecystectomy completed Matheus Lopez MD [address], [place], [address], [place] - [facility] 07/24/2018 14:10:02 Imaging Results None recorded. Procedure Notes None recorded. Medical Equipment None Reported. Allergies Allergen ID Allergen Name Allergen Category Reaction Reaction Severity Criticality Documentation Date Start Date Code Code System Note Provider Name and Address Organization Details Recorded Time 9135 nickel environme nt Not available Not available Not available 07/24/2018 94737 29 RxNorm Matheus Lopez MD [address],[facility] [address], [place], [address], [place] - [facility] 9 14:07:37 9136 Product containin g penicilli n (product) medicatio n Not available Not available Not available 07/24/2018 99219 8001 SNOMED Matheus Lopez MD [address],[facility] [address], [place], [address], [place] - [facility] 9 14:08:01 Medications Name Sig Start Date Stop Date Status Note LastModified by Organization Details LastModified Time celecoxib 200 mg capsule Pre op: Take 2 tablets po the night before surgery and 1 tablet po the morning of surgery. Post op: One po qd active Not Available Not Available No t Available amoxicillin 500 mg capsule Take 4 capsule(s) 1hr prior to dental work 2018 active Not Available Not Available Not Avai lable albuterol sulfate 2.5 mg/3 mL (0.083 %) solution for nebulization USE 1 VIAL VIA NEBULIZER EVERY DAY active Not Available Not Available No t Available hydrocodone 5 mg-acetamino phen 325 mg tablet active Not Available Not Available Not Available meloxicam 15 mg tablet TAKE 1 TABLET BY MOUTH EVERY DAY active Not Available Not Available No t Available clindamycin HCl 150 mg capsule TAKE 4 CAPSULES BY MOUTH 1 HOUR PRIOR TO DENTAL APPOINTMENT active Not Available Not Available Not Available omeprazole 40 mg capsule,alexander yed release TAKE 1 CAPSULE BY MOUTH EVERY MORNING active Not Available Not Available No t Available tramadol 50 mg tablet TAKE 1 TABLET BY MOUTH EVERY 6 HOURS NEEDED FOR PAIN active Not Available Not Available No t Available simvastatin 40 mg tablet active Not Available Not Available Not Available hydromorphon e 2 mg tablet active Not Available Not Available Not Available citalopram 20 mg tablet TAKE 1 TABLET BY MOUTH EVERY DAY active Not Available Not Available No t Available levothyroxin e 125 mcg tablet TAKE 1 TABLET BY MOUTH DAILY active Not Available Not Available Not Available montelukast 10 mg tablet TAKE 1 TABLET BY MOUTH AT BEDTIME active Not Available Not Available No t Available zolpidem 5 mg tablet active Not Available Not Available No t Available ergocalcifer ol (vitamin D2) 1,250 mcg (50,000 unit) capsule TK 1 C PO 1 TIME A WK active Not Available Not Available No t Available mometasone 0.1 % topical cream APPLY THIN LAYER TOPICALLY TO THE AFFECTED AREA 2 TIMES A WEEK active Not Available Not Available No t Available Symbicort 160 mcg-4.5 mcg/actuatio n HFA aerosol inhaler INHALE 2 INHALATIONS INTO THE LUNGS 2 TIMES A DAY active Not Available Not Available Not Available Eliquis 2.5 mg tablet TAKE 1 TABLET BY MOUTH TWICE DAILY AFTER SURGERY active Not Available Not Available No t Available Paxlovid 300 mg (150 mg x 2)-100 mg tablets in a dose pack TAKE 3 TABLETS BY MOUTH TWICE DAILY FOR 5 DAYS active Not Available Not Available No t Available Vitals Date Recorded Body height Body mass index (BMI) Body weight Systolic And Diastolic Provider Name and Address Organization Details Last Updated DateTime 07/24/2018 160.02 cm 36.7 kg/m2 74297.62 g 111/66 mm[Hg] Jess Santiago [facility] 07/24/2018 13:14:31 Date Recorded Body height Body mass index (BMI) Body weight Provider Name and Address Organization Details Last Updated DateTime 10/21/2022 160.02 cm 37.2 kg/m2 74309.4 g Jess Santiago [facility] 10/21/2022 08:25:55 Date Recorded Body height Body mass index (BMI) Body weight Systolic And Diastolic Provider Name and Address Organization Details Last Updated DateTime 12/23/2018 160.02 cm 36.7 kg/m2 27522.62 g 117/68 mm[Hg] Jess Fuentes MA - [facility] 12/23/2018 14:58:27 Date Recorded Body height Body mass index (BMI) Body weight Provider Name and Address Organization Details Last Updated DateTime 02/17/2023 160.02 cm 1.8 kg/m2 4535.92 g Jess Fuentes [place] - [facility] 02/17/2023 08:13:08 Social History Question Answer Notes LastModified by Organizat ion Details LastModified Time Tobacco Smoking Status Former Smoker Matheus Lopez MD [address] [place] [address],[facility] [address], [place], [address], [place] - [facility] 07/24/2018 14:09:26 Do You Have An Advance Directive? Yes Information not available 10/21/2022 Do You Have A Medical Power Of Ultrasound Tester? Yes [email or web address] Information not available 10/21/2022 What Was The Date Of Your Most Recent Tobacco Screening? 10/21/2022 [email or web address] Information not available 10/21/2022 How Much Tobacco Do You Smoke? No [email or web address] Information not available 12/23/2018 Has Tobacco Cessation Counseling Been Provided? No [email or web address] Information not available 10/21/2022 How Many Years Have You Smoked Tobacco? 40 [email or web address] Information not available 12/23/2018 Sex: Unknown Functional Status Question Answer Note LastModified by Organization D etails LastModified Time Do you or have you ever used any other forms of tobacco or nicotine? No [email or web address] Information not available 10/21/2022 Are you able to care for yourself independently? Yes [email or web address] Information not available 10/21/2022 Mental Status None recorded. Family History Relationship Description Onset Age of this Age Resolved Age Notes LastModified by Organization Details LastModified Time Father Idiopathic pulmonary arterial hypertension [email or web address] Not available 14:09:03 Mother Chronic obstructive pulmonary disease sbm Not available 2018 14:09:19 Medical History Condition Response Coronary Artery Disease N Anxiety/Depression N Gout N Blood Transfusion N Hernia N COPD N Pacemaker N Orthotics N Arthritis N Blood Clot N Cancer N Stroke N High Cholesterol Y Liver Disease N Rheumatoid Arthritis N Kidney Disease N Heart Problems N Migraines N Thyroid Problems Y Anemia N Heart Attack ([place]) N Ulcers N Diabetes N Bleeding Disorder N Seizures/Epilepsy N Tuberculosis N AIDS/HIV N Asthma N Peripheral Vascular Disease N Hepatitis N Pulmonary Embolism N Hypertension N Osteoporosis N Gynecological HistoryNo gynecological history recorded. Obstetrics History GPAL:G 0 P 0 0 0 0 Past Encounters Encounter ID Performer Location Encounter Start Date Encounter Closed Date Diagnosis/Indication Diagnosis SNOMED-CT Code Diagnosis ICD10 Code Diagnosis IMO Codes Diagnosis Note [id number] Matheus Lopez MD OFFICE [address] [facility], [address] [address] 07/24/2018 12:01:53 07/24/2018 17:35:38 [id number] Matheus Lopez MD OFFICE [address] [facility], [address] [address] 12/23/2018 12:56:14 12/23/2018 16:59:24 [id number] Matheus Lopez MD [facility] [address] [place] [address] 10/21/2022 08:25:03 10/28/2022 16:29:00 [id number] Matheus Lopez MD [facility] [address] [place] [address] 02/17/2023 08:11:56 02/20/2023 12:18:50 Health Concerns Section Related Observation LastModified by Organization Detai ls LastModified Time None Recorded Concern Status LastModified by Organization Details LastModified Time None Recorded Advance Directives Directive Y: Payers Insurance Date Sequence Insurance Name Policy Number Policy Wagner Covered Member ID Wagner Member ID Guarantor Name 03/23/2023 1 [place] [employer] Sandra Y Alexis [id number] Sandra Alexis 03/24/2023 2 [place] [id number] Sandra Y Alexis [id number] Sandra Alexis Notes Date Note Type Note Provider Name and Address Organization Details Recorded Time 07/24/2018 text/html Hip(s) AthenaRep orted by PatientHPIFor location, patient reportsright,groin,th igh, andbuttocks. For severity, patient reportssevere. For duration, patient reports1 years. For alleviating factors, patient reportsrest. For aggravating factors, patient reportsstanding,walki ng,exercise, andgoing from sit to stand. For associated symptoms, patient reportsno weakness,no numbness,no tingling,no swelling,no redness,no warmth,no ecchymosis,no catching/locking,no popping/clicking,no buckling,no grinding,no instability,no radiation down leg,no drainage,no fever,no chills,no weight loss, andno change in bowel/bladder habits. For prior imaging, patient reportsx ray. For previous pt, patient reportsdid not help.ROS as noted in the HPI Matheus Lopez MD 125 [facility] [address], [place], [address], [place] - [facility] 07/24/2018 14:13:55 12/23/2018 text/html Hip(s) AthenaRep orted by PatientHPIFor location, patient reportsrightandgroin. For severity, patient reportsslight. For alleviating factors, patient reportsstretching. For aggravating factors, patient reportscannot identify. For associated symptoms, patient reportsno weakness,no numbness,no tingling,no swelling,no redness,no warmth,no ecchymosis,no catching/locking,no popping/clicking,no buckling,no grinding,no instability,no radiation down leg,no drainage,no fever,no chills,no weight loss, andno change in bowel/bladder habits. For prior imaging, patient reportsx rayandct scan. For previous pt, patient reportshelped significantly.ROS as noted in the HPI Matheus Lopez MD [address] [facility] [address],[facility] [address], [place], [address], [place] - [facility] 12/23/2018 16:23:03 10/21/2022 text/html Hip(s) AthenaRep orted by PatientHPIFor location, patient reportsleft,groin, andbuttocks. For severity, patient reportsmoderate. For alleviating factors, patient reportsrest. For aggravating factors, patient reportswalking,bendin g/squatting,weightbea ring,exercise, andgoing from sit to stand. For associated symptoms, patient reportsno weakness,no numbness,no tingling,no swelling,no redness,no warmth,no ecchymosis,no catching/locking,no popping/clicking,no buckling,no grinding,no instability,no radiation down leg,no drainage,no fever,no chills,no weight loss, andno change in bowel/bladder habits. For prior imaging, patient reportsx rayandct scan. For previous pt, patient reportsdid not help.ROS as noted in the [facility] Matheus Lopez MD [address], [place], [address], [place] - [facility]Ass[facility] and [facility] 10/21/2022 09:01:02 02/17/2023 text/html Hip(s) AthenaRep orted by PatientHPIFor location, patient reportsleft,groin, andthigh. For severity, patient reportsmild. For alleviating factors, patient reportsrest. For aggravating factors, patient reportsexercise. For associated symptoms, patient reportsno weakness,no numbness,no tingling,no swelling,no redness,no warmth,no ecchymosis,no catching/locking,no popping/clicking,no buckling,no grinding,no instability,no radiation down leg,no drainage,no fever,no chills,no weight loss, andno change in bowel/bladder habits. For prior imaging, patient reportsx rayandct scan. For previous pt, patient reportshelped significantly.ROS as noted in the HPI Matheus Lopez MD [address], [place], [address], [place] - [facility] 02/17/2023 16:34:13 OBGyn Episode No OBEpisode recorded.
--- OUTSIDE RECORDS SUMMARY | 2025-04-13 13:41 | XMS_ITS | Clinical Summary ---
Author Organization [address] [place] [address] Building Address [address] [place] [address] Phone Care Team Providers Care Continuity Tester Name Role Phone Caleb Perkins MD Primary [...] weeks, then MWF thereafter 30 g 3 025 Active budesonide-formot Gerson (SYMBICORT) 160-4.5 mcg/actuation inhaler INHALE 2 INHALATIONS INTO THE LUNGS 2 TIMES A DAY 51 g 025 Active citalopram (CeleXA) 20 mg tablet Take 1 tablet (20 mg total) by mouth 1 (one) time each day. 90 tablet 3 025 Active levothyroxine (SYNTHROID, LEVOTHROID) 112 mcg tabletIndications :Acquired hypothyroidism TAKE 1 TABLET BY MOUTH DAILY FOR 5 DAYS A WEEK 90 tablet 025 Active levothyroxine (SYNTHROID, LEVOTHROID) 112 mcg tabletIndications :Acquired hypothyroidism Take 1 tablet (112 mcg total) by mouth See administration instructions. TAKE 1 TABLET BY MOUTH DAILY FOR 5 DAYS A WEEK 90 tablet 025 2024 Discontinued Active Problems Problem Noted Date Diagnosed Date Anxiety 04/06/2024 Diverticulosis of colon 05/08/2022 Gastro-esophageal reflux dis ease with esophagitis, without bleeding 05/08/2022 Simple chronic bronchitis (CMS/[facility] V24, CMS/HCC V28) 10/31/2021 Lichen sclerosus 09/05/2020 [...] update Hyperlipidemia 08/23/2005 Overview (04/06/2024): 10/11-mibi at [place] negative for ischemia Assessment & Plan (05/19/2024 1:03 PM EST): -stable Hypothyroidism 08/23/2005 Assessment & Plan (05/19/2024 1:03 PM EST): -continue synthroid 112 mcg daily 5 days a week Orders: Lipid panel; Future CBC and differential; Future Comprehensive metabolic panel; Future Thyroid stimulating hormone; Future Encounters Date Type Department Care Team Description 02/23/2025 Telephone Internal Medicine - Jairo Leonidas 2 [facility] [address] [place] [address] Jeanie Sanchez MA 02/18/2025 11:30 AM EDT Office Visit Internal Medicine - Jairo Lauren [address] [place], [place] [address] Caleb Perkins MD Obstructive sleep apnea syndrome (Primary Dx) from Last 3 Months Immunizations Immunization Administration Dates Next Due Influenza Quadravalent, 0.5m l (Fluad) 65yo and older 05/07/2021 Influenza Quadravalent, 0.5m l (Fluzone High-dose) 65yo and older 05/12/2023,03/27/2022,04/03/2017 Influenza trivalent, with pr eservative (Fluzone; Afluria) 6mo and older 03/02/2021 Joost SARS-CoV-2 COVID-19, mRNA, LNP-S, preservative free 01/03/2021 [...] 2 Alive Father Maternal Grandfather Maternal Grandmother DC age mid 70 Mother Paternal Grandfather Paternal [...] Office Visit Internal Medicine - Jairo Lauren [address] [place] [address] [address] [place] [address] Caleb Perkins MD 2 [place] [address] Health Maintenance Due Date Last Done Comments [...] Maintenance Results * External clinical lab (02/18/2025) us Provider [facility] LAB BLOOD ORDERABLES Fin al Result * Falls Risk Assessment (05/12/2023) Falls Risk Assessment abstracted Historical Provider HEALTH MAINTENANCE Final Result * Depression Screening (05/12/2023) Depression Screening abstracted Historical Provider HEALTH MAINTENANCE Final Result * Lipid panel (05/12/2023) Triglycerides 0 mg/dL Comment:no interpretation Cholesterol 0 mg/dL Comment:n interpretation HDL 0 mg/dL Comment:no interpretation LDL Cholesterol 0 mg/dL Comment:no interpretation Blood Venous blood specimen / Unknown Historical Provider LAB BLOOD ORDERABLES Breanne l Result from Last 3 Months or Most Recently Relevant to Health Maintenance Insurance MEDICARE [facility] Care Teams Continuity Tester Relationship Specialty Start Date End Date Caleb Perkins MD [address] [place] [address] PCP - General 06/09/23
--- OUTSIDE RECORDS SUMMARY | 2025-04-13 13:41 | XMS_ITS | Data Portability ---
Author Organization [place] - [facility], JAMAL [facility] Address [address] [place] [address] Care Team Providers Care Foreign Language Stenographer Name Role Phone HOWARD GOMEZ JOANNE Primary Care Provider [phone] Assessment Encounter Date Assessment Date Assessment LastModified by Organization Details LastModified Time 04/10/2022 04/10/2022 Impression: Persistently painful right PT tendon despite 8 weeks of CAM Walker immobilization. Plan: Reviewed findings with the patient. Reviewed options at this point which would include surgery or PRP injection. She clearly would like to avoid surgery if possible. We did review potential benefit of PRP as well as the recovery time and success/failure rates. She is interested in this. Literature dispensed. She will think about this and get back to us if she would like to pursue scheduling. The visit was 20 minutes in length and included review of the medical record before the encounter, [id number] time, communicating care to other family members or providers when necessary, ordering tests/studies when necessary, and documenting the visit in the medical record. Review of prior internal and external notes were performed, as well as review of prior test results and studies performed, when available. 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 Plan: Reviewed findings with the patient. Injected 2 and half cc of PRP into the inframalleolar course of the right PT tendon. We will keep the cam walker for the next 4 weeks. She may gradually wean out of the boot into her ankle brace at that point, as symptoms allow. Return in 8 weeks for follow-up. The visit was 20 minutes in length and included review of the medical record before the encounter, [id number] time, communicating care to other family members or providers when necessary, ordering tests/studies when necessary, and documenting the visit in the medical record. Review of prior internal and external notes were performed, as well as review of prior test results and studies performed, when available. [email or web address] Not available 06/28/2022 12:02:52 08/23/2022 08/23/2022 Impression: Improving right PT tendinosis status post PRP injection. Plan: Reviewed findings with the patient. Will recommend she continue to use the ankle brace for another month and then she may gradually wean out of it into a pair of custom orthotics we will have fabricated for her. Reviewed appropriate shoe gear. Return in 6 weeks for follow-up. The visit was 20 minutes in length and included review of the medical record before the encounter, [id number]-fb-[id number] time, communicating care to other family members or providers when necessary, ordering tests/studies when necessary, and documenting the visit in the medical record. Review of prior internal and external notes were performed, as well as review of prior test results and studies performed, when available. [email or web address] Not available 08/23/2022 12:08:43 10/03/2022 10/03/2022 Impression: Righ t tibialis posterior tendinosis with excellent response to PRP injection. Plan: Reviewed findings with the patient. She may discontinue use of the ankle brace except when doing any extended walking or mowing her lawn. Continue long-term use of the orthotic and stability sneakers. She will follow-up on an as-needed basis. The visit was 20 minutes in length and included review of the medical record before the encounter, [id number]-xl-alsp time, communicating care to other family members or providers when necessary, ordering tests/studies when necessary, and documenting the visit in the medical record. Review of prior internal and external notes were performed, as well as review of prior test results and studies performed, when available. Not available 10/03/2022 13:25:00 Plan of Treatment Reminders Order Date Submit Date Provider Last Modified By Organization Details Last Modified Time Details Appointments None recorded. Lab None recorded. Referral physical therapist referral - Decrease pain/infl ammation; increase strength 2021 022 [email or web address] Not available 14:44:53 Procedures None recorded. Surgeries None recorded. Imaging None recorded. Medication Orders None recorded. Patient TargetsNo targets recorded. Patient Instructions Encounter Date Encounter Id Patient Instructions Last Modified By Organization Details Last Modified Time 06/28/2022 [id number] Blood draw for PRP procedure for Dr. Collazo was done today [email or web address] Not available 06/28/2022 16:20:49 Reason for Referral Physical Therapist Referral for Tibialis posterior tendinitis Decrease pain/inflammation; increase strength Referring Physician: Dante Molina, Podiatry, Encounter Date: 04/10/2022 Procedures Surgical History Date Name Laterality Status Provider Name and Address Organization Details Recorded Time 06/28/19 23 LDD PRP completed DARRELL STEWART [address] [place] [address], [phone] 06/28/2022 16:20:38 10/30/19 19 Joint Replacement completed Jess Bella [facility] 01/25/2022 10:04:38 Imaging Results None recorded. Procedure Notes None recorded. Medical Equipment None Reported. Allergies Allergen ID Allergen Name Allergen Category Reaction Reaction Severity Criticality Documentation Date Start Date Code Code System Note Provider Name and Address Organization Details Recorded Time 883637 Penicilli n Not available Not available Not available Not available 01/25/2022 93608 RxNorm Jess Shayne [facility] 2 10:04:43 042106 clarithro mycin medicatio n Not available Not available Not available 01/25/2022 27933 RxNorm Jess Shayne [facility] 2 10:11:58 228866 nickel environme nt Not available Not available Not available 01/25/2022 46017 29 RxNorm Jess Adilenemojoe [facility] 2 10:12:08 Medications Name Sig Start Date Stop Date Status Note LastModified by Organization Details LastModified Time albuterol sulfate 2.5 mg/3 mL (0.083 %) solution for nebulizatio n USE 1 VIAL VIA NEBULIZER EVERY DAY active Not Available Not Available No t Available meloxicam 15 mg tablet TAKE 1 TABLET BY MOUTH EVERY DAY active Not Available Not Available No t Available omeprazole 40 mg capsule,del ayed release TAKE 1 CAPSULE BY MOUTH EVERY MORNING active Not Available Not Available No t Available simvastatin 40 mg tablet active Not Available Not Available Not Available citalopram 20 mg tablet active Not Available Not Available Not Available levothyroxi ne 125 mcg tablet TAKE 1 TABLET BY MOUTH DAILY active Not Available Not Available No t Available montelukast 10 mg tablet TAKE 1 TABLET BY MOUTH AT BEDTIME active Not Available Not Available No t Available zolpidem 5 mg tablet 01/25 completed Not Available Not Available Not Available mometasone 0.1 % topical cream active Not Available Not Available Not Available Symbicort 160 mcg-4.5 mcg/actuati on HFA aerosol inhaler INHALE 2 INHALATIO NS INTO THE LUNGS 2 TIMES A DAY active Not Available Not Available No t Available Paxlovid 300 mg (150 mg x 2)-100 mg tablets in a dose pack TAKE 3 TABLETS BY MOUTH TWICE DAILY FOR 5 DAYS active Not Available Not Available No t Available Vitals Date Recorded Body height Body mass index (BMI) Body weight Pain severity - 0-10 verbal numeric rating [Score] - Reported Provider Name and Address Organization Details Last Updated DateTime 06/28/2022 160.02 cm 36.7 kg/m2 61819.62 g 1 Penny Colon [facility] 06/28/2022 11:33:23 Date Recorded Body height Body mass index (BMI) Body weight Pain severity - 0-10 verbal numeric rating [Score] - Reported Provider Name and Address Organization Details Last Updated DateTime 08/23/2022 160.02 cm 36.7 kg/m2 20439.62 g 0 Penny Colon [facility] 08/23/2022 11:40:09 Date Recorded Body height Body mass index (BMI) Body weight Pain severity - 0-10 verbal numeric rating [Score] - Reported Provider Name and Address Organization Details Last Updated DateTime 10/03/2022 160.02 cm 36.7 kg/m2 37526.62 g 0 Boris Shi [facility] 10/03/2022 13:07:29 Date Recorded Body height Body mass index (BMI) Body weight Pain severity - 0-10 verbal numeric rating [Score] - Reported Provider Name and Address Organization Details Last Updated DateTime 04/10/2022 160.02 cm 36.7 kg/m2 76073.62 g 3 Jess Bella [facility] 04/10/2022 12:54:51 Social History Question Answer Notes LastModified by Organizat ion Details LastModified Time Tobacco Smoking Status Former Smoker Jess Bella null, [facility] 01/25/2022 10:13:01 Are You Deaf Or Do You Have Serious Difficulty Hearing? No Information not available 01/25/2022 Which Illicit Or Recreational Drugs Have You Used? 0 [email or web address] Information not available 06/28/2022 When Did You Quit Smoking? 16+yearssin kash [email or web address] Information not available 09/17/2022 Which Of Your Hands Is Dominant? Right Information not available 04/10/2022 At What Age Did You Start Smoking Tobacco? 18 Information not available 04/10/2022 How Much Tobacco Do You Smoke? 1 PPD Information not available 04/10/2022 Sex: Unknown Functional Status Question Answer Note LastModified by Organizat ion Details LastModified Time What is your level of alcohol consumption? Occasional Information not available 01/25/2022 What is your occupation? retired Information not available 04/10/2022 What is your exercise level? Occasional Information not available 04/10/2022 Mental Status None recorded. Family History Relationship Description Onset Age of this Age Resolved Age Notes LastModified by Organization Details LastModified Time Maternal Grandmother Family history of stroke 72 72 Not available 01/01 10:04:48 Paternal Grandmother Family history of malignant neoplasm 82 83 Not available 01/01 10:04:48 Paternal Aunt Rheumatoid arthritis 38 70 [email or web address] Not available 2022 11:33:47 Paternal Aunt Arthritis 1955 Not a vailable 06/28/2022 11:33:47 Paternal Grandfather Family history of stroke 72 [email or web address] Not available 2022 11:33:47 Maternal Grandfather Family history of malignant neoplasm 50 [email or web address] Not available 2022 11:33:47 Sister Arthritis 60 Not availabl e 06/28/2022 11:33:47 Medical History Condition Response Acid Reflux (GERD) Y Thyroid Problems Y Gynecological HistoryNo gynecological history recorded. Obstetrics History GPAL:G 0 P 0 0 0 0 Immunizations Vaccine Type Date Status Note Provider Nam e and Address Organization Details Recorded Time COVID-19, mRNA, LNP-S, PF, 30 mcg/0.3 mL dose 01/03/2021 completed Jess Bella [facility] 01/25/2022 10:13:13 Past Encounters Encounter ID Performer Location Encounter Start Date Encounter Closed Date Diagnosis/Indication Diagnosis SNOMED-CT Code Diagnosis ICD10 Code Diagnosis IMO Codes Diagnosis Note [id number] DANTE MOLINA DPM [address] [address] 01/25/2022 09:46:16 01/25/2022 10:48:44 Tibialis posterior tendinitis 153646356 M76.8[address] [id number] [address] 02/08/2022 11:09:18 02/08/2022 12:22:52 Tibialis posterior tendinitis 506786263 M76.821 [id number] MARTY DURAN[address] [address] 03/08/2022 11:17:56 03/08/2022 11:44:53 Tibialis posterior tendinitis 901627833 M76.821 [id number] MARTY DURAN[address] [address] 04/10/2022 12:31:33 04/10/2022 14:07:16 Tibialis posterior tendinitis 677253356 M76.821 [id number] M[address]Y D[address] [address] 06/28/2022 11:26:08 06/28/2022 12:11:39 Tendinitis of right posterior tibial tendon 0778233801 75543 M76.821 [id number] DARRELL STEWART [address] [address] 06/28/2022 11:26:09 06/28/2022 12:18:02 [id number] DANTE MOLINA DPM [address] [address] 08/23/2022 11:17:09 08/23/2022 13:52:03 Tendinitis of right posterior tibial tendon 3133518555 02508 M76.821 [id number] DANTE MOLINA DPM [address] [address] 10/03/2022 12:56:03 10/03/2022 13:25:36 Tendinitis of right posterior tibial tendon 6373283414 61564 M76.821 Health Concerns Section Related Observation LastModified by Organization Detai ls LastModified Time None Recorded Concern Status LastModified by Organization Details LastModified Time None Recorded Advance Directives Directive None Recorded Payers Insurance Date Sequence Insurance Name Policy Number Policy Wagner Covered Member ID Wagner Member ID Guarantor Name 10/10/2022 [employer] - SPECIALITY CLAIMS (MEDICARE [facility] A) Sandra Y Alexis [id number] Sandra Alexis 10/10/2022 1 MEDICARE [place]: [employer] Sandra Y Alexis [id number] Sandra Alexis 11/05/2022 2 [facility] [id number] Sandra Y Alexis [id number] Sandra Alexis Notes Date Note Type Note Provider Name and Address Organization Details Recorded Time 04/10/2022 text/html ROS as noted in the [facility] Grace returns for follow-up of right PT tendinosis with MRI documented partial tear relating no appreciable improvement despite 8 weeks of CAM Walker immobilization. Still experiencing pain in the boot. DANTE MOLINA DPM [address] [place], [address], [facility] 04/10/2022 13:36:20 06/28/2022 text/html ROS as noted in the [facility] Grace returns for planned PRP injection for right PT tendinosis. Again reviewed the procedure as well as the recovery time and success/failure rates. DANTE MOLINA DPM [address] [place], [address], [facility] 06/28/2022 12:04:27 08/23/2022 text/html ROS as noted in the HPI Sandra returns relating significant improvement following PRP injection 8 weeks ago. She is pleased with her progress. DANTE MOLINA DPM [address] [place], [address], [facility] 08/23/2022 12:08:55 10/03/2022 text/html ROS as noted in the HPI Grace returns now approximate 12-week status post PRP injection for right-sided tibialis posterior tendinosis with degenerative tearing. She is doing very well and in fact is pain-free at this point. DANTE MOLINA DPM [address], [place], [address], [facility] 10/03/2022 13:25:22 OBGyn Episode No OBEpisode recorded.
--- OUTSIDE RECORDS SUMMARY | 2025-04-13 13:42 | XMS_ITS | Clinical Summary ---
Author Organization [facility] Address [address] [place] [address] Phone Care Team Providers Care Corporate Accounting Manager Name Role Phone Linda Bell NP Primary Care Provider [phone] Matheus Lopez MD Unavailable [phone] Social History Tobacco Use Types Packs/Day Years [...] 2022 INFLUENZA VACCINE (#1) 2024 COVID-19 VACCINE (2024-2 6 season) 2025 HEPATITIS A VACCINES Aged Out No long er eligible based on patient's age to complete this topic HIB VACCINES Aged Out No longer eligi ble based on patient's age to complete this topic IPV VACCINES Aged Out No longer eligi ble based on patient's age to complete this topic MENINGOCOCCAL VACCINES (ACWY) Aged Out No longer eligible based on patient's age to complete this topic MENINGOCOCCAL VACCINES (B) Aged Out N o longer eligible based on patient's age to complete this topic Medical Devices Not on file Insurance MEDICARE PART A & B [facility] MEDEX SUPPLEMENT MEDICARE PART A & B Member Subscriber Plan / Payer (Ef fective 2012-Present) Name:Sandra Espinoza Member ID:[id number] Relation to Subscriber:Self Name:AlexisSandra Subscriber ID:[id number] Payer ID:[id number] Group ID:Not on file Type:Medicare Address: [employer] [address] [place] [phone] [employer] MEDEX SUPPLEMENT MEDICARE PART A & B [employer] MEDEX SUPPLEMENT MEDICARE PART A & B Member Subscriber Plan / Payer ( fective 2012-Present) Name:Sandra Espinoza Member ID:[id number] Relation to Subscriber:Self Name:Sandra Espinoza Subscriber ID:[id number] Payer ID:[id number] Group ID:Not on file Type:Medicare Address: [employer] [address] [employer] CROSS MEDEX SUPPLEMENT MEDICARE PART A & B [employer] MEDEX SUPPLEMENT MEDICARE PART A & B [employer] CROSS MEDEX SUPPLEMENT Care Teams Corporate Accounting Manager Relationship Specialty Start Date End Date Linda Bell NP [address] [place] [address] Dr ELY Melissa [facility] [place] [address] [email or web address] PCP - General Nurse Practitioner 01/23/23 Matheus Lopez MD [address] [place] [address] [place] [address] Orthopedic Surgery 01/27/23 Additional Source Comments The information contained in this document represents components of the legal health record. It is not the complete legal health record.[facility]
--- OUTSIDE RECORDS SUMMARY | 2025-04-13 13:42 | XMS_ITS | Clinical Summary ---
Author Organization [facility] Address [address] [place] [address] Care Team Providers Care Counter Hand Name Role Phone Caleb Perkins MD Primary [...] update Hyperlipidemia 08/23/2005 09/29/2020 Overview: 10/11-mibi at [facility] negative for ischemia GERD (gastroesophageal reflux disease) [...] 2 Alive Father Maternal Grandfather Maternal Grandmother CT age mid 70 Mother Paternal Grandfather Paternal [...] age to complete this topic Care Teams Counter Hand Relationship Specialty Start Date End Date Caleb Perkins MD PCP - General Internal Medicine 06/09/23
== END 2025-04-13 13:00 ==
LOC: HO.HPS 11:04
PROVIDERS: PCP Internal Medicine; Visit Provider Hospitalist
DX: J45.40 Moderate persistent asthma, uncomplicated (principal); D72.10 Eosinophilia, unspecified; J44.9 Chronic obstructive pulmonary disease, unspecified
CPT/HCPCS: 99214; G2211

== ENCOUNTER → 2025-04-13 11:04 | Outpatient (BNVA) | payer MEDICARE, SELFPAY | PROVIDERS: PCP Internal Medicine; Visit Provider Hospitalist | DX: J45.40 Moderate persistent asthma, uncomplicated (principal); Z87.891 Personal history of nicotine dependence; D72.10 Eosinophilia, unspecified; J44.9 Chronic obstructive pulmonary disease, unspecified | CPT/HCPCS: 99212 ==

== ENCOUNTER 2025-05-17 11:38 | Emergency (ER) | payer MEDICARE, SELFPAY ==
--- OUTSIDE RECORDS SUMMARY | 2024-12-13 04:10 | XMS_ITS ---
Author Organization [facility] Address [address] [place] [address] Care Team Providers Care Kayak Maker Name Role Phone Caleb Perkins M.D. Primary Care Provider Ronda Refugio Wick [phone] REASON FOR VISIT screening,serrated polyp Encounters Encounter Location Date Provider Diagnosis [facility] Outpatient [address] [place] [phone] 12/13/2024 Refugio Mix Plan Of Treatment No Information Progress Notes * JORI CAMERON YDOB: (79 yo F)Acc No.[id number]:12/13/2024 COLON WITH MAC Patient: CAMERON HUBER Provider: Lázaro Mix MD :1945 A ge:79 Y S ex:Female Date:12/13/2024 Address:[address] [place], [place] [phone] Pcp:Caleb Perkins M.D. Subjective: * Chief Complaints: * S creening,serrated polyp * The named appointment provid er may or may not be the originator of this progress note, and it is not deemed complete until electronically signed by the appointment provider. Sign off status: Pending * Provider: Lázaro Mix MD Date: 0 12/13/2024 Generated for Mariangel silva/Alvarado/Leroyitting on: 1 07/18/2024 06:46 PM EST
--- OUTSIDE RECORDS SUMMARY | 2025-03-07 05:30 | XMS_ITS ---
Author Organization [facility] Address [address] [place] [phone] Care Team Providers Care Semiconductor Development Technician Name Role Phone Caleb Perkins M.D. Primary Care Provider Ronda Refugio Wick [phone] REASON FOR VISIT screening,serrated polyp Encounters Encounter Location Date Provider Diagnosis [facility] [place] [address] [place] [phone] 03/07/2025 Refugio Mix Plan Of Treatment No Information Progress Notes * JORI CAMERON YDOB: [birth year] (79 yo F)Acc No.[id number]:03/07/2025 COLON WITH MAC Patient: CAMERON HUBER Provider: Lázaro Mix MD :1945 A ge:79 Y S ex:Female Date:03/07/2025 Address:[address] [place], [place] [phone] Pcp:Caleb Perkins M.D. Subjective: * Chief Complaints: * S creening,serrated polyp Billing Information: * Procedure Codes: * The named appointment provid er may or may not be the originator of this progress note, and it is not deemed complete until electronically signed by the appointment provider. Sign off status: Pending * Provider: Lázaro Mix MD Date: Generated for Mariangel silva/Alvarado/Leroyitting on: 07/18/2024 06:46 PM EST
--- NOTE | ~2025-05-17 | XR_ITS ---
EXAMINATION: XR CHEST CLINICAL INFORMATION: cough COMPARISON: 03/01/2025. TECHNIQUE: 2 views of the chest were obtained. FINDINGS: The cardiac, hilar, and mediastinal contours are normal. Lungs demonstrate mildly increased parenchymal markings in the retrocardiac region. Lungs otherwise clear. There is no pneumothorax or pleural effusion. There is no focal osseous or soft tissue abnormality. Cholecystectomy clips are present. XR/XR chest 2V IMPRESSION: Mild increased retrocardiac parenchymal markings, either residua of previous pneumonia or recurrent infectious/inflammatory abnormality. Electronically signed by: Stephen Charles MD 05/17/2025 12:56 PM [facility]
[2025-05-17 12:37] VITALS: BP 128/60; PULSE 84; RESP 18; TEMP 36.7; O2SAT 95; BMI 37.2
--- NOTE | 2025-05-17 12:38 | ED.URI ---
HPI - URI/Sore Throat General Chief Complaint: Upper Respiratory Symptoms Stated Complaint: SOB, cough Time Seen by Provider: 05/17/25 14:12 Source: patient and old records reviewed Mode of arrival: ambulatory Limitations: no limitations History of Present Illness ED Provider: RETA ALEXIS Narrative: 79-year-old female with past medical history of asthma COPD overlap not on home O2 she is a former smoker, and hypothyroidism here with cough and sputum x 2 days. No edema, no chest pain. She has mild shortness of breath. She has no travel or sick contacts. She states I think I have a cold . Patient denies any other complaints. MD elicited complaint: cough Pertinent past history: COPD Onset (ago): day(s) (2) Consistency: constant Severity: moderate Description of mucous: yellow Able to tolerate fluids by mouth: Yes Exacerbating factors: exertion Relieving factors: nothing Associated symptoms: cough and shortness of breath Treatments prior to arrival: none Related Data Home Medications ?Medication ?Instructions ?Recorded ?Confirmed citalopram 20 mg tablet 1 tab PO BEDTIME 10/03/20 03/03/25 levothyroxine 125 mcg tablet 1 tab PO BEDTIME 10/03/20 03/03/25 omeprazole 20 mg tablet,delayed 20 mg PO BEDTIME 10/03/20 06/28/21 release budesonide-formoterol HFA 160 2 puff inhalation BID 05/15/21 03/03/25 mcg-4.5 mcg/actuation aerosol inhaler (Symbicort) ibuprofen-diphenhydramine citrate 1 cap PO BEDTIME PRN 12/28/21 200 mg-38 mg tablet (Advil PM) Previous Rx's ?Medication ?Instructions ?Recorded albuterol sulfate 2.5 mg/3 mL 2.5 mg (3 mL) inhalation DAILY 30 12/28/21 (0.083 %) solution for nebulization days #90 mL albuterol sulfate 90 mcg/actuation 2 puff inhalation QID PRN 12/21/24 aerosol inhaler (Ventolin HFA) shortness of breath or wheezing 30 days #18 grams budesonide 160 mcg-glycopyr 9 2 inh inhalation BID #10.7 grams 12/21/24 mcg-formot 4.8 mcg/actuation HFA inhaler (Breztri Aerosphere) montelukast 10 mg tablet 10 mg PO BEDTIME #90 tabs 12/21/24 cefuroxime axetil 500 mg tablet 500 mg PO BID 7 days #14 tabs 05/17/25 doxycycline hyclate 100 mg capsule 100 mg PO BID 7 days #14 caps 05/17/25 prednisone 20 mg tablet 40 mg (2 x 20 mg) PO DAILY 5 days 05/17/25 #10 tabs Allergies Allergy/AdvReac Type Severity Reaction Status Date / Time erythromycin base Allergy Intermediate swelling, Verified 05/17/25 12:39 itching Penicillins Allergy Intermediate itching/swe Verified 05/17/25 12:39 lling/rash nickel Allergy Unknown Verified 05/17/25 12:39 Review of Systems Review of Systems: Yes all other systems are reviewed and are negative PMFSH Past Medical History Attestation statement: The following information was validated with the patient. Source: old records reviewed Medical History Abnormal colonoscopy Hiatal hernia HLD (hyperlipidemia) Asthma-COPD overlap syndrome COVID-19 vaccine series completed Bilateral lower extremity edema Eosinophilia Asthma History of positive PPD Hypothyroid GERD (gastroesophageal reflux disease) History of anxiety Elevated cholesterol Surgical History History of left hip replacement (2018) Hx of cataract extraction History of total replacement of right hip Hx of hysterectomy (1991) Hx of cholecystectomy (1996) Social History Social History Are you a primary personal care aide to a significant other at home: No Do you presently have visiting nurse or other home services: No Patient Tobacco Use Status: Former Tobacco user Tobacco use type: Cigarette Years Smoked: 40 Advance Directives Date on File: 07/12/15 Physical Exam Vital Signs: Vital Signs: Last Vital Signs Temp 98.1 F 05/17/25 12:37 Pulse 84 05/17/25 12:37 Resp 18 05/17/25 12:37 BP 128/60 05/17/25 12:37 Pulse Ox 95 05/17/25 12:37 O2 Del Method Room Air 05/17/25 12:37 BMI result Body Mass Index 37.2 Appearance: Alert. Oriented X3. No acute distress. Eyes: Pupils equal, round and reactive to light. ENT: Pharynx normal. Neck: Normal inspection. Neck supple. CVS: Normal heart rate and rhythm. Pulses normal. Respiratory: No respiratory distress. Breath sounds coarse but no wheezes she is not labored, she is faintly more diminished in LLL. Abdomen: Soft and nontender. Skin: Skin warm and dry. Normal skin color. Normal skin turgor. Extremities: No lower extremity edema. No calf ttp Neuro: Oriented X 3. No motor deficit. No sensory deficit. CN2-12 intact Course Course Course Narrative: 79-year-old female with past medical history of asthma COPD overlap not on home O2 she is a former smoker, and hypothyroidism here with 2 days of yellow sputum, cough, runny nose, chills but no fevers. She has no chest pain. She denies any sick contact her travel. She is not on any current antibiotics or prednisone. She did have recent prednisone in the last couple of weeks but not antibiotics. At this time I will start workup with labs, chest x-ray, viral panel. She is not labored she has a O2 sat of 93% if workup is negative I would recommend she be started on prednisone and doxycycline. this is a RAPID medical screening exam the rest of the history and physical exam is to be done by the main provider. 12:39 PM 05/17/2025 (RETA MARTINEZ): Medical Decision Making Medical Decision Making [facility] Narrative: 79-year-old female with past medical history of asthma COPD overlap not on home O2 she is a former smoker, and hypothyroidism here with URI symptoms x 2 days. She is not labored. She will has no fevers, edema, chest pain. At this time would obtain basic labs, CXR, and viral panel. She has no chest pain to suggest ACS or VTE. I suspect this is viral and infectious. Differential Diagnosis Differential Diagnoses: The differential diagnosis associated with the presentation includes pneumonia, viral, bronchitis Admission/Observation Consideration of admission/observation: Escalation of care including admission/observation considered work up reassuring not toxic, no hypoxia not labored can be managed as an outpatient Lab Data [facility] Lab Attestation statement: I reviewed the patient's lab results. 05/17/25 13:15 05/17/25 13:15 Labs: Lab Results 05/17/25 Range/Units 13:15 WBC 9.8 (4.8-10.8) X10*3/uL RBC 4.44 (4.20-5.50) X10*6/uL Hgb 12.7 (12.0-16.0) g/dl Hct 39.3 (37.0-47.0) % MCV 88.5 (80.0-98.0) fL MCH 28.6 (27.0-33.0) pg MCHC 32.3 (31.0-35.0) g/dl RDW 13.3 (11.0-16.0) % Plt Count 261 (160-400) X10*3/uL MPV 9.6 (9.4-12.3) fL Immature Gran % (Auto) 0.3 (0.0-0.4) % Neut % (Auto) 65.6 (45-73) % Lymph % (Auto) 21.9 (20-40) % [place] % (Auto) 5.7 (2-11) % Eos % (Auto) 5.6 H (0-4) % Baso % (Auto) 0.9 (0-2) % Lymph # (Auto) 2.2 (1.2-4.9) X10*3/uL [place] # (Auto) 0.6 (0.1-1.2) X10*3/uL Eos # (Auto) 0.6 H (0.0-0.4) X10*3/uL Baso # (Auto) 0.1 (0.0-0.2) X10*3/uL Abs Immat Gran (auto) 0.03 (0.00-0.03) X10*3/uL Absolute Neuts (auto) 6.5 (2.0-8.3) x10*3/uL Absolute Nucleated RBC 0.000 (0.0-0.012) X10*3/uL Nucleated RBC % (auto) 0.0 (0.0-0.2) /100WBC Sodium 140 (135-145) mmol/L Potassium 4.3 (3.3-5.1) mmol/L Chloride 107 (96-108) mmol/L Carbon Dioxide 27 (22-29) mmol/L Anion Gap 10 L (12-20) BUN 14 (9-16) mg/dL Creatinine 0.78 (0.5-1.4) mg/dL Estim Creat Clear Calc 66.3 Estimated GFR > 60 Random Glucose 100 (60-115) mg/dL Calcium 9.2 (8.4-10.2) mg/dL Magnesium 2.1 (1.6-2.6) mg/dL Total Bilirubin 0.3 (0.0-1.0) mg/dL Direct Bilirubin 0.1 (0.0-0.5) mg/dL AST 17 (5-31) U/L ALT 11 (0-31) U/L Alkaline Phosphatase 87 (39-117) U/L Total Protein 6.5 (6.5-8.0) g/dL Albumin 4.0 (3.5-5.0) g/dL Influenza Type A (PCR) NEGATIVE (Negative) Influenza Type B (PCR) NEGATIVE (Negative) RSV RNA Qual (PCR) NEGATIVE (Negative) SARS-CoV-2 RNA (RT-PCR) NEGATIVE (Negative) Independent Interpretation I performed an independent interpretation of an: Plain X-Ray (LLL opacity) Radiology Impression Discussion of test interpretation with radiology: I have reviewed the radiologist's reading. External Record Review External record reviewed: Outpatient record Prescription Management I considered prescription management with: Antibiotic and Other Discharge Plan Discharge Clinical Impression: Acute exacerbation of chronic obstructive pulmonary disease Pneumonia Qualifiers: Pneumonia type: due to unspecified organism Laterality: left Lung location: lower lobe of lung Qualified Code(s): J18.9 - Pneumonia, unspecified organism Patient Disposition: Home, Self-Care Instructions: COPD (Chronic Obstructive Pulmonary Disease) (ED), Community Acquired Pneumonia (ED) Additional Instructions: your viral panel was negative for flu, covid, rsv you have the start of a mild pneumonia in left lower lung your labs are otherwise reassuring please return for any worsening symptoms or concerns. make sure your oxygen level does not drop below 90% On doxycycline, do not take pills immediately before going to bed and swallow pills with plenty of water. Avoid direct sunlight, iron, antacids, and Pepto Bismol. Call your provider if you develop new ringing in your ears, new problems hearing, dizziness, difficulty swallowing, rash, abdominal discomfort, nausea, or diarrhea.? On a cephalosporin?antibiotic, softer bowel movements are to be expected. Call your provider if you move your bowels more than 4 times a day, your bowel movements are almost all liquid, or you get a rash.?? Prescriptions: New doxycycline hyclate 100 mg capsule 100 mg PO BID 7 Days Qty: 14 0RF prednisone 20 mg tablet 40 mg PO DAILY 5 Days Qty: 10 0RF cefuroxime axetil 500 mg tablet 500 mg PO BID 7 Days Qty: 14 0RF No Action citalopram 20 mg tablet 1 tab PO BEDTIME levothyroxine 125 mcg tablet 1 tab PO BEDTIME omeprazole 20 mg Tablet,Delayed Release (Dr/Ec) 20 mg PO BEDTIME Advil PM 200-38 mg tablet 1 cap PO BEDTIME PRN budesonide-formoterol [Symbicort] 160-4.5 mcg/actuation HFA aerosol inhaler 2 puff inhalation BID albuterol sulfate 2.5 mg /3 mL (0.083 %) solution for nebulization 2.5 mg inhalation DAILY 30 Days Qty: 90 11RF Breztri Aerosphere 160-9-4.8 mcg/actuation HFA aerosol inhaler 2 inh inhalation BID Qty: 10.7 11RF montelukast 10 mg tablet 10 mg PO BEDTIME Qty: 90 3RF albuterol sulfate [Ventolin HFA] 90 mcg/actuation HFA aerosol inhaler 2 puff inhalation QID PRN (Reason: shortness of breath or wheezing) 30 Days Qty: 18 11RF Print Language: Ghanaian
[2025-05-17 13:23] LABS: MANUAL DIFF FLAG NO
[2025-05-17 13:25] LABS: Hematocrit 39.3 % (37.0-47.0); Hemoglobin 12.7 g/dl (12.0-16.0); Imm Gran Abs Auto 0.03 X10*3/uL (0.00-0.03); Imm Gran Pct Auto 0.3 % (0.0-0.4); Lymphocytes Absolute Auto 2.2 X10*3/uL (1.2-4.9); Mean Corpuscular HGB Conc 32.3 g/dl (31.0-35.0); Mean Corpuscular Hemoglobin 28.6 pg (27.0-33.0); Mean Corpuscular Volume 88.5 fL (80.0-98.0); NRBC Abs Auto 0.000 X10*3/uL (0.0-0.012); NRBC Pct Auto 0.0 /100WBC (0.0-0.2); Platelet Count 261 X10*3/uL (160-400); Red Blood Count 4.44 X10*6/uL (4.20-5.50); White Blood Count 9.8 X10*3/uL (4.8-10.8)
[2025-05-17 13:42] LABS: Alanine Aminotransferase 11 U/L (0-31); Albumin Level 4.0 g/dL (3.5-5.0); Alkaline Phosphatase 87 U/L (39-117); Anion Gap 10 (12-20); Aspartate Amino Transferase 17 U/L (5-31); Blood Urea Nitrogen 14 mg/dL (9-16); Calcium 9.2 mg/dL (8.4-10.2); Carbon Dioxide 27 mmol/L (22-29); Chloride 107 mmol/L (96-108); Creatinine Clr Calc Pharmacy 66.3; Estimated Glomerular Filt Rate > 60; Magnesium 2.1 mg/dL (1.6-2.6); Potassium 4.3 mmol/L (3.3-5.1); Sodium 140 mmol/L (135-145); Total Protein 6.5 g/dL (6.5-8.0)
[2025-05-17 14:00] LABS: Resp Syncy Virus RNA Qual PCR NEGATIVE (Negative); SARS COV2 PCR INHOUSE NEGATIVE (Negative)
[2025-05-17 14:37] VITALS: RESP 20; O2SAT 95
--- OUTSIDE RECORDS SUMMARY | 2025-05-17 18:46 | XMS_ITS | Clinical Summary ---
Author Organization Located Within [facility] Address [address] [place] [phone] Phone Care Team Providers Care Rotary Peel Oven Tender Name Role Phone Linda Blel NP Primary Care Provider + [phone] Matheus Lopez MD Unavailable Social History Tobacco Use Types Packs/Day Years [...] file Insurance MEDICARE PART A & B [facility] MEDEX SUPPLEMENT MEDICARE PART A & B [employer] MED[employer] SUPPLEMENT MEDICARE PART A & B [employer] SUPPLEMENT MEDICARE PART A & B [employer] MED[employer] SUPPLEMENT MEDICARE PART A & B [employer] MEDEX SUPPLEMENT MEDICARE PART A & B [employer] MEDEX SUPPLEMENT Care Teams Rotary Peel Oven Tender Relationship Specialty Start Date End Date Linda Bell NP [address] [place] [address] [place] [id number] [email or web address] PCP - General Nurse Practitioner 01/23/23 Matheus Lopez MD [address] [place] [address] [place] [id number] Orthopedic Surgery 01/27/23 Additional Source Comments The information contained in this document represents components of the legal health record. It is not the complete legal health record.Located Within [facility]
--- OUTSIDE RECORDS SUMMARY | 2025-05-17 18:46 | XMS_ITS | Clinical Summary ---
Author Organization [facility] Prior to 10/30/24 Address [address] [place] [address] Care Team Providers Care Palliative Care Physician Name Role Phone Caleb Perkins MD Primary [...] update Hyperlipidemia 08/23/2005 09/29/2020 Overview: 10/11-[facility]ibi at [place] negative for ischemia GERD (gastroesophageal reflux disease) 05/08/2022 Immunizations Name Administration Dates Next Due Covid-19 (Prizzm) Dilution Required 01/03/2021,0 08/10/2020,07/20/2020 Influenza Quad (Fluad) [...] 2 Alive Father Maternal Grandfather Maternal Grandmother [place] age mid 70 Mother Paternal Grandfather Paternal [...] (DEXA Scan) 12/16/2024 12/16/2022 (Declined) COVID-19 Vaccine (4 - 2025-26 season) 2025 01/03/2021, 08/10/2020, 07/20/2020 Influenza Vaccine (#1) 2025 3, 05/07/2021, 03/02/2021 DTap / Tdap / Td (3 - Td or Tdap) 05/12/2033 05/12/2023, 05/07/2004 Hepatitis B Vaccines Aged Out No long er eligible based on patient's age to complete this topic Pneumococcal Vaccine Discontinued RSV Ped < 20 months Aged Out No longe r eligible based on patient's age to complete this topic Care Teams Palliative Care Physician Relationship Specialty Start Date End Date Caleb Perkins MD PCP - General Internal Medicine 06/09/23
--- OUTSIDE RECORDS SUMMARY | 2025-05-17 18:46 | XMS_ITS | Clinical Summary ---
Author Organization [address] [place] [address] Building Address [address] [place] [address] Phone Care Team Providers Care Motor Rebuilder Name Role Phone Caleb Perkins MD Primary [...] thereafter 30 g 3 08/18/19 25 Active budesonide-formote roL (SYMBICORT) 160-4.5 mcg/actuation inhaler INHALE 2 INHALATIONS INTO THE LUNGS 2 TIMES A DAY 51 g 01/08/20 25 Active citalopram (CeleXA) 20 mg tablet Take 1 tablet (20 mg total) by mouth 1 (one) time each day. 90 tablet 3 02/23/20 25 Active levothyroxine (SYNTHROID, LEVOTHROID) 112 mcg tabletIndications: Acquired hypothyroidism TAKE 1 TABLET BY MOUTH DAILY FOR 5 DAYS A WEEK 90 tablet 03/22/20 25 Active Active Problems Problem Noted Date Diagnosed Date Anxiety 04/06/2024 Diverticulosis of colon 05/08/2022 Gastro-esophageal reflux dis ease with esophagitis, without bleeding 05/08/2022 Simple chronic bronchitis 10/31/2021 Lichen sclerosus 09/05/2020 [...] update Hyperlipidemia 08/23/2005 Overview (04/06/2024): 10/11-mibi at [place] negative for ischemia Assessment & Plan (05/19/2024 1:03 PM EST): -stable Hypothyroidism 08/23/2005 Assessment & Plan (05/19/2024 1:03 PM EST): -continue synthroid 112 mcg daily 5 days a week Orders: Lipid panel; Future CBC and differential; Future Comprehensive metabolic panel; Future Thyroid stimulating hormone; Future Encounters Date Type Department Care Team Description 02/23/2025 Telephone Internal Medicine - [place] [address] [facility] [address] [place] [address] Jeanie Sanchez MA 02/18/2025 11:30 AM EDT Office Visit Internal Medicine - [place] [address] [facility] [address] [place] [address] Caleb Perkins MD Obstructive sleep apnea syndrome (Primary Dx) from Last 3 Months Immunizations Immunization Administration Dates Next Due Influenza Quadravalent, 0.5m l (Fluad) 65yo and older 05/07/2021 Influenza Quadravalent, 0.5m l (Fluzone High-dose) 65yo and older 05/12/2023,03/27/2022,04/03/2017 Influenza trivalent, with pr eservative (Fluzone; Afluria) 6mo and older 03/02/2021 [employer] SARS-CoV-2 COVID-19, mRNA, LNP-S, preservative free 01/03/2021 [...] 2 Alive Father Maternal Grandfather Maternal Grandmother [place] age mid 70 Mother Paternal Grandfather Paternal [...] AM EDT Office Visit Internal Medicine - [place] [facility] [address] [address] Caleb Perkins MD [address] [place] [address] Health Maintenance Due Date Last Done Comments [...] Results * External clinical lab (02/18/2025) Provider [place] [facility] LAB BLOOD ORDERABLES Fin al Result * Falls Risk Assessment (05/12/2023) Pathologist [facility] [place] Risk Assessment abstracted Historical Provider HEALTH MAINTENANCE Final Result * Depression Screening (05/12/2023) Depression Screening abstracted Historical Provider HEALTH MAINTENANCE Final Result * Lipid panel (05/12/2023) Triglycerides 0 mg/dL Comment:no interpretation Cholesterol 0 mg/dL Comment:n interpretation HDL 0 mg/dL Comment:no interpretation LDL Cholesterol 0 mg/dL Comment:no interpretation Blood Venous blood specimen / Unknown us Historical Provider LAB BLOOD ORDERABLES Breanne l Result from Last 3 Months or Most Recently Relevant to Health Maintenance Insurance MEDICARE [facility] Care Teams Motor Rebuilder Relationship Specialty Start Date End Date Caleb Perkins MD [address] [place] [address] PCP - General 06/09/23
--- OUTSIDE RECORDS SUMMARY | 2025-05-17 18:46 | XMS_ITS | Data Portability ---
Author Organization [facility], OFFICE Address [address], [address] [address] Assessment Encounter Date Assessment Date Assessment LastModified [...] 12/23/2018 14:59:11 Hysterectomy completed Matheus Lopez MD [address] [place], [place] [address], [place], [address], [place] - [facility] 07/24/2018 14:09:48 Cholecystectomy completed Matheus Lopez MD [address], [place], [address], [place] - Comp-Assistd and [facility] 07/24/2018 14:10:02 Imaging Results None recorded. Procedure Notes None recorded. Medical Equipment None Reported. Allergies Allergen ID Allergen Name Allergen Category Reaction Reaction Severity Criticality Documentation Date Start Date Code Code System Note Provider Name and Address Organization Details Recorded Time 9135 nickel environme nt Not available Not available Not available 07/24/2018 22838 29 RxNorm Matheus Lopez MD [address],[facility] [address], [place], [address], [place] [facility] 9 14:07:37 9136 Product containin g penicilli n (product) medicatio n Not available Not available Not available 07/24/2018 17258 8001 SNOMED Matheus Lopez MD [address],[facility] [address], [place], [address], [place] - Comp-Assistd and Rcnstrctive Surgry [...] Updated DateTime 07/24/2018 160.02 cm 36.7 kg/m2 49732.62 g 111/66 mm[Hg] Jess Santiago [facility] 07/24/2018 13:14:31 Date Recorded Body height Body mass index (BMI) Body weight Provider Name and Address Organization Details Last Updated DateTime 10/21/2022 160.02 cm 37.2 kg/m2 34693.4 g Jess Sanitago Comp[facility]Assistd and [facility] 10/21/2022 08:25:55 Date Recorded Body height Body mass index (BMI) Body weight Systolic And Diastolic Provider Name and Address Organization Details Last Updated DateTime 12/23/2018 160.02 cm 36.7 kg/m2 87531.62 g 117/68 mm[Hg] Jess Fuentes [place] - [...] Smoking Status Former Smoker Matheus Lopez MD [address] [place] [address],[facility] [address], [place], [address], [place] - [facility]Assistd and [facility] 07/24/2018 14:09:26 Do You Have An Advance Directive? Yes [email or web address] Information not available 10/21/2022 Do You Have A Medical Power Of Drill Press Operator Numerical Control? Yes [email or web address] Information not available 10/21/2022 What Was The Date Of Your Most Recent Tobacco Screening? 10/21/2022 [email or web address] Information not available 10/21/2022 How Much Tobacco Do You Smoke? No [email or web address] Information not available 12/23/2018 Has Tobacco Cessation Counseling Been Provided? No [email or web address] Information not available 10/21/2022 How Many Years Have You Smoked Tobacco? 40 [email or web address] Information not available 12/23/2018 Sex: Unknown Functional Status Question Answer Note LastModified by Organization D etails LastModified Time Do you or have you ever used any other forms of tobacco or nicotine? No [email or web address] Information not available 10/21/2022 Are you able to care for yourself independently? Yes [email or web address] Information not available 10/21/2022 Mental Status None recorded. Family History Relationship Description Onset Age of this Age Resolved Age Notes LastModified by Organization Details LastModified Time Father Idiopathic pulmonary arterial hypertension [email or web address] Not available 14:09:03 Mother Chronic obstructive pulmonary disease [email or web address] Not available 2018 14:09:19 Medical History Condition Response Coronary Artery Disease N Heart Problems N Gout N Anxiety/Depression N Blood Transfusion N Hernia N Migraines N Thyroid Problems Y COPD N Pacemaker N Anemia N Ulcers N Heart Attack (MD) N Diabetes N Bleeding Disorder N Orthotics N Arthritis N Seizures/Epilepsy N Blood Clot N Tuberculosis N AIDS/HIV N Cancer N Stroke N Asthma N Peripheral Vascular Disease N High Cholesterol Y Hepatitis N Liver Disease N Rheumatoid Arthritis N Pulmonary Embolism N Hypertension N Osteoporosis N Kidney Disease N Gynecological HistoryNo gynecological history recorded. Obstetrics History GPAL:G 0 P 0 0 0 0 Past Encounters Encounter ID Performer Location Encounter Start Date Encounter Closed Date Diagnosis/Indication Diagnosis SNOMED-CT Code Diagnosis ICD10 Code Diagnosis IMO Codes Diagnosis Note [id number] Matheus Lopez MD OFFICE [address] [facility], [address] [address] 07/24/2018 12:01:53 07/24/2018 17:35:38 [id number] Matheus Lopez MD OFFICE [address] [facility], [address] [address] 12/23/2018 12:56:14 12/23/2018 16:59:24 [id number] [facility] MD [facility] [address] [place] [address] 10/21/2022 08:25:03 10/28/2022 16:29:00 [id number] [facility] MD [facility] [address] [place] [address] 02/17/2023 08:11:56 02/20/2023 12:18:50 Health Concerns Section Related Observation LastModified by Organization Detai ls LastModified Time None Recorded Concern Status LastModified by Organization Details LastModified Time None Recorded Advance Directives Directive Y: Payers Insurance Date Sequence Insurance Name Policy Number Policy Wagner Covered Member ID Wagner Member ID Guarantor Name 03/23/2023 1 [place] [employer] Sandra Y Alexis [id number] Sandra Alexis 03/24/2023 2 [place] [id number] Sandra Y Alexis [id number] Sandra Alexis Notes Date Note Type [...] in the HPI Matheus Lopez MD [address] [facility] [address], [place], [address], [place] - Comp-Assistd and Rcnstrctive Surgry 07/24/2018 [...] in the HPI Matheus Lopez MD [address] [facility] [address],[facility] [address], [place], [address], [place] - Comp-Assistd and Rcnstrctive Surgry 12/23/2018 [...] reportsdid not help.ROS as noted in the [facility] Matheus Lopez MD [address], [place], [address], [place] - Comp-Assistd and Rcnstrctive Surgry 10/21/2022 [...] Matheus Lopez MD [address], [place], [address], [place] - Comp-Assistd and Rcnstrctive Surgry 02/17/2023 16:34:13 OBGyn Episode No OBEpisode recorded.
--- OUTSIDE RECORDS SUMMARY | 2025-05-17 18:46 | XMS_ITS | Patient Health Record ---
Author Organization [facility] Address [address] [place] [address] Care Team Providers Care Licensing Representative Name Role Phone Caleb Perkins M.D. Primary Care Provider Refugio Valdez [phone] Allergies Allergen (clinical drug ingredient) Drug/Non Drug Allergy documented on EMR Reaction Allergy Type Onset Date Status nickel Nickel Unknown Allergy Active erythromycin Erythromycin Unknown Drug Allergy A ctive Penicillin Itching Drug Allergy Active Results Component Value Reference Range Notes Pathology (Not yet reviewed by provider) Interpretation: Performing Lab:[facility], [address] [place] [phone] Notes/Report: Reason For Referral No Information Medications Medication SIG (Take, Route, Frequency, Duration) Notes Start Date End Date Status Citalopram Hydrobromide 20 MG Tablet Oral; Duration: 90 Active Levothyroxine Sodium 125 MCG Tablet TAKE 1 TABLET BY MOUTH DAILY Oral; Duration: 30 Active Symbicort 160-4.5 MCG/ACT Aerosol Inhalation; Duration: 30 Active Tylenol 325 MG Tablet 1 tablet as needed Orally as needed Not-Taking/PRN Vitamin B Complex Ac tive Immunizations Vaccine Route Administration Date Status Comme nts Influenza Unknown 03/02/2021 Administered Social History Tobacco Use: Social History Observation Description Date Details (start date - stop date) Former Smoker NA - NA Social History Drugs/Alcohol: Social Info Question Answer Notes Alcohol Screen Did you have a drink containing alcohol in the past year? Yes How often did you have a drink containing alcohol in the past year? Never (0 point) How many drinks did you have on a typical day when you were drinking in the past year? 1 or 2 drinks (0 point) How often did you have 6 or more drinks on one occasion in the past year? Never (0 point) Points 0 Interpretation Negative Tobacco Use: Social Info Question Answer Notes Tobacco Use/Smoking Patient is a former smoker How long has it been since you last smoked? > 10 years Additional Details Category Social Info Options Details Miscellaneous: Marital status: Occupation: Retired Section Notes: Nonsmoker; no sig. alcohol Nonsmoker; no sig. alcohol Problems Problem Type SNOMED Code ICD Code Onset Dates Problem Status W/U Status Risk Notes Problem Colon cancer screening (208199695) Colon cancer screening (Z12.11) Active confirmed Problem Screening for malignant neoplasm of colon (579063569) Encounter for screening for malignant neoplasm of colon (Z12.11) Active confirmed Problem Dysphagia (26825888) Dysphagia (R13.10) Active confirmed Problem Esophageal stricture (44292676) Esophageal stricture (K22.2) Active confirmed Problem Hiatal hernia (08205873) Hiatal hernia (K44.9) Active confirmed Problem Diverticulosis of colon (563814647) Diverticulosis of colon (K57.30) Active confirmed Problem Serrated polyp of colon (228896501) Serrated polyp of colon (K63.5) Active confirmed Problem Gastroesophageal reflux disease (625497270) Gastroesophageal reflux disease, unspecified whether esophagitis present (K21.9) Active confirmed Problem Gastroesophageal reflux disease with esophagitis (disorder) (452011583) Gastro-esophageal reflux disease with esophagitis, without bleeding (K21.00) Active confirmed Problem Esophageal dysphagia (55403082) Esophageal dysphagia (R13.19) Active confirmed Vital Signs Blood pressure diastolic 11 mm Hg 09/14/2024 Height 63 in 09/14/2024 Blood pressure systolic 111 mm Hg 09/14/2024 Weight 213 lbs 09/14/2024 BMI 37.73 kg/m2 09/14/2024 Procedures Procedure Date Ordered Date Performed Result Body Sit e COLONOSCOPY 09/14/2024 N/A Encounters Encounter Location Date Provider [place] [facility] [place] [address], [place] [id number] [facility] [address] [place] [address] 09/14/2024 Refugio Mix Esophageal stricture K22.2 ; [...] Date MEDICARE OF [place] [address] [place] [address] [id number] JORI SANDRA Self - patient is the insured [employer] CLAIMS [address] [place] [address] [id number] MAU [id number] Self - patient is the insured Medical (General) History Medical History History ICD Code Denies MO,DM,CVA,renal disease GERD Hypothyroidism Hyperlipidemia Anxiety Asthma-seeing Dr. Aden Lichen sclerosis of perineal area--sees a NEONATAL PEDIATRIC NURSE for periodic biopsies Screening colonoscopy 06/2021 with a sessile serrated cecal polyp, but poor prep Upper endoscopy in June 03 revealed a moderate-sized hiatal hernia and an esophageal stricture that was dilated up to a 19 mm balloon with good effect. There was no esophagitis nor any Tripp's esophagus. Surgical History Surgery Date(Month/Year) Right hip replacement/ left hip replacem ent 2018 Cholecystectomy 1996 Hysterectomy with BSO 1992 Cataracts
== END 2025-05-17 14:38 | disposition home or self-care (01) ==
PROVIDERS: Emergency Provider Emergency Medicine; PCP Internal Medicine
DX: J44.1 Chronic obstructive pulmonary disease with (acute) exacerbation (principal); J18.9 Pneumonia, unspecified organism; R05.9 Cough, unspecified; R06.02 Shortness of breath; Z03.818 Encounter for observation for suspected exposure to other biological agents ruled out; E78.5 Hyperlipidemia, unspecified; E78.00 Pure hypercholesterolemia, unspecified; Z87.891 Personal history of nicotine dependence; Z79.899 Other long term (current) drug therapy
CPT/HCPCS: 71046; 80048; 80076; 83735; 85025; 87637; 99282; 99283

== ENCOUNTER → 2025-05-17 12:37 | Outpatient (BNV) | payer MEDICARE, SELFPAY | PROVIDERS: PCP Internal Medicine; Visit Provider Radiology Diagnostic Radiology | DX: R05.9 Cough, unspecified (principal) | CPT/HCPCS: 71046 ==